=== PATIENT | female | born 1980 | race Caucasian/White ===

== ENCOUNTER 2021-01-23 15:17 | Outpatient (REF) | payer OTHER, SELFPAY ==
[2021-01-23 15:39] LABS: MANUAL DIFF FLAG NO
[2021-01-23 15:47] LABS: Basophils Absolute Auto 0.1 X10*3/uL (0.0-0.2); Basophils Percent Auto 0.7 % (0-2); Eosinophils Absolute Auto 0.1 X10*3/uL (0.0-0.4); Eosinophils Percent Auto 0.9 % (0-4); Hemoglobin 12.7 g/dl (12.0-16.0); Imm Gran Abs Auto 0.04 X10*3/uL (0.00-0.03); Imm Gran Pct Auto 0.3 % (0.0-0.4); Lymphocytes Absolute Auto 2.4 X10*3/uL (1.2-4.9); Lymphocytes Percent Auto 20.7 % (20-40); Mean Corpuscular HGB Conc 33.4 g/dl (31.0-35.0); Mean Corpuscular Volume 92.7 fL (80.0-98.0); Monocytes Absolute Auto 0.6 X10*3/uL (0.1-1.2); Monocytes Percent Auto 5.4 % (2-11); Neutrophils Absolute Auto 8.3 x10*3/uL (2.0-8.3); Platelet Count 251 X10*3/uL (160-400); Red Cell Distribution Width 12.8 % (11.0-16.0); White Blood Count 11.5 X10*3/uL (4.8-10.8)
[2021-01-23 16:12] LABS: Alanine Aminotransferase 16 U/L (0-31); Albumin Level 4.5 g/dL (3.5-5.0); Alkaline Phosphatase 47 U/L (39-117); Anion Gap 11 (12-20); Aspartate Amino Transferase 19 U/L (5-31); Bilirubin Total 0.7 mg/dL (0.0-1.0); Blood Urea Nitrogen 5 mg/dL (9-16); Calcium 9.9 mg/dL (8.4-10.2); Carbon Dioxide 27 mmol/L (22-29); Chloride 104 mmol/L (96-108); Cholesterol 199 mg/dL; Estimated Glomerular Filt Rate > 60; Glucose Fasting 98 mg/dL (60-99); HDL Cholesterol 81 mg/dL; LDL Cholesterol Calculated 110 mg/dl; Potassium 3.8 mmol/L (3.3-5.1); Sodium 138 mmol/L (135-145); Total Protein 7.1 g/dL (6.5-8.0); Triglycerides 41 mg/dL
[2021-01-24 23:16] LABS: Prolactin 9.5 ng/mL
== END 2021-01-23 15:18 | disposition home or self-care (01) ==
LOC: HO.LAB 15:17
PROVIDERS: PCP Family Medicine; Visit Provider Nurse Practitioner Psychiatric/Mental Health
DX: Z79.899 Other long term (current) drug therapy (principal)
CPT/HCPCS: 36415; 80053; 80061; 84146; 85025

== ENCOUNTER 2021-09-11 10:15 | Outpatient (RCR) | payer OTHER, SELFPAY ==
[2021-09-06 11:59] VITALS: BMI 21.1
--- NOTE | 2021-09-06 12:41 | HO.PS.ADMBH ---
[facility] Date of Service: 09/06/21 Chief Complaint: schizoaffective d/o Sources of Information: patient interviewed, chart reviewed and crisis/core team assessment reviewed HPI Medical Problems Affecting Mental Status: Yes (Has MS, under care of neurologist) Narrative: Patient is a 40-year-old female, with 2 children. Children are ages 11 and 13. Her mother lives in the home with patient and family. She describes family as supportive. Referred to [facility] through her therapist at [facility], due to increased symptoms of anxiety, difficulty with memory, feeling overwhelmed. Patient had a recent suicide attempt with use of a cord / strangulation, while camping in the [facility], and was hospitalized in [place]. Inpatient stay was at [facility], from 08/16/2021-08/20/2021. She states that her had brought her to the hospital at that time, where she stayed for four days. She describes precipitant to hospitalization as feeling as if she were a burden to her family, and that they would be better off without her. She denies any thoughts of SI at this time, states that she feels safe. She states that she discharged early, due to having a neurologist appointment that she did not want to miss. She is under the care of a neurologist due to diagnosis of MS, which she states she has had for the past 10 years. Patient states that she has experienced anxiety ?all of my life ?. She states she 1st sought treatment approximately 5 years ago, with a therapist. She states that at that time, she had a ?breakdown?, was drinking excessively, and was hospitalized. 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 She states that she has also had several detox admissions. She reports she has abstained from alcohol for the past 4 years. She reports that over the past several months, she has begun to feel increasingly distracted, frustrated. She states that she is having difficulty regulating her emotions, finding herself labile, starting to cry, then stopping abruptly. Reports that her mood is usually bright, happy. She was tangental at times, with odd affect. Tearful at times. She states that she is also struggling with smoking cessation, which is adding to her symptoms of anxiety at this time. She reports her main recovery technique is meditation. She has a psychiatric provider through [facility], but states that she has not seen provider in some time. She reports that she has received phone calls telling her she has missed scheduled appointments. She is also working with a therapist, who has referred her to this program. She is hopeful that this program may offer her structure and support, as well as help her to develop new healthy coping skills. Past Psychiatric History: Med trials: sertraline (exacerbated SI), lamotrigine, risperidone (flattening, decreased energy). IPLOC: 2X, Most recent [place], [place] 08/16/21-08/20/21. Other hospitalization was 5 years ago. Several detox stays (alcohol) Has current therapist (Mckay Iyer) and psychiatric provider (Gita Morales) through [facility]. Medical Evaluation Reviewed: Yes [facility] Medical History (Updated 09/06/21 @ 15:23 by Mercy Hoover) Multiple sclerosis Narrative: MS Family History: Father: Alcohol use Disorder Grandfather: Alcohol use disorder Social History: Raised by single mother, only child. Met developmental milestones as expected. 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 , with 2 middle school age children. Has been home schooling her children, they are transitioning to other school. Her mother also lives in home. Describes family as supportive. Finances are not a stressor. No service. No legal concerns. Substance History: Alcohol, last use 4 years ago. Several detox admits. Current nicotine use, attempting cessation. Remote history cannabis, LSD (college) Trauma History: None Meds/Allergies Meds Home Medications Medication Instructions Recorded Confirmed Type clonidine HCl 0.1 mg tablet 0.5 - 1 tab PO BID PRN Anxiety 09/06/21 09/06/21 History lamotrigine 25 mg tablet 2 tab PO BID 09/06/21 09/06/21 History mirtazapine 7.5 mg tablet 1 tab PO BEDTIME 09/06/21 09/06/21 History nicotine 7 mg/24 hr daily 1 patch topical DAILY 09/06/21 09/06/21 History transdermal patch Allergies Allergies Allergy/AdvReac Type Severity Reaction Status Date / Time cephalexin [From KEFLEX] Allergy Unknown ANAPHYLAXIS Unverified 11/03/19 19:04 Mental Status Exam Mental Status Exam Narrative: Well-developed, well-nourished female, in NAD. No abnormal movements, tics or tremors observed. Ambulation not observed. Dressed appropriately. Denies SI/HI, denies AH/VH. No perceptual disturbances noted. Patient Appearance: Well Grooomed and Appropriate Patient Orientation: Person, Place, Time and Situation Level of Consciousness: Appropriate Patient Behavior: Appropriate and Good Eye Contact Mood Description: Appropriate (States she is excited to be here.) and Anxious Affect Description: Anxious and Labile Patient Cognition Impaired: No Ability to Follow Directions: Good Speech Pattern: Clear, Perseverating, Coherent and Delayed (Slow rate) Memory Description: Intact (Appears Grossly intact) Hallucinations: None Delusions: Not Present Thought Process: Distracted Thought Content: positive for Circumstantial, positive for Perseveration (Focused repeatedly on meditation for her mental health as well as her family's well-being), positive for Thought Blocking and positive for Disorganized Depressive Symptoms: Increased Anxiety, Changes in Appetite (decreased), Crying Spells and Difficulty Concentrating Judgement: Fair Telehealth Telehealth Location of provider rendering services: practice address Location of patient: address on file Patient Identification confirmed using: Name, : Yes Telehealth method: video Patient verbally consented to treatment: Yes Patient verbally consented to billing insurance company: Yes Patient informed of any privacy concerns related to visit: Yes Minutes spent on Phone/Video with Pt.: 45 Assessment & Plan Assessment & Plan (1) Schizoaffective disorder, depressive type: Status: Acute Code(s): F25.1 - Schizoaffective disorder, depressive type Assessment and Plan: Patient with history of schizoaffective disorder. Recent SI attempt and hospitalization. Disorganized, circumstantial, appears to be thought blocking at times. Labile affect. No evidence of auditory or visual hallucinations observed or reported. Patient perseverative at times, focused on meditation being the answer to her problems as well as her family's. Patient hesitant to take medication. Reports that she stop taking risperidone, states that she stopped taking it because it was ?Flattening my energy level ?. She states that she was taking this medication anxiety. Med history search shows that she had been on this medication for some time with positive effect, for schizoaffective disorder. Last filled in April 2021 for a 90 day supply. 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 She states she is willing to continue with Lamictal at this time, as she has found it to be effective in the past. She reports that she is currently having a hard time, states that she has experienced anxiety for most of her life. Reports that over the past several months she has noticed an escalation in her symptoms, becoming more distracted, more frustrated, anxious. States that this culminated in a suicide attempt and hospitalization earlier this month. Denies any thoughts of SI/HI at this time, reports that she feels safe. Reviewed her current medications in detail. She states that she does not have a good relationship with her outpatient psychiatric provider. She then stated that the clinic called her often to let her know that she has missed appointments. She does appear disorganized, with little insight regarding medication adherence as directly related to psychiatric symptoms. We reviewed lamotrigine dosing. She states that she has been taking 25 mg twice daily. While reading the bottle, it was noted that she is currently prescribed 50 mg b.i.d.. She stated that she will start taking this increased dose today. Patient has multiple sclerosis, she reports that this appears to be affecting her focus and concentration. Patient's had reported sleep disturbance and decreased appetite upon admission to inpatient care earlier this month. She has since started mirtazapine, which is helping address both of these concerns. She states that she is sleeping well, and no concerns regarding appetite. She is focused on her children, as they are stopping home schooling and entering school soon. She is finding this transition difficult. (2) Generalized anxiety disorder: Status: Acute Code(s): F41.1 - Generalized anxiety disorder Assessment and Plan: Patient utilizing clonidine for symptoms of anxiety. She states that this medication is helping. (3) Alcohol use disorder, severe, in sustained remission: Status: Acute Code(s): F10.21 - Alcohol dependence, in remission Assessment and Plan: Patient states that she has had several detox admissions over past 4-5 years for alcohol use disorder. Reports her last drink was 4 years ago. Does not have any recovery support network in place, states that she uses meditation as a recovery tool. Plan 1. Continue with current [facility] plan of care. 2. Obtain collateral information. 3. Continue with current medications as prescribed. 4. Follow-up as per protocol. Patient educated on: diagnosis, medication risk/benefits and therapeutic strategies Informed Consent: understands and further education needed Reason for continued partial hosp. stay Substantial Risk for: harm to self, inability to function, rapid decompensation and med/psych decompensation Certification I certify that partial hospital treatment is medically necessary due to the symptoms and problems resulting from the patient's mental illness and the failure to treat the patient at the partial hospital level of care would likely result in the patient requiring inpatient psychiatric care which could not be prevented at a less intensive level of care.
--- NOTE | 2021-09-06 15:03 | PC.ADMIT ---
Admit to [facility] 09/06/2021 Diagnosis include: Schizoaffective disorder, Generalized Anxiety, ETOH abuse in remission x 4 years. Patient agreed to nursing admission assessment via telehealth. Nursing assessment completed. During assessment patient was alert and oriented x 4 with good eye contact, clean and dressed appropriately. Reports continues to report anxiety, denies any depression. Patient referred to [facility] by her therapist. Patient had a recent in-patient hospitalization for attempted suicide. Patient reports she attempted suicide during a family camping trip by using a bungee cord but stopped herself per her report. Patient was hospialized in [place] where they were camping. Patient reports she was hospitalized for only 4 days. Substance abuse: ETOH in remission x 4 years. Medical Hx includes dx of MS patient is followed by Neurologist. Patient denies any hx of trauma or abuse in the past or present. Currently patient denies depression, SI, HI. Patient denies visual or auditory hallucinations. All medications reconciled with patient. Patient states understanding of medications use, dose, schedule and side effects. Patient attended medication appointment with [facility]. `
--- NOTE | 2021-09-10 16:01 | HO.PHPPROGNO ---
Subjective Subjective Date of Service: 09/10/21 Reason For Visit: schizoaffective d/o Interim History: Describes mood as ?disorganized, not good ?. Reports feeling like a ?ripping sensation? in her head. States that this sensation is not new to her. States that she has been in denial regarding her mental health. Reports her functioning is disrupted, her thinking is not clear. Reports feeling anxious. Denies any SI/HI. Denies AH/VH. Taking Lamictal 100 mg daily, reports no side effects. Medication Compliance: Yes Side effects from medications: No Attending Groups: Yes Review of Systems Acute medical concerns: No Medical Review of Systems: unchanged Review of Systems Review of Systems Yes all other systems are reviewed and are negative Constitutional: Reports no additional constitutional complaints Psychiatric: Reports anxiety Mental Status Exam Mental Status Exam Narrative: NAD. Anxious mood/affect. Speech clear, normal rate, rhythm and volume. reports thinking as ?not clear ?. Appears distracted. Patient Appearance: Well Grooomed and Appropriate Patient Orientation: Person, Place, Time and Situation Level of Consciousness: Appropriate Patient Behavior: Appropriate and Good Eye Contact Mood Description: Fearful, Anxious and Nervous Affect Description: Anxious and Nervous Patient Cognition Impaired: No Ability to Follow Directions: Good Speech Pattern: Clear, Appropriate and Coherent Memory Description: Intact Hallucinations: None Delusions: Not Present (Denies, no statements made to infer paranoia or other delusional thought.) Thought Process: Distracted Thought Content: positive for Circumstantial, positive for Preoccupation, positive for Thought Blocking, positive for Slowed Thinking and positive for Disorganized Depressive Symptoms: Increased Anxiety, Changes in Appetite (decreased), Crying Spells, Loss of Int. in Activity, Unexplained Headaches and Difficulty Concentrating Judgement: Fair Diagnostics Vital Signs (24Hr): BMI result Body Mass Index 21.1 Assessment & Plan Assessment & Plan (1) Schizoaffective disorder, depressive type: Status: Acute Code(s): F25.1 - Schizoaffective disorder, depressive type Assessment and Plan: Describes mood as ?disorganized, not good ?. Reports feeling like a ?ripping sensation? in her head. States that this sensation is not new to her. States that she has been in denial regarding her mental health. Reports her functioning is disrupted, her thinking is not clear. Reports feeling anxious. Denies any SI/HI. Denies AH/VH. Taking Lamictal 100 mg daily, reports no side effects. We discussed Risperdal, as she had been taking this for symptoms of psychosis in the past with positive affect. She states that she stopped it in April, as she felt she did not need it anymore, and it was flattening . She states that she does feel like she is declining psychiatrically, and is now willing to restart this medication. She did not appear to have any perceptual disturbances while meeting with me, did not respond to any type of internal stimuli. She was able to state that she feels safe. She states that her mother has her children right now at the beach. She states that her is on his way home to check on her. She describes her mother and her as extremely supportive, and that she feels safe. Risperidone does patient had been receiving is 1 mg at bedtime. She was encouraged to start this today. She states that she will. She does not need a refill at this time, as she has a supply at home. (2) Generalized anxiety disorder: Status: Acute Code(s): F41.1 - Generalized anxiety disorder Assessment and Plan: Patient continues with anxiety. Reports that her is on his way home, and that she is looking forward to this. She states that she will feel reassured once he is there. She is experiencing some anxiety regarding fact that her children are not home at this time as well. (3) Alcohol use disorder, severe, in sustained remission: Status: Acute Code(s): F10.21 - Alcohol dependence, in remission Assessment and Plan: Patient reports she remains abstinent from use of alcohol. Denies any cravings at this time. Plan 1. Continue with current [facility] plan of care. 2. Start Risperdal 1 mg at bedtime daily. 3. Continue with other medications as currently prescribed. 4. Follow-up as per protocol. Patient educated on: diagnosis, medication risk/benefits, substance abuse and therapeutic strategies Informed Consent: understands Reason for contiued partial hosp. stay Substantial Risk for: harm to self, inability to function, rapid decompensation and med/psych decompensation Certification I certify that partial hospital treatment is medically necessary due to the symptoms and problems resulting from the patient's mental illness and the failure to treat the patient at the partial hospital level of care would likely result in the patient requiring inpatient psychiatric care which could not be prevented at a less intensive level of care. I spent minutes with the patient and/or on the patient floor today, greater than?50% of which was spent counseling/coordinating care. Discharge Plan Discharge Attending provider: Aaron Soto Medications: No Action lamotrigine 25 mg tablet 2 tab PO BID clonidine HCl 0.1 mg tablet 0.5 - 1 tab PO BID PRN (Reason: Anxiety) mirtazapine 7.5 mg tablet 1 tab PO BEDTIME nicotine 7 mg/24 hr patch 24 hour 1 patch topical DAILY Telehealth Telehealth Location of provider rendering services: practice address Location of patient: address on file Patient Identification confirmed using: Name, : Yes Telehealth method: video Patient verbally consented to treatment: Yes Patient verbally consented to billing insurance company: Yes Patient informed of any privacy concerns related to visit: Yes Minutes spent on Phone/Video with Pt.: 15
--- NOTE | 2021-09-12 08:40 | HO.PHPPROGNO ---
Subjective Subjective Date of Service: 09/12/21 Reason For Visit: schizoaffective d/o Medical Problems Affecting Mental Status: No Interim History: Clinician and I called patient, spoke to patient and her Luc. Patient has not been taking risperidone consistently as per last visit, patient has also not been taking Lamictal consistently. Has been reports she has been making comments stating ?I am not good enough ?, ?I do not deserve to be here ?. He states that he had been speaking to her about bringing her to the hospital, as he feels she needs IPLOC. She recently was inpatient in [facility] earlier this month, due to suicide attempt with a bungee cord while camping. Patient states that she is not able to think clearly, although she denies any AH/VH. Both she and her acknowledged that she has had increasingly disorganized thoughts, disorientation, racing thoughts, intrusive thoughts, slowness in activity, difficulty thinking and understanding/processing information. During last encounter she was agreeable to taking risperidone 1 mg daily, she has ample supply of medication in the home. She was also agreeable to take Lamictal 100 mg daily. reports she is having difficulty following consistent schedule, and has had increased anxiety, excessive worry, unable to focus. Patient agrees to allow to bring her to [facility] for evaluation. CARE team has been notified of her expected arrival. Medication Compliance: No Side effects from medications: No Attending Groups: Yes Review of Systems Medical Review of Systems: unchanged Review of Systems Review of Systems Yes all other systems are reviewed and are negative Constitutional: Reports no additional constitutional complaints Mental Status Exam Mental Status Exam Narrative: Spoke with patient and on phone. Denies any auditory or visual hallucinations. Presents with odd speech, superficially bright affect. Patient Orientation: Person, Place, Time and Situation Level of Consciousness: Appropriate Patient Behavior: Appropriate and Talkative Mood Description: Fearful, Anxious and Nervous Patient Cognition Impaired: No Ability to Follow Directions: Fair Speech Pattern: Clear, Perseverating and Coherent Memory Description: Intact Hallucinations: None Delusions: Bizarre Thought Process: Distracted Thought Content: positive for Circumstantial, positive for Preoccupation, positive for Thought Blocking, positive for Slowed Thinking, positive for Disorganized and positive for Suicidal Ideation Depressive Symptoms: Increased Anxiety, Changes in Appetite (decreased), Crying Spells, Loss of Int. in Activity and Difficulty Concentrating Judgement: Poor Diagnostics Vital Signs (24Hr): BMI result Body Mass Index 21.1 Assessment & Plan Assessment & Plan (1) Schizoaffective disorder, depressive type: Status: Acute Code(s): F25.1 - Schizoaffective disorder, depressive type Assessment and Plan: Patient appears to be decompensating. Has not been taking medications consistently, presents with increased confusion. States that her ?thoughts are not clear . reports she has made remarks such as ?I am not good enough ?, ?I do not deserve to be here ?. Per 's and patient report, she has had increasingly disorganized thoughts, disorientation, racing thoughts, intrusive thoughts, slowness in activity, difficulty thinking and understanding/processing information. Patient had been hospitalized briefly in [facility] earlier this month for suicide attempt with a bungee cord while camping. is concerned, plans to bring her to [facility] for crisis evaluation this morning. Plan 1. Patient to arrive at [facility] this morning for crisis evaluation. Patient educated on: diagnosis and medication risk/benefits Guardian/Caregiver educated on: diagnosis and medication risk/benefits Informed Consent: understands Reason for contiued partial hosp. stay Substantial Risk for: harm to self, inability to function, rapid decompensation and med/psych decompensation Certification I certify that partial hospital treatment is medically necessary due to the symptoms and problems resulting from the patient's mental illness and the failure to treat the patient at the partial hospital level of care would likely result in the patient requiring inpatient psychiatric care which could not be prevented at a less intensive level of care. I spent minutes with the patient and/or on the patient floor today, greater than?50% of which was spent counseling/coordinating care. Discharge Plan Discharge Attending provider: Aaron Soto Medications: No Action lamotrigine 25 mg tablet 2 tab PO BID clonidine HCl 0.1 mg tablet 0.5 - 1 tab PO BID PRN (Reason: Anxiety) mirtazapine 7.5 mg tablet 1 tab PO BEDTIME nicotine 7 mg/24 hr patch 24 hour 1 patch topical DAILY Telehealth Telehealth Location of provider rendering services: practice address Location of patient: address on file Patient Identification confirmed using: Name, : Yes Telehealth method: voice only Patient verbally consented to treatment: Yes Patient verbally consented to billing insurance company: Yes Patient informed of any privacy concerns related to visit: Yes Minutes spent on Phone/Video with Pt.: 10
--- NOTE | 2021-09-16 10:14 | PC.NURSE ---
Discharge Note: Patient admitted to in patient unit at [facility] on 09/12/2021. Discharged from [facility] on 09/10/2021.
--- NOTE | 2021-09-19 15:26 | PC.NURSE ---
Case closed in treatment team.
== END 2021-09-11 23:59 | disposition home or self-care (01) ==
LOC: HO.PHPA 10:15
PROVIDERS: Visit Provider Psychiatry & Neurology Psychiatry
DX: F25.1 Schizoaffective disorder, depressive type (principal); F41.1 Generalized anxiety disorder; F10.21 Alcohol dependence, in remission; Z91.51 Personal history of suicidal behavior; Z79.899 Other long term (current) drug therapy
CPT/HCPCS: 90791; 90853

== ENCOUNTER 2021-09-12 10:00 | Inpatient (IN) | payer OTHER, SELFPAY ==
--- NOTE | ~2021-09-12 | XR_ITS ---
EXAMINATION: XR CHEST CLINICAL INFORMATION: Left upper chest wall tenderness COMPARISON: None TECHNIQUE: Frontal view of the chest was obtained. FINDINGS: Lungs are well-inflated and clear. Trachea is midline in position. No interstitial disease, consolidation or mass. No pleural effusion or pneumothorax. Cardiac silhouette and pulmonary vessels are normal in size. The mediastinum and anu have normal contour. No acute rib fractures are identified. Questionable finding of old healed nondisplaced fractures of left lateral sixth and seventh ribs. The visualized bones of the shoulders are normal. XR/XR chest 1V IMPRESSION: Lungs are normal. No acute pulmonary disease. Also, there is no acute osseous abnormality.
[2021-09-12 10:41] VITALS: BP 123/79; PULSE 120; RESP 18; TEMP 36.8; O2SAT 96; BMI 21.9
--- NOTE | 2021-09-12 11:24 | ED.PSYCH ---
HPI - Psych General Chief Complaint: Psychiatric Symptoms Stated Complaint: crisis Time Seen by Provider: 09/12/21 11:04 Source: patient Mode of arrival: ambulatory History of Present Illness HPI Narrative: 40-year-old female with a past medical history of anxiety, ETOH abuse in remission, schizoaffective disorder, remote history of MS, presenting to ED recommended by [facility] program psychiatrist for increasing disorganized thoughts, intrusive thoughts, difficulty caring for herself at home, & depression with suicide attempt by hanging 2 weeks ago. Patient recently inpatient in [place], reports also recently seen at [facility] had head CT and MRI. patient reports auditory hallucinations, denies visual hallucinations, illicit drug or ETOH use. reports cigarette use. Admits to taking prescribed medications. Also reports lump to left anterior chest wall which is painful noted this morning. Denies fever, cough, abdominal pain, nausea / vomiting, HI, VH MD complaint: anxiety and hallucinations Onset (ago): week(s) Related Data Home Medications Medication Instructions Recorded Confirmed clonidine HCl 0.1 mg tablet 0.5 - 1 tab PO BID PRN Anxiety 09/06/21 09/12/21 lamotrigine 25 mg tablet 2 tab PO BID 09/06/21 09/12/21 mirtazapine 7.5 mg tablet 1 tab PO BEDTIME 09/06/21 09/12/21 nicotine 7 mg/24 hr daily 1 patch topical DAILY 09/06/21 09/12/21 transdermal patch Allergies Allergy/AdvReac Type Severity Reaction Status Date / Time cephalexin [From KEFLEX] Allergy Unknown ANAPHYLAXIS Unverified 11/03/19 19:04 Review of Systems Review of Systems: Constitutional: No Fever, No Chills, No Fatigue, No Malaise ENT/Mouth: No Ear Pain, No Nasal Congestion, No sore throat, No Rhinorrhea, No Swallowing Difficulty Eyes: No Eye Pain, No Swelling, No Redness Cardiovascular: + Chest Wall Pain, No SOB, No Dyspnea on Exertion, No Orthopnea, No Edema, No Palpitations Respiratory: No Cough, No Sputum, No Wheezing, No Smoke Exposure, No Dyspnea Gastrointestinal: No Nausea, No Vomiting, No Diarrhea, No Constipation, No Abdominal pain Genitourinary: No Dysuria, No Urinary Frequency, No Hematuria, No Urinary Incontinence/retention, No Flank Pain Musculoskeletal: No joint pain, No Myalgias, No Joint Swelling Skin: No Skin Lesions, No rash Neuro: No Weakness, No Numbness, No Dizziness, No Headache Psych: + Anxiety/Panic, + Depression, + SI, No HI/VH, +AH, No Social Issues Yes all other systems are reviewed and are negative Constitutional: Constitutional: Reports as per [facility] Past Medical History Attestation statement: The following information was validated with the patient. Medical History (Updated 09/12/21 @ 16:02 by KAELA Fenton) Multiple sclerosis Social History Social History Household Members: Spouse, Children and Other Household Members Other:: Biological mother Patient Tobacco Use Status: Current everyday Tobacco user Tobacco use type: Cigarette Cigarette Packs Per Day: 1 Cigarettes Per Day: 20 Years Smoked: 20 Advance Directives: No Advance Directives Information Provided: No Healthcare Proxy: No Guardian: No Physical Exam Vital Signs: Vital Signs: Last Vital Signs Temp 98.3 F 09/12/21 10:41 Pulse 120 H 09/12/21 10:41 Resp 18 09/12/21 10:41 BP 123/79 09/12/21 10:41 Pulse Ox 96 09/12/21 10:41 O2 Del Method 09/12/21 10:41 BMI result Body Mass Index 21.9 Const: General: cooperative, healthy appearing, no acute distress and anxious Orientation/consciousness: patient oriented x3 Limitations: no limitations HEENT: Head: Yes normal to inspection and Yes atraumatic Ears: hearing grossly normal bilaterally General nose exam: Normal external nose present Face and sinus: Yes normal facial exam Eyes: General: appearance normal, both eyes and all related structures Pupils: Equal, round and reactive pupils present EOM: EOMs intact bilaterally Neck: Neck: Yes normal visual inspection and Yes no meningeal signs Chest: Other: + small hard lump noted to left superior/anterior chest wall with mild tenderness. No erythema/ functions or induration. Chest palpation & inspection: no crepitus Resp: Effort & Inspection: normal respiratory effort and no respiratory distress Auscultation: clear to auscultation bilaterally Cardio: Rate: regular rate Heart sounds: S1 normal heart sound present and S2 normal heart sound present GI: Inspection: Yes normal to inspection Palpation (GI): Soft to palpation, nontender, no guarding and not rigid : General: Yes no CVA tenderness Back/Spine/Pelvis: Back: no CVA tenderness Skin: Rashes: no rashes Wounds: no wounds Neuro: General: patient oriented x3, tone normal, moves all extremities, no meningeal signs, no focal motor deficits and CN's II-XI intact bilaterally Cranial nerves: Yes Equal, round and reactive pupils present Gait exam (Neuro): Normal gait present Extrem: General: Yes normal to inspection Psych: Attitude: cooperative Thought process: Racing thoughts present Thought content: no homicidality, Paranoid delusions present, Hallucination(s) present auditory and Depressive thoughts present Course Course Course Narrative: - mild leukocytosis of 11. Mild hyponatremia to 131, will continue to monitor. ALT mildly elevated. Labs otherwise unremarkable. -UA not infected -COVID-19 negative XR chest 1V IMPRESSION: Lungs are normal. No acute pulmonary disease. Also, there is no acute osseous abnormality. > patient is medically cleared to be an inpatient bed search by CARE team. Physician observation initiated - patient going upstairs to psych floor later today MDM - Psych MDM Narrative Medical decision making narrative: 40-year-old female with a past medical history of anxiety, ETOH abuse in remission, schizoaffective disorder, presenting to ED recommended by partial program psychiatrist for increasing disorganized thoughts, intrusive thoughts, difficulty caring for herself at home, & depression with suicide attempt by hanging 2 weeks ago. On exam tachycardic likely from anxiety, NAD, physical exam as above, patient anxious with racing/disorganized thoughts. Concern for schizoaffective disorder vs schizophrenia vs substance abuse. Will request records from [facility] as appears patient had previous recent workup to rule out organic causes plan: EKG, labs, UA, drug screen, CXR, care team consult Differential Diagnosis Differential diagnosis: Likely acute psychosis, suicidal ideation, depression, acute anxiety, mood disorder and schizoaffective disorder Medical Records Attestation: I reviewed the patient's medical records. Lab Data Attestation: I reviewed the patient's lab results. Result diagrams: 09/12/21 12:11 09/12/21 12:11 Labs: Lab Results 09/12/21 09/12/21 09/12/21 Range/Units 11:31 12:02 12:02 WBC (4.8-10.8) X10*3/uL RBC (4.20-5.50) X10*6/uL Hgb (12.0-16.0) g/dl Hct (37.0-47.0) % MCV (80.0-98.0) fL MCH (27.0-33.0) pg MCHC (31.0-35.0) g/dl RDW (11.0-16.0) % Plt Count (160-400) X10*3/uL MPV (9.4-12.3) fL Immature Gran % (Auto) (0.0-0.4) % Neut % (Auto) (45-73) % Lymph % (Auto) (20-40) % [place] % (Auto) (2-11) % Eos % (Auto) (0-4) % Baso % (Auto) (0-2) % Lymph # (Auto) (1.2-4.9) X10*3/uL [place] # (Auto) (0.1-1.2) X10*3/uL Eos # (Auto) (0.0-0.4) X10*3/uL Baso # (Auto) (0.0-0.2) X10*3/uL Abs Immat Gran (auto) (0.00-0.03) X10*3/uL Absolute Neuts (auto) (2.0-8.3) x10*3/uL Absolute Nucleated RBC (0.0-0.012) X10*3/uL Nucleated RBC % (auto) (0.0-0.2) /100WBC Sodium (135-145) mmol/L Potassium (3.3-5.1) mmol/L Chloride (96-108) mmol/L Carbon Dioxide (22-29) mmol/L Anion Gap (12-20) BUN (9-16) mg/dL Creatinine (0.5-1.4) mg/dL Estim Creat Clear Calc Estimated GFR Random Glucose (60-115) mg/dL Calcium (8.4-10.2) mg/dL Magnesium (1.6-2.6) mg/dL Total Bilirubin (0.0-1.0) mg/dL Direct Bilirubin (0.0-0.5) mg/dL AST (5-31) U/L ALT (0-31) U/L Alkaline Phosphatase (39-117) U/L Troponin I High Sens (<3.5-17.0) ng/L Total Protein (6.5-8.0) g/dL Albumin (3.5-5.0) g/dL Urine Color YELLOW Urine Appearance CLEAR Urine pH 7.0 (5.0-8.0) Ur Specific [place] 1.010 (1.005-1.025) Urine Protein NEG (NEG-TRACE) MG/DL Urine Glucose (UA) NEG (NEG) MG/DL Urine Ketones NEG (NEG) MG/DL Urine Blood NEG (NEG) Urine Nitrite NEG (NEG) Ur Leukocyte Esterase 1+ H (NEG) Urine RBC 0-2 (0) /HPF Urine WBC 0-2 (0-4) /HPF Ur Squamous Epith Cells 2+ /LPF Urine Bacteria TRACE /LPF Urine Opiates Screen Not Detected (Not Detect) Urine Fentanyl Screen Not Detected (Not Detect) Ur Barbiturates Screen Not Detected (Not Detect) Ur Phencyclidine Scrn Not Detected (Not Detect) Ur Amphetamines Screen Not Detected (Not Detect) U Benzodiazepines Scrn Not Detected (Not Detect) Urine Cocaine Screen Not Detected (Not Detect) U Marijuana (THC) Screen Not Detected (Not Detect) Ethyl Alcohol mg/dL COVID-19 (CLAUDINE) Negative (Negative) COVID-19 Clin Com See Note 09/12/21 09/12/21 09/12/21 Range/Units 12:11 12:11 12:11 WBC 11.6 H (4.8-10.8) X10*3/uL RBC 4.73 (4.20-5.50) X10*6/uL Hgb 14.4 (12.0-16.0) g/dl Hct 43.0 (37.0-47.0) % MCV 90.9 (80.0-98.0) fL MCH 30.4 (27.0-33.0) pg MCHC 33.5 (31.0-35.0) g/dl RDW 13.5 (11.0-16.0) % Plt Count 315 D (160-400) X10*3/uL MPV 10.9 (9.4-12.3) fL Immature Gran % (Auto) 0.5 H (0.0-0.4) % Neut % (Auto) 72.1 (45-73) % Lymph % (Auto) 19.3 L (20-40) % [place] % (Auto) 7.0 (2-11) % Eos % (Auto) 0.5 (0-4) % Baso % (Auto) 0.6 (0-2) % Lymph # (Auto) 2.3 (1.2-4.9) X10*3/uL [place] # (Auto) 0.8 (0.1-1.2) X10*3/uL Eos # (Auto) 0.1 (0.0-0.4) X10*3/uL Baso # (Auto) 0.1 (0.0-0.2) X10*3/uL Abs Immat Gran (auto) 0.06 H (0.00-0.03) X10*3/uL Absolute Neuts (auto) 8.4 H (2.0-8.3) x10*3/uL Absolute Nucleated RBC 0.000 (0.0-0.012) X10*3/uL Nucleated RBC % (auto) 0.0 (0.0-0.2) /100WBC Sodium 131 L (135-145) mmol/L Potassium 4.3 (3.3-5.1) mmol/L Chloride 99 (96-108) mmol/L Carbon Dioxide 23 (22-29) mmol/L Anion Gap 13 (12-20) BUN 8 L D (9-16) mg/dL Creatinine 0.91 (0.5-1.4) mg/dL Estim Creat Clear Calc 78.3 Estimated GFR > 60 Random Glucose 77 (60-115) mg/dL Calcium 9.6 (8.4-10.2) mg/dL Magnesium 2.2 (1.6-2.6) mg/dL Total Bilirubin 0.4 (0.0-1.0) mg/dL Direct Bilirubin 0.2 (0.0-0.5) mg/dL AST 31 D (5-31) U/L ALT 53 H (0-31) U/L Alkaline Phosphatase 66 D (39-117) U/L Troponin I High Sens < 3.5 (<3.5-17.0) ng/L Total Protein 7.5 (6.5-8.0) g/dL Albumin 4.9 (3.5-5.0) g/dL Urine Color Urine Appearance Urine pH (5.0-8.0) Ur Specific [place] (1.005-1.025) Urine Protein (NEG-TRACE) MG/DL Urine Glucose (UA) (NEG) MG/DL Urine Ketones (NEG) MG/DL Urine Blood (NEG) Urine Nitrite (NEG) Ur Leukocyte Esterase (NEG) Urine RBC (0) /HPF Urine WBC (0-4) /HPF Ur Squamous Epith Cells /LPF Urine Bacteria /LPF Urine Opiates Screen (Not Detect) Urine Fentanyl Screen (Not Detect) Ur Barbiturates Screen (Not Detect) Ur Phencyclidine Scrn (Not Detect) Ur Amphetamines Screen (Not Detect) U Benzodiazepines Scrn (Not Detect) Urine Cocaine Screen (Not Detect) U Marijuana (THC) Screen (Not Detect) Ethyl Alcohol < 10 mg/dL COVID-19 (CLAUDINE) (Negative) COVID-19 Clin Com ECG Data Attestation: I personally reviewed and interpreted this ECG as follows: ECG interpretation date: 09/12/21 ECG interpretation time: 12:09 Prior ECG tracings: not available for review Interpretation: EKG normal sinus rhythm at rate of 87. QTC 423. No STEMI. mild Diffuse peaked T-waves. No priors to compare Discharge Plan Discharge Clinical Impression: Schizoaffective disorder, depressive type, Depression Patient Disposition: Admitted As Inpatient Prescriptions: No Action lamotrigine 25 mg tablet 2 tab PO BID clonidine HCl 0.1 mg tablet 0.5 - 1 tab PO BID PRN (Reason: Anxiety) mirtazapine 7.5 mg tablet 1 tab PO BEDTIME nicotine 7 mg/24 hr patch 24 hour 1 patch topical DAILY Interventions: Admission Worksheet (ED) Last Done: 09/12/21 16:10
--- NOTE | 2021-09-12 11:28 | ECG_ITS ---
Test Reason : MEDICAL CLEARANCE Blood Pressure : / mmHG Vent. Rate : 087 BPM Atrial Rate : 087 BPM P-R Int : 132 ms QRS Dur : 072 ms QT Int : 352 ms P-R-T Axes : 064 070 058 degrees QTc Int : 423 ms Normal sinus rhythm Normal ECG No previous ECGs available Referred By: Ольга Comer Electronically Signed By:RUDY JACKSON
[2021-09-12] MEDS: LORazepam 1 MG TABLET PO (11:45)
[2021-09-12 12:10] LABS: Appearance Urine CLEAR; Color Urine YELLOW; Glucose Urine UA NEG (NEG); Leukocyte Esterase Urine 1+ (NEG); Nitrite Urine NEG (NEG); UACC Culture Trigger YES; Urine Blood NEG (NEG); Urine Ketones NEG (NEG); Urine Protein NEG (NEG-TRACE)
[2021-09-12 12:18] LABS: MANUAL DIFF FLAG NO
[2021-09-12 12:20] LABS: Basophils Absolute Auto 0.1 X10*3/uL (0.0-0.2); Basophils Percent Auto 0.6 % (0-2); Eosinophils Absolute Auto 0.1 X10*3/uL (0.0-0.4); Eosinophils Percent Auto 0.5 % (0-4); Hemoglobin 14.4 g/dl (12.0-16.0); Imm Gran Abs Auto 0.06 X10*3/uL (0.00-0.03); Imm Gran Pct Auto 0.5 % (0.0-0.4); Lymphocytes Absolute Auto 2.3 X10*3/uL (1.2-4.9); Lymphocytes Percent Auto 19.3 % (20-40); Mean Corpuscular HGB Conc 33.5 g/dl (31.0-35.0); Mean Corpuscular Hemoglobin 30.4 pg (27.0-33.0); Mean Corpuscular Volume 90.9 fL (80.0-98.0); Mean Platelet Volume 10.9 fL (9.4-12.3); Monocytes Absolute Auto 0.8 X10*3/uL (0.1-1.2); Neutrophils Absolute Auto 8.4 x10*3/uL (2.0-8.3); Neutrophils Percent Auto 72.1 % (45-73); Platelet Count 315 X10*3/uL (160-400); Red Blood Count 4.73 X10*6/uL (4.20-5.50); Red Cell Distribution Width 13.5 % (11.0-16.0); White Blood Count 11.6 X10*3/uL (4.8-10.8)
[2021-09-12 12:21] LABS: COVID-19 Test Negative (Negative); IDNOW Serial# 16C4AD1C
--- NOTE | 2021-09-12 12:22 | PHA.MEDREC ---
Pharmacy Consult ? Medication Reconciliation Pharmacy has completed the medication reconciliation. Patient admits to not being very compliant with nicotine patches.
[2021-09-12 12:31] LABS: Squamous Epithelial Cell Urine 2+ /LPF
[2021-09-12 12:32] LABS: Bacteria Urine TRACE /LPF; RBC Urine 0-2 /HPF (0); WBC Urine 0-2 /HPF (0-4)
[2021-09-12 12:42] LABS: Alanine Aminotransferase 53 U/L (0-31); Albumin Level 4.9 g/dL (3.5-5.0); Alkaline Phosphatase 66 U/L (39-117); Anion Gap 13 (12-20); Aspartate Amino Transferase 31 U/L (5-31); Bilirubin Direct 0.2 mg/dL (0.0-0.5); Bilirubin Total 0.4 mg/dL (0.0-1.0); Blood Urea Nitrogen 8 mg/dL (9-16); Calcium 9.6 mg/dL (8.4-10.2); Carbon Dioxide 23 mmol/L (22-29); Chloride 99 mmol/L (96-108); Creatinine Clr Calc Pharmacy 78.3; Estimated Glomerular Filt Rate > 60; Glucose Random 77 mg/dL (60-115); Magnesium 2.2 mg/dL (1.6-2.6); Potassium 4.3 mmol/L (3.3-5.1); Sodium 131 mmol/L (135-145); Total Protein 7.5 g/dL (6.5-8.0)
[2021-09-12 12:47] LABS: Troponin-I High Sensitivity < 3.5 ng/L (<3.5-17.0)
[2021-09-12 12:56] LABS: Amphetamine Screen Urine Not Detected (Not Detect); Barbiturates, Urine Not Detected (Not Detect); Benzodiazepines Screen Urine Not Detected (Not Detect); Cannabinoid Screen Urine Not Detected (Not Detect); Cocaine Screen Urine Not Detected (Not Detect); Fentanyl, urine Not Detected (Not Detect); Opiate Screen Urine Not Detected (Not Detect); Phencyclidine Screen Urine Not Detected (Not Detect)
--- NOTE | 2021-09-12 14:37 | PC.NURSE ---
Per patient, sober for 4 years. No recent ETOH use
[2021-09-12 14:51] LABS: Ethanol < 10 mg/dL
[2021-09-12 17:01] VITALS: BP 103/58; PULSE 85; RESP 16; TEMP 36.6; O2SAT 96
[2021-09-12] MEDS: hydrOXYzine HCL 25 MG TABLET PO (18:46)
[2021-09-12 18:55] VITALS: BP 114/67; PULSE 81; TEMP 36.6
[2021-09-12] MEDS: traZODone HCL 50 MG TABLET PO (20:38)
[2021-09-12] MEDS: lamoTRIgine 25 MG TABLET 50 MG PO (20:39)
[2021-09-12] MEDS: Mirtazapine 7.5 MG TABLET PO (20:39)
--- NOTE | 2021-09-12 23:36 | PC.ADMIT ---
A white, , female pt aged 40 years was [facility] at 1739 following referral from [facility] ED and CARE team. Pt is presently a pt of [facility] and had a recent IPLOC in [place] preceded by a suicide attempt by hanging about two weeks ago while on a family camping trip. Pt was reported to have stopped the attempt by herself. Pt arrived at [facility] ED on 09/12/21 c/o AH in the form of commanding voices, the recent suicide attempt and disorganized thoughts. Pt has a history of inpatient psychiatric hospitalizations and one instance foe Etoh. Pt was alert and oriented in CARE team assessment but was disorganized and reported having difficulty concentrating because of the voice in her head. Pt had said the voice was sometimes malicious and other times encouraging. Pt said to this science writer that the voice has commanded suicide and sounds like a male voice, but is not a recognized voice. CARE team assessment says voices began about six years ago after the anniversary of her mothers . Pt is with two children. In regards to the suicide attempt, pt said my thinking went down a rabbit hole in which I believed that I was a burden and my loved ones would be better off without me . Pt stated when she woke up she was grateful to be alive and couldn't believe she had thought her family would be better off with her . Pt denied current SI and AH. Pt says can seek help from staff. 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 Pt denies pain. Pt reports was to start Risperdal 0.5mg daily and said it was a medication that has been helpful in the past. Pt reports that her Lamictal was recently increased to 100mg BID, but that her pharmacy is unaware of the recent change. Pt has a history of medication noncompliance; at times forgetting to take medication, at other times taking more than ordered due to memory issues. Pt has multiple sclerosis and reports experiencing face clenching that appears to be a grimace and is involuntary and unrelated to anxiety. Pt first noticed face clenching on 09/11/21. Pt reports periodic insomnia and early awakening. Pt reports fluttering in my head that she thinks is related to anxiety. Pt noted a lump on the right anterior wall of her chest and said will seek follow-up as an outpatient. BURGESS is negative. [id number] done; treatment plan and safety tool done but need signing. Admission orders obtained. Pt is resting in room on 15 minute safety checks at this time.
[2021-09-13 06:00] VITALS: BP 119/72; PULSE 87; RESP 16; TEMP 36.6; O2SAT 96
[2021-09-13 08:47] LABS: Alanine Aminotransferase 47 U/L (0-31); Albumin Level 4.8 g/dL (3.5-5.0); Alkaline Phosphatase 69 U/L (39-117); Anion Gap 14 (12-20); Aspartate Amino Transferase 25 U/L (5-31); Bilirubin Total 0.3 mg/dL (0.0-1.0); Blood Urea Nitrogen 12 mg/dL (9-16); Calcium 9.6 mg/dL (8.4-10.2); Carbon Dioxide 27 mmol/L (22-29); Chloride 100 mmol/L (96-108); Cholesterol 233 mg/dL; Creatinine Clr Calc Pharmacy 71.2; Estimated Glomerular Filt Rate > 60; Glucose Fasting 86 mg/dL (60-99); HDL Cholesterol 87 mg/dL; LDL Cholesterol Calculated 139 mg/dl; Potassium 4.5 mmol/L (3.3-5.1); Sodium 136 mmol/L (135-145); Total Protein 7.3 g/dL (6.5-8.0); Triglycerides 37 mg/dL
[2021-09-13 09:07] LABS: Free T4 (Free Thyroxine) 1.38 ng/dL (0.71-1.85); Thyroid Stimulating Hormone 1.23 uIU/mL (0.32-4.0)
[2021-09-13] MEDS: lamoTRIgine 25 MG TABLET 50 MG PO (09:10)
[2021-09-13] MEDS: clonazePAM 0.5 MG TABLET PO (09:10)
[2021-09-13 09:22] LABS: Folate 16.6 ng/mL (> or = 4.0); Vitamin B12 800 pg/mL (200-900)
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
[2021-09-13] MEDS: Acetaminophen 325 MG TABLET 650 MG PO (15:57)
[2021-09-13 18:00] VITALS: BP 118/73; PULSE 91; RESP 18; TEMP 36.4; O2SAT 98
[2021-09-13] MEDS: Mirtazapine 15 MG TABLET PO (20:12)
[2021-09-13] MEDS: cloNIDine HCL 0.1 MG TABLET PO (20:13)
[2021-09-13] MEDS: lamoTRIgine 100 MG TABLET PO (20:13)
[2021-09-13] MEDS: LORazepam 0.5 MG TABLET PO (21:43)
[2021-09-13] MEDS: traZODone HCL 50 MG TABLET PO (21:43)
[2021-09-14] MEDS: risperiDONE 0.5 MG TABLET PO (08:31)
[2021-09-14] MEDS: lamoTRIgine 100 MG TABLET PO ×2 (08:31→19:59)
[2021-09-14] MEDS: cloNIDine HCL 0.1 MG TABLET PO ×2 (08:31→19:59)
[2021-09-14 09:00] VITALS: BP 118/59; PULSE 95; TEMP 36.5; O2SAT 97
[2021-09-14] MEDS: LORazepam 0.5 MG TABLET PO (11:39)
[2021-09-14] MEDS: Cyclobenzaprine HCl 5 MG TABLET PO (16:43)
[2021-09-14] MEDS: Acetaminophen 325 MG TABLET 650 MG PO (16:43)
[2021-09-14] MEDS: Lurasidone HCl 40 MG TABLET PO (17:38)
--- NOTE | 2021-09-14 19:18 | P.PNPSI_ITS ---
Subjective Subjective Date of Service: 09/14/21 Reason For Visit: Depression Suicide Attempt Subjective Notes: Dowd Warning and Conditional Voluntary Healthcare Proxy: No Guardianship: No Medical Problems Affecting Mental Status: No Interim History: Patient seen and discussed with team. Patient evaluated today and upon interview she reports concern with what she describes as facial grimacing, not observed, says it is mentally distracting, affects her concentration and awareness. She says it feels like spasms and gives her an uncomfortable sensation. She asked about neurontin, discussed that this is more for nerve pain. Pt most recently on Risperdal x 3 yrs up to 2 mg but says it was too sedating, not helpful at lower doses, currently on 0.5 mg. states the plan was to get off it with her OP provider Gita Marrero. Pt is labile, will break out in crying episodes but attempts to supress with a smile. She appears quite distressed, missing her family. In the milieu, patient is safe and appropriate in behavior. Denies SI/SIB/HI upon inquiry. Says she feels safe. Medication Compliance: Yes Side effects from medications: No Review of Systems Acute medical concerns: No Medical Review of Systems: unchanged Mental Status Exam Mental Status Exam Narrative: Patient Appearance: Appropriate Patient Orientation: Person, Place, Time and Situation Level of Consciousness: Appropriate and Alert Patient Behavior: Appropriate, Talkative, Cooperative and Good Eye Contact Mood Description: Depressed and Anxious Affect Description: Flat Patient Cognition Impaired: No Speech Pattern: Spontaneous Speech Memory Description: Episodic Impaired Hallucinations: Auditory Delusions: Paranoid Ideation Perceptual Disturbances: Depersonalization and Derealization Thought Process: Goal Oriented Thought Content: positive for Goal Oriented Depressive Symptoms: Increased Anxiety, Insomnia, Difficulty Sleeping and Difficulty Concentrating Judgement: Fair Diagnostics Vital Signs (24Hr): Vital Signs - 24 hr 09/14/21 19:55 09/15/21 06:00 Temperature 98.1 F Pulse Rate 74 91 Respiratory Rate 18 Blood Pressure 119/72 139/77 Pulse Oximetry 98 Oxygen Delivery Method Room Air BMI result Body Mass Index 21.9 Labs Results: 09/12/21 12:11 09/13/21 07:53 Imaging Radiology Impressions: ITS Impressions Chest X-Ray 09/12/21 14:08 IMPRESSION: Lungs are normal. No acute pulmonary disease. Also, there is no acute osseous abnormality. Medications Medications Current Medications Acetaminophen (Acetaminophen 325 Mg Tablet) 650 mg PO Q6H PRN PRN Reason: Headache/Pain Mild Scale (1-3) Last Admin: 09/14/21 16:43 Dose: 650 mg Al Hydroxide/Mg Hydroxide (Magnesium Hydrox/Alum Hydrox 30 Ml Oral.Susp) 30 ml PO Q6H PRN PRN Reason: Heartburn/Nausea Clonidine HCl (Clonidine Hcl 0.1 Mg Tablet) 0.1 mg PO BID [facility]; Protocol Last Admin: 09/15/21 08:51 Dose: 0.1 mg Cyclobenzaprine HCl (Cyclobenzaprine Hcl 5 Mg Tablet) 5 mg PO TID PRN PRN Reason: muscle spasms Last Admin: 09/15/21 05:34 Dose: 5 mg Hydroxyzine HCl (Hydroxyzine Hcl 25 Mg Tablet) 25 mg PO Q6H PRN PRN Reason: Anxiety Last Admin: 09/12/21 18:46 Dose: 25 mg Lamotrigine (Lamotrigine 100 Mg Tablet) 100 mg PO BID [facility] Last Admin: 09/15/21 08:51 Dose: 100 mg Lorazepam (Lorazepam 0.5 Mg Tablet) 0.5 mg PO DAILY PRN PRN Reason: Anxiety Last Admin: 09/14/21 11:39 Dose: 0.5 mg Lurasidone HCl (Lurasidone Hcl 40 Mg Tablet) 40 mg PO DAILY@1800 [facility] Last Admin: 09/14/21 17:38 Dose: 40 mg Magnesium Hydroxide (Milk Of Magnesia 30 Ml Oral.Susp) 30 ml PO DAILY PRN PRN Reason: Constipation Mirtazapine (Mirtazapine 15 Mg Tablet) 15 mg PO BEDTIME [facility] Last Admin: 09/14/21 19:59 Dose: 15 mg Nicotine (Nicotine 7 Mg Patch.Td24) 7 mg TRANSDERMA DAILY [facility] Last Admin: 09/15/21 08:52 Dose: Not Given Trazodone HCl (Trazodone Hcl 50 Mg Tablet) 50 mg PO BEDTIME PRN PRN Reason: Insomnia Last Admin: 09/14/21 19:59 Dose: 50 mg Allergies Allergies Allergy/AdvReac Type Severity Reaction Status Date / Time cephalexin [From KEFLEX] Allergy Unknown ANAPHYLAXIS Unverified 11/03/19 19:04 Assessment & Plan Assessment & Plan (1) Alcohol use disorder, severe, in sustained remission: Status: Acute Code(s): F10.21 - Alcohol dependence, in remission (2) Schizoaffective disorder, depressive type: Status: Acute Code(s): F25.1 - Schizoaffective disorder, depressive type Plan 40 yo female, hx of schizoaffective disorder, alcohol use disorder, multiple sclerosis with reports of auditory hallucinations, recent suicide attempt and disorganization of thoughts. Pt with co-morbid medical symptoms and concerns. Plan: Full med review with pt Increase Remeron to 15 mg hs Risperdal 0.5 mg daily Clonidine 01 mg bid (pt reports she is taking this at home) Lamictal 100 mg bid (pt reports she is taking this dose at home-just increased with PCP) Mammogram-L breast/chest lump with discomfort MRI-Brain. [place] Raul Cort[place] [facility] [facility] Neuro Dr. Ortiz-order is valid on file-Call to [facility] to book testing-they need to talk with Dr. Ortiz/Insurance-will continue scheduling process on 09/16/21. Pt asks to trial flexeril due to what she describes as muscle spasms in her face, these are not observed, on 0.5 mg of risperdal and no TD noticed. Will discontinue risperdal due to pt reporting lack of benefit and sedation on higher doses, will trial latuda 40 mg. Willing to trial flexeril, as if this helps and gives pt relief the benefits outweigh risks. I spent minutes with the patient and/or on the patient floor today, greater than?50% of which was spent counseling/coordinating care. Patient educated on: diagnosis, medication risk/benefits and therapeutic strategies Reason for contiued inpatient stay Substantial Risk for: harm to self, rapid decompensation and med/psych decompensation
[2021-09-14 19:55] VITALS: BP 119/72; PULSE 74; TEMP 36.7; O2SAT 98
[2021-09-14] MEDS: traZODone HCL 50 MG TABLET PO (19:59)
[2021-09-14] MEDS: Mirtazapine 15 MG TABLET PO (19:59)
[2021-09-15] MEDS: Cyclobenzaprine HCl 5 MG TABLET PO ×3 (05:34→21:36)
[2021-09-15 06:00] VITALS: BP 139/77; PULSE 91; RESP 18
[2021-09-15] MEDS: lamoTRIgine 100 MG TABLET PO ×2 (08:51→21:25)
[2021-09-15] MEDS: cloNIDine HCL 0.1 MG TABLET PO ×2 (08:51→21:25)
--- NOTE | 2021-09-15 10:18 | P.PNPSI_ITS ---
Subjective Subjective Date of Service: 09/15/21 Reason For Visit: Depression Suicide Attempt Subjective Notes: Dowd Warning and Conditional Voluntary Interim History: Patient seen and discussed with team. Patient evaluated today and upon interview pt reports she has noticed continuance of her facial sensations but does feel like flexeril has helped. [place] sedated after taking latuda last night, also says she felt confused and disoriented this morning but will give it more time and monitor. She is tearful. Had a visit with her family, misses them. In the milieu, patient is safe and appropriate in behavior. Denies SI/SIB/HI upon inquiry. Says she feels safe. Medication Compliance: Yes Side effects from medications: No Attending Groups: Yes Review of Systems Acute medical concerns: No Medical Review of Systems: unchanged Mental Status Exam Mental Status Exam Narrative: Patient Appearance: Appropriate Patient Orientation: Person, Place, Time and Situation Level of Consciousness: Appropriate and Alert Patient Behavior: Appropriate, Talkative, Cooperative and Good Eye Contact Mood Description: Depressed and Anxious Affect Description: Flat Patient Cognition Impaired: No Speech Pattern: Spontaneous Speech Memory Description: Episodic Impaired Hallucinations: Auditory Delusions: Paranoid Ideation Perceptual Disturbances: Depersonalization and Derealization Thought Process: Goal Oriented Thought Content: positive for Goal Oriented Depressive Symptoms: Increased Anxiety, Insomnia, Difficulty Sleeping and Difficulty Concentrating Judgement: Fair Diagnostics Vital Signs (24Hr): Vital Signs - 24 hr 09/14/21 19:55 09/15/21 06:00 Temperature 98.1 F Pulse Rate 74 91 Respiratory Rate 18 Blood Pressure 119/72 139/77 Pulse Oximetry 98 Oxygen Delivery Method Room Air BMI result Body Mass Index 21.9 Labs Results: 09/12/21 12:11 09/13/21 07:53 Imaging Radiology Impressions: ITS Impressions Chest X-Ray 09/12/21 14:08 IMPRESSION: Lungs are normal. No acute pulmonary disease. Also, there is no acute osseous abnormality. Medications Medications Current Medications Acetaminophen (Acetaminophen 325 Mg Tablet) 650 mg PO Q6H PRN PRN Reason: Headache/Pain Mild Scale (1-3) Last Admin: 09/14/21 16:43 Dose: 650 mg Al Hydroxide/Mg Hydroxide (Magnesium Hydrox/Alum Hydrox 30 Ml Oral.Susp) 30 ml PO Q6H PRN PRN Reason: Heartburn/Nausea Clonidine HCl (Clonidine Hcl 0.1 Mg Tablet) 0.1 mg PO BID [facility]; Protocol Last Admin: 09/15/21 08:51 Dose: 0.1 mg Cyclobenzaprine HCl (Cyclobenzaprine Hcl 5 Mg Tablet) 5 mg PO TID PRN PRN Reason: muscle spasms Last Admin: 09/15/21 05:34 Dose: 5 mg Hydroxyzine HCl (Hydroxyzine Hcl 25 Mg Tablet) 25 mg PO Q6H PRN PRN Reason: Anxiety Last Admin: 09/12/21 18:46 Dose: 25 mg Lamotrigine (Lamotrigine 100 Mg Tablet) 100 mg PO BID [facility] Last Admin: 09/15/21 08:51 Dose: 100 mg Lorazepam (Lorazepam 0.5 Mg Tablet) 0.5 mg PO DAILY PRN PRN Reason: Anxiety Last Admin: 09/14/21 11:39 Dose: 0.5 mg Lurasidone HCl (Lurasidone Hcl 40 Mg Tablet) 40 mg PO DAILY@1800 [facility] Last Admin: 09/14/21 17:38 Dose: 40 mg Magnesium Hydroxide (Milk Of Magnesia 30 Ml Oral.Susp) 30 ml PO DAILY PRN PRN Reason: Constipation Mirtazapine (Mirtazapine 15 Mg Tablet) 15 mg PO BEDTIME [facility] Last Admin: 09/14/21 19:59 Dose: 15 mg Nicotine (Nicotine 7 Mg Patch.Td24) 7 mg TRANSDERMA DAILY [facility] Last Admin: 09/15/21 08:52 Dose: Not Given Trazodone HCl (Trazodone Hcl 50 Mg Tablet) 50 mg PO BEDTIME PRN PRN Reason: Insomnia Last Admin: 09/14/21 19:59 Dose: 50 mg Allergies Allergies Allergy/AdvReac Type Severity Reaction Status Date / Time cephalexin [From KEFLEX] Allergy Unknown ANAPHYLAXIS Unverified 11/03/19 19:04 Assessment & Plan Assessment & Plan (1) Alcohol use disorder, severe, in sustained remission: Status: Acute Code(s): F10.21 - Alcohol dependence, in remission (2) Schizoaffective disorder, depressive type: Status: Acute Code(s): F25.1 - Schizoaffective disorder, depressive type Plan 40 yo female, hx of schizoaffective disorder, alcohol use disorder, multiple sclerosis with reports of auditory hallucinations, recent suicide attempt and disorganization of thoughts. Pt with co-morbid medical symptoms and concerns. Plan: Full med review with pt Increase Remeron to 15 mg hs Risperdal 0.5 mg daily Clonidine 01 mg bid (pt reports she is taking this at home) Lamictal 100 mg bid (pt reports she is taking this dose at home-just increased with PCP) Mammogram-L breast/chest lump with discomfort MRI-Brain. [place]ul Cortes [place] [facility] [facility] Neuro Dr. Ortiz-order is valid on file-Call to [facility] to book testing-they need to talk with Dr. Ortiz/Insurance-will continue scheduling process on 09/16/21. Pt asks to trial flexeril due to what she describes as muscle spasms in her face, these are not observed, on 0.5 mg of risperdal and no TD noticed. Will discontinue risperdal due to pt reporting lack of benefit and sedation on higher doses, will trial latuda 40 mg. Willing to trial flexeril, as if this helps and gives pt relief the benefits outweigh risks. Will start ativan 0.5 mg PRN in the case that pt's facial sensations are dy stonic and exacerbated by anxiety. I spent minutes with the patient and/or on the patient floor today, greater than?50% of which was spent counseling/coordinating care. Patient educated on: diagnosis, medication risk/benefits and therapeutic strategies Reason for contiued inpatient stay Substantial Risk for: harm to self, rapid decompensation and med/psych decompensation
[2021-09-15] MEDS: LORazepam 0.5 MG TABLET PO (10:43)
[2021-09-15] MEDS: Acetaminophen 325 MG TABLET 650 MG PO (12:17)
[2021-09-15] MEDS: Lurasidone HCl 40 MG TABLET PO (18:51)
[2021-09-15 20:00] VITALS: BP 115/63; PULSE 91; TEMP 36.8; O2SAT 97
[2021-09-15] MEDS: Mirtazapine 15 MG TABLET PO (21:25)
--- NOTE | 2021-09-15 23:42 | PC.NURSE ---
Patient was notified by her family that her son had been bitten by a neighbor's dog. Patient was appropriately concerned and asked if she would be able to see her son in the [facility] ED. scallop cutter provider aware and nursing supervisor brooder farm aware. Patient, nurse staff community health and one director information security took patient down to ED for brief visit. Patient has been calm and cooperative this shift.
[2021-09-16] MEDS: Cyclobenzaprine HCl 5 MG TABLET PO ×2 (05:22→16:39)
[2021-09-16] MEDS: cloNIDine HCL 0.1 MG TABLET PO ×2 (08:06→20:15)
[2021-09-16] MEDS: lamoTRIgine 100 MG TABLET PO ×2 (08:06→20:14)
[2021-09-16 08:08] VITALS: BP 116/60; PULSE 85
[2021-09-16] MEDS: LORazepam 0.5 MG TABLET PO (12:20)
[2021-09-16] MEDS: Acetaminophen 325 MG TABLET 650 MG PO (12:20)
--- NOTE | 2021-09-16 16:39 | P.PNPSI_ITS ---
Subjective Subjective Date of Service: 09/16/21 Reason For Visit: Depression Suicide Attempt Subjective Notes: Conditional Voluntary Healthcare Proxy: No Guardianship: No Medical Problems Affecting Mental Status: Yes (Multiple Sclerosis) Interim History: Tolerating Risperdal change to Latuda from the weekend. Reports Flexorial has been helpful as well. Describes facial sensations today- they feel like my head is swirling Grimace today is more forceful, involuntary Son visited Discussed being doubtful of her abilities, but I am going to groups, doing some crying, and having more belief in myself. Discussed discharge-currently family is away in [place]. Mother is at home. Discussed for the end of the week if feeling improved-she agreed. Medication Compliance: Yes Side effects from medications: No Attending Groups: Yes Review of Systems Acute medical concerns: Yes Multiple Sclerosis Medical Review of Systems: unchanged Review of Systems Psychiatric: Reports anxiety, Reports depression, Reports hopelessness, Reports anhedonia and Reports suicidal ideation Mental Status Exam Mental Status Exam Patient Appearance: Appropriate Patient Orientation: Person, Place, Time and Situation Level of Consciousness: Alert Patient Behavior: Appropriate, Talkative, Cooperative and Good Eye Contact Mood Description: Flat Affect Description: Flat Patient Cognition Impaired: No Ability to Follow Directions: Good Speech Pattern: Clear, Appropriate and Spontaneous Speech Memory Description: Episodic Impaired Hallucinations: None Delusions: Not Present Perceptual Disturbances: Depersonalization and Derealization Thought Process: Rumination Thought Content: positive for [place] and positive for Suicidal Ideation Depressive Symptoms: Diff. Making Decisions, Feelings of Worthlessness, Hopelessness, Thoughts of /Suicide, Low Self Esteem and Difficulty Concentrating Judgement: Fair Diagnostics Vital Signs (24Hr): Vital Signs - 24 hr 09/15/21 20:00 09/16/21 08:08 Temperature 98.3 F Pulse Rate 91 85 Blood Pressure 115/63 116/60 Pulse Oximetry 97 Oxygen Delivery Method Room Air BMI result Body Mass Index 21.9 Labs Results: 09/12/21 12:11 09/13/21 07:53 Imaging Radiology Impressions: ITS Impressions Chest X-Ray 09/12/21 14:08 IMPRESSION: Lungs are normal. No acute pulmonary disease. Also, there is no acute osseous abnormality. Medications Medications Current Medications Acetaminophen (Acetaminophen 325 Mg Tablet) 650 mg PO Q6H PRN PRN Reason: Headache/Pain Mild Scale (1-3) Last Admin: 09/16/21 12:20 Dose: 650 mg Al Hydroxide/Mg Hydroxide (Magnesium Hydrox/Alum Hydrox 30 Ml Oral.Susp) 30 ml PO Q6H PRN PRN Reason: Heartburn/Nausea Clonidine HCl (Clonidine Hcl 0.1 Mg Tablet) 0.1 mg PO BID COUNTS INCLUDE 234 BEDS AT THE [facility]; Protocol Last Admin: 09/16/21 08:06 Dose: 0.1 mg Cyclobenzaprine HCl (Cyclobenzaprine Hcl 5 Mg Tablet) 5 mg PO TID PRN PRN Reason: muscle spasms Last Admin: 09/16/21 05:22 Dose: 5 mg Hydroxyzine HCl (Hydroxyzine Hcl 25 Mg Tablet) 25 mg PO Q6H PRN PRN Reason: Anxiety Last Admin: 09/12/21 18:46 Dose: 25 mg Lamotrigine (Lamotrigine 100 Mg Tablet) 100 mg PO BID COUNTS INCLUDE 234 BEDS AT THE [facility] Last Admin: 09/16/21 08:06 Dose: 100 mg Lorazepam (Lorazepam 0.5 Mg Tablet) 0.5 mg PO BID PRN PRN Reason: Anxiety Last Admin: 09/16/21 12:20 Dose: 0.5 mg Lurasidone HCl (Lurasidone Hcl 40 Mg Tablet) 40 mg PO DAILY@1800 COUNTS INCLUDE 234 BEDS AT THE [facility] Last Admin: 09/15/21 18:51 Dose: 40 mg Magnesium Hydroxide (Milk Of Magnesia 30 Ml Oral.Susp) 30 ml PO DAILY PRN PRN Reason: Constipation Mirtazapine (Mirtazapine 15 Mg Tablet) 15 mg PO BEDTIME COUNTS INCLUDE 234 BEDS AT THE [facility] Last Admin: 09/15/21 21:25 Dose: 15 mg Nicotine (Nicotine 7 Mg Patch.Td24) 7 mg TRANSDERMA DAILY COUNTS INCLUDE 234 BEDS AT THE [facility] Last Admin: 09/16/21 08:06 Dose: Not Given Trazodone HCl (Trazodone Hcl 50 Mg Tablet) 50 mg PO BEDTIME PRN PRN Reason: Insomnia Last Admin: 09/14/21 19:59 Dose: 50 mg Allergies Allergies Allergy/AdvReac Type Severity Reaction Status Date / Time cephalexin [From KEFLEX] Allergy Unknown ANAPHYLAXIS Unverified 11/03/19 19:04 Assessment & Plan Assessment & Plan (1) Alcohol use disorder, severe, in sustained remission: Status: Acute Code(s): F10.21 - Alcohol dependence, in remission (2) Schizoaffective disorder, depressive type: Status: Acute Code(s): F25.1 - Schizoaffective disorder, depressive type Plan 40 yo female, hx of schizoaffective disorder, alcohol use disorder, multiple sclerosis with reports of auditory hallucinations, recent suicide attempt and disorganization of thoughts. Pt with co-morbid medical symptoms and concerns. Plan: Full med review with pt Increase Remeron to 15 mg hs Risperdal 0.5 mg daily Clonidine 0.1 mg bid (pt reports she is taking this at home) Lamictal 100 mg bid (pt reports she is taking this dose at home-just increased with PCP) Mammogram-L breast/chest lump with discomfort MRI-Brain. Denied by Raul Cortes of [facility]. Call to [facility] Neuro Dr. Ortiz-order is valid on file-Call to [facility] to book testing-they need to talk with Dr. Ortiz/Insurance-will continue scheduling process on 09/16/21. 09/16/21- Continue current plan I spent minutes with the patient and/or on the patient floor today, greater than?50% of which was spent counseling/coordinating care. Patient educated on: therapeutic strategies Informed Consent: understands and further education needed Reason for contiued inpatient stay Substantial Risk for: harm to self, inability to function, rapid decompensation and med/psych decompensation
[2021-09-16] MEDS: Lurasidone HCl 40 MG TABLET PO (17:45)
[2021-09-16 20:05] VITALS: BP 123/56; PULSE 90; TEMP 37.1
[2021-09-16] MEDS: Mirtazapine 15 MG TABLET PO (20:14)
[2021-09-16] MEDS: traZODone HCL 50 MG TABLET PO (20:19)
[2021-09-17 07:45] VITALS: BP 129/66; PULSE 84; RESP 16; TEMP 36.6; O2SAT 96
[2021-09-17] MEDS: cloNIDine HCL 0.1 MG TABLET PO ×2 (09:24→20:21)
[2021-09-17] MEDS: lamoTRIgine 100 MG TABLET PO ×2 (09:24→20:22)
[2021-09-17] MEDS: Cyclobenzaprine HCl 5 MG TABLET PO ×2 (09:40→16:40)
[2021-09-17] MEDS: LORazepam 0.5 MG TABLET PO (09:59)
--- NOTE | 2021-09-17 16:58 | P.PNPSI_ITS ---
Subjective Subjective Date of Service: 09/17/21 Reason For Visit: Depression Suicide Attempt Subjective Notes: Conditional Voluntary Healthcare Proxy: No Guardianship: No Medical Problems Affecting Mental Status: Yes (Multiple sclerosis diagnosis) Interim History: Dominique reports she is using milieu and is tolerating medication changes. She discussed discharge and believes she is prepared to leave on 09/18 or 09/19. Calls to [facility] RE MRI-Dr. Ortiz's team reports since pt had an MRI with [facility] recently they will not need to repeat it. [facility] film library called and sent over a copy of MRI results. Call to [facility] who refuse to do ordered mammogram as they report they only work with out patients. Pt to call her PCP to make an appt Medication Compliance: Yes Side effects from medications: No Attending Groups: Yes Review of Systems Multiple sclerosis Medical Review of Systems: unchanged Review of Systems Psychiatric: Reports no additional psychiatric complaints Mental Status Exam Mental Status Exam Patient Appearance: Appropriate Patient Orientation: Person, Place, Time and Situation Level of Consciousness: Alert Patient Behavior: Appropriate, Talkative, Cooperative and Good Eye Contact Mood Description: Flat Affect Description: Flat Patient Cognition Impaired: No Ability to Follow Directions: Good Speech Pattern: Clear, Appropriate and Spontaneous Speech Memory Description: Episodic Impaired Hallucinations: None Delusions: Not Present Perceptual Disturbances: Depersonalization and Derealization Thought Process: Rumination Thought Content: positive for [place] and positive for Suicidal Ideation Depressive Symptoms: Low Self Esteem Judgement: Fair Diagnostics Vital Signs (24Hr): Vital Signs - 24 hr 09/16/21 20:05 09/17/21 07:45 Temperature 98.8 F 97.8 F Pulse Rate 90 84 Respiratory Rate 16 Blood Pressure 123/56 L 129/66 Pulse Oximetry 96 Oxygen Delivery Method Room Air BMI result Body Mass Index 21.9 Labs Results: 09/12/21 12:11 09/13/21 07:53 Imaging Radiology Impressions: ITS Impressions Chest X-Ray 09/12/21 14:08 IMPRESSION: Lungs are normal. No acute pulmonary disease. Also, there is no acute osseous abnormality. Medications Medications Current Medications Acetaminophen (Acetaminophen 325 Mg Tablet) 650 mg PO Q6H PRN PRN Reason: Headache/Pain Mild Scale (1-3) Last Admin: 09/16/21 12:20 Dose: 650 mg Al Hydroxide/Mg Hydroxide (Magnesium Hydrox/Alum Hydrox 30 Ml Oral.Susp) 30 ml PO Q6H PRN PRN Reason: Heartburn/Nausea Clonidine HCl (Clonidine Hcl 0.1 Mg Tablet) 0.1 mg PO BID [facility]; Protocol Last Admin: 09/17/21 09:24 Dose: 0.1 mg Cyclobenzaprine HCl (Cyclobenzaprine Hcl 5 Mg Tablet) 5 mg PO TID PRN PRN Reason: muscle spasms Last Admin: 09/17/21 16:40 Dose: 5 mg Hydroxyzine HCl (Hydroxyzine Hcl 25 Mg Tablet) 25 mg PO Q6H PRN PRN Reason: Anxiety Last Admin: 09/12/21 18:46 Dose: 25 mg Lamotrigine (Lamotrigine 100 Mg Tablet) 100 mg PO BID [facility] Last Admin: 09/17/21 09:24 Dose: 100 mg Lorazepam (Lorazepam 0.5 Mg Tablet) 0.5 mg PO BID PRN PRN Reason: Anxiety Last Admin: 09/17/21 09:59 Dose: 0.5 mg Lurasidone HCl (Lurasidone Hcl 40 Mg Tablet) 40 mg PO DAILY@1800 [facility] Last Admin: 09/16/21 17:45 Dose: 40 mg Magnesium Hydroxide (Milk Of Magnesia 30 Ml Oral.Susp) 30 ml PO DAILY PRN PRN Reason: Constipation Mirtazapine (Mirtazapine 15 Mg Tablet) 15 mg PO BEDTIME [facility] Last Admin: 09/16/21 20:14 Dose: 15 mg Nicotine (Nicotine 7 Mg Patch.Td24) 7 mg TRANSDERMA DAILY [facility] Last Admin: 09/17/21 09:25 Dose: Not Given Trazodone HCl (Trazodone Hcl 50 Mg Tablet) 50 mg PO BEDTIME PRN PRN Reason: Insomnia Last Admin: 09/16/21 20:19 Dose: 50 mg Allergies Allergies Allergy/AdvReac Type Severity Reaction Status Date / Time cephalexin [From KEFLEX] Allergy Unknown ANAPHYLAXIS Unverified 11/03/19 19:04 Assessment & Plan Assessment & Plan (1) Alcohol use disorder, severe, in sustained remission: Status: Acute Code(s): F10.21 - Alcohol dependence, in remission (2) Schizoaffective disorder, depressive type: Status: Acute Code(s): F25.1 - Schizoaffective disorder, depressive type Plan 40 yo female, hx of schizoaffective disorder, alcohol use disorder, multiple sclerosis with reports of auditory hallucinations, recent suicide attempt and d isorganization of thoughts. Pt with co-morbid medical symptoms and concerns. Plan: Full med review with pt Increase Remeron to 15 mg hs Risperdal 0.5 mg daily Clonidine 0.1 mg bid (pt reports she is taking this at home) Lamictal 100 mg bid (pt reports she is taking this dose at home-just increased w ith PCP) Mammogram-L breast/chest lump with discomfort MRI-Brain. Denied by Raul Cortes of [facility]. Call to [facility] Neuro Dr. Ortiz-order is valid on file-Call to [facility] to book testing-they need to talk with Dr. Ortiz/Insurance-will continue scheduling process on 09/16/21. 09/16/21- Continue current plan 09/17/21- Discharge planning for 09/18 or 09/19. Tolerating Latuda which was initiated over the weekend I spent minutes with the patient and/or on the patient floor today, greater than?50% of which was spent counseling/coordinating care. Patient educated on: medication risk/benefits and therapeutic strategies Informed Consent: understands and further education needed Reason for contiued inpatient stay Substantial Risk for: harm to self, inability to function and rapid decompensation
[2021-09-17] MEDS: Lurasidone HCl 40 MG TABLET PO (17:47)
[2021-09-17 20:10] VITALS: BP 111/59; PULSE 100; TEMP 36.9
[2021-09-17] MEDS: Mirtazapine 15 MG TABLET PO (20:21)
[2021-09-17] MEDS: traZODone HCL 50 MG TABLET PO (20:22)
[2021-09-18] MEDS: Cyclobenzaprine HCl 5 MG TABLET PO ×2 (05:27→13:03)
[2021-09-18 08:00] VITALS: BP 117/62; PULSE 89; RESP 16; TEMP 37.2; O2SAT 99
[2021-09-18] MEDS: cloNIDine HCL 0.1 MG TABLET PO (08:09)
[2021-09-18] MEDS: lamoTRIgine 100 MG TABLET PO (08:09)
[2021-09-18] MEDS: LORazepam 0.5 MG TABLET PO (08:13)
[2021-09-18] MEDS: Acetaminophen 325 MG TABLET 650 MG PO (13:03)
[2021-09-18] MEDS: hydrOXYzine HCL 25 MG TABLET PO (14:15)
--- NOTE | 2021-09-18 21:16 | P.DS_ITS ---
DS: Providers Provider Date of Service: 09/18/21 Date of admission: 09/12/21 16:57 Date of discharge: 09/18/21 Primary care physician: Swapna Spaulding CNP Admitting clinician: Samantha Harvey Attending physician on admission: Apollo Goetz Attending physician on discharge: Apollo Goetz Discharging clinician: Samantha Harvey DS: Diagnosis Discharge Diagnosis (1) Alcohol use disorder, severe, in sustained remission: Status: Acute (2) Schizoaffective disorder, depressive type: Status: Acute DS: Medications Discharge Medications Home Medications: Previous Rx's Medication Instructions Recorded clonidine HCl 0.1 mg tablet 0.1 mg PO BID #60 tabs 09/18/21 cyclobenzaprine 5 mg tablet 5 mg PO TID PRN muscle spasms #90 09/18/21 tabs lamotrigine 100 mg tablet 100 mg PO BID #60 tabs 09/18/21 lorazepam 0.5 mg tablet 0.5 mg PO BID PRN Anxiety #14 tabs 09/18/21 lurasidone 40 mg tablet (Latuda) 40 mg PO DAILY@1800 #3 tabs 09/18/21 mirtazapine 15 mg tablet 15 mg PO BEDTIME #30 tabs 09/18/21 nicotine 7 mg/24 hr daily 1 patch topical DAILY #30 ea 09/18/21 transdermal patch Mental Status Exam Mental Status Exam Patient Appearance: Appropriate Patient Orientation: Person, Place, Time and Situation Level of Consciousness: Alert Patient Behavior: Appropriate, Talkative, Cooperative and Good Eye Contact Mood Description: Flat Affect Description: Flat Patient Cognition Impaired: No Ability to Follow Directions: Good Speech Pattern: Clear, Appropriate and Spontaneous Speech Memory Description: Episodic Impaired Hallucinations: None Delusions: Not Present Perceptual Disturbances: Depersonalization and Derealization Thought Process: Rumination Thought Content: positive for [place] Depressive Symptoms: Low Self Esteem Judgement: Fair Data Data Completed and Pending Completed studies during hospitalization [Text1]: 09/12/21 09/12/21 09/12/21 11:31 12:02 12:02 WBC RBC Hgb Hct MCV MCH MCHC RDW Plt Count MPV Immature Gran % (Auto) Neut % (Auto) Lymph % (Auto) [place] % (Auto) Eos % (Auto) Baso % (Auto) Lymph # (Auto) [place] # (Auto) Eos # (Auto) Baso # (Auto) Abs Immat Gran (auto) Absolute Neuts (auto) Absolute Nucleated RBC Nucleated RBC % (auto) Sodium Potassium Chloride Carbon Dioxide Anion Gap BUN Creatinine Estim Creat Clear Calc Estimated GFR Random Glucose Fasting Glucose Calcium Magnesium Total Bilirubin Direct Bilirubin AST ALT Alkaline Phosphatase Troponin I High Sens Total Protein Albumin Triglycerides Cholesterol LDL Cholesterol, Calc HDL Cholesterol Vitamin B12 Folate TSH Free T4 Urine Color YELLOW Urine Appearance CLEAR Urine pH 7.0 Ur Specific [place] 1.010 Urine Protein NEG Urine Glucose (UA) NEG Urine Ketones NEG Urine Blood NEG Urine Nitrite NEG Ur Leukocyte Esterase 1+ H Urine RBC 0-2 Urine WBC 0-2 Ur Squamous Epith Cells 2+ Urine Bacteria TRACE Urine Opiates Screen Not Detected Urine Fentanyl Screen Not Detected Ur Barbiturates Screen Not Detected Ur Phencyclidine Scrn Not Detected Ur Amphetamines Screen Not Detected U Benzodiazepines Scrn Not Detected Urine Cocaine Screen Not Detected U Marijuana (THC) Screen Not Detected Ethyl Alcohol COVID-19 (CLAUDINE) Negative COVID-19 Clin Com See Note 09/12/21 09/12/21 09/12/21 12:11 12:11 12:11 WBC 11.6 H RBC 4.73 Hgb 14.4 Hct 43.0 MCV 90.9 MCH 30.4 MCHC 33.5 RDW 13.5 Plt Count 315 D MPV 10.9 Immature Gran % (Auto) 0.5 H Neut % (Auto) 72.1 Lymph % (Auto) 19.3 L [place] % (Auto) 7.0 Eos % (Auto) 0.5 Baso % (Auto) 0.6 Lymph # (Auto) 2.3 [place] # (Auto) 0.8 Eos # (Auto) 0.1 Baso # (Auto) 0.1 Abs Immat Gran (auto) 0.06 H Absolute Neuts (auto) 8.4 H Absolute Nucleated RBC 0.000 Nucleated RBC % (auto) 0.0 Sodium 131 L Potassium 4.3 Chloride 99 Carbon Dioxide 23 Anion Gap 13 BUN 8 L D Creatinine 0.91 Estim Creat Clear Calc 78.3 Estimated GFR > 60 Random Glucose 77 Fasting Glucose Calcium 9.6 Magnesium 2.2 Total Bilirubin 0.4 Direct Bilirubin 0.2 AST 31 D ALT 53 H Alkaline Phosphatase 66 D Troponin I High Sens < 3.5 Total Protein 7.5 Albumin 4.9 Triglycerides Cholesterol LDL Cholesterol, Calc HDL Cholesterol Vitamin B12 Folate TSH Free T4 Urine Color Urine Appearance Urine pH Ur Specific [place] Urine Protein Urine Glucose (UA) Urine Ketones Urine Blood Urine Nitrite Ur Leukocyte Esterase Urine RBC Urine WBC Ur Squamous Epith Cells Urine Bacteria Urine Opiates Screen Urine Fentanyl Screen Ur Barbiturates Screen Ur Phencyclidine Scrn Ur Amphetamines Screen U Benzodiazepines Scrn Urine Cocaine Screen U Marijuana (THC) Screen Ethyl Alcohol < 10 COVID-19 (CLAUDINE) COVID-19 Clin Com 09/13/21 09/13/21 07:53 07:53 WBC RBC Hgb Hct MCV MCH MCHC RDW Plt Count MPV Immature Gran % (Auto) Neut % (Auto) Lymph % (Auto) [place] % (Auto) Eos % (Auto) Baso % (Auto) Lymph # (Auto) [place] # (Auto) Eos # (Auto) Baso # (Auto) Abs Immat Gran (auto) Absolute Neuts (auto) Absolute Nucleated RBC Nucleated RBC % (auto) Sodium 136 Potassium 4.5 Chloride 100 Carbon Dioxide 27 Anion Gap 14 BUN 12 Creatinine 1.00 Estim Creat Clear Calc 71.2 Estimated GFR > 60 Random Glucose Fasting Glucose 86 Calcium 9.6 Magnesium Total Bilirubin 0.3 Direct Bilirubin AST 25 ALT 47 H Alkaline Phosphatase 69 Troponin I High Sens Total Protein 7.3 Albumin 4.8 Triglycerides 37 Cholesterol 233 LDL Cholesterol, Calc 139 HDL Cholesterol 87 Vitamin B12 800 Folate 16.6 TSH 1.23 Free T4 1.38 Urine Color Urine Appearance Urine pH Ur Specific [place] Urine Protein Urine Glucose (UA) Urine Ketones Urine Blood Urine Nitrite Ur Leukocyte Esterase Urine RBC Urine WBC Ur Squamous Epith Cells Urine Bacteria Urine Opiates Screen Urine Fentanyl Screen Ur Barbiturates Screen Ur Phencyclidine Scrn Ur Amphetamines Screen U Benzodiazepines Scrn Urine Cocaine Screen U Marijuana (THC) Screen Ethyl Alcohol COVID-19 (CLAUDINE) COVID-19 Clin Com 09/12/21 12:13 Urine clean catch - Urine noel top Urine Culture - Final Imaging Diagnostic Imaging Impressions Chest X-Ray 09/12/21 14:08 IMPRESSION: Lungs are normal. No acute pulmonary disease. Also, there is no acute osseous abnormality. DS: Summary Hospital Course Hospital Course: 40 yo female, history of depression, schizoaffective disorder, multiple sclerosis, alcohol use disorder admitted to adult psychiatry with exacerbated symptoms after a trial with partial hospital program. Medication adjustments were made. Latuda replaced Risperdal, Mirtazapine was increased. Pt reported relief and requested to return to [facility] as the milieu was overstimulating for her and she felt she had attended all of the various therapeutic groups and had achieved maximum in patient benefit. She tolerated medicine changes without side effects. She is aware she may call and or return if she has symptom recurrence. Time spent discussing smoking cessation with patient: 3 to 10 minutes Status at Discharge Functional status at discharge: independent ambulation Overall status at discharge: patient is progressing back to baseline Time Spent with Patient Time attestation: Total time spent providing and/or coordinating discharge services: 35 Time spent: Greater than 30 minutes Discharge Plan Discharge Patient Disposition: Home, Self-Care Discharge Diagnosis: Schizoaffective Disorder, depressed type Multiple Sclerosis Referrals: [facility] Hospitalization Program [Other] - 09/26/21 8:00 am (PHP is now in-person at [facility]) Therapy: Yuriy Iyer [Other] - 09/19/21 3:00 pm (This appointment is in- person) Psychiatric Medication Management: Gita Benitez [Other] - 09/26/21 12:40 pm (This is a Telehealth appointment) Swapna Spaulding, SARAH [Primary Care Provider] - 09/27/21 10:30 am (DR. DAPHNE HO IS COVERING HER PCP.) Discharge Medications: New lorazepam 0.5 mg Tablet 0.5 mg PO BID PRN (Reason: Anxiety) Qty: 14 4RF mirtazapine 15 mg Tablet 15 mg PO BEDTIME Qty: 30 0RF cyclobenzaprine 5 mg Tablet 5 mg PO TID PRN (Reason: muscle spasms) Qty: 90 0RF Discontinued lamotrigine 25 mg tablet 2 tab PO BID clonidine HCl 0.1 mg tablet 0.5 - 1 tab PO BID PRN (Reason: Anxiety) mirtazapine 7.5 mg tablet 1 tab PO BEDTIME nicotine 7 mg/24 hr patch 24 hour 1 patch topical DAILY No Action erythromycin 5 mg/gram (0.5 %) Ointment 1 appl OPHTHALMIC-RIGHT TID tobramycin-dexamethasone 0.3-0.1 % Drops,Suspension 1 drp OPHTHALMIC-RIGHT QID aripiprazole [Abilify] 5 mg Tablet 5 mg PO BEDTIME 30 Days Qty: 30 0RF dextroamphetamine-amphetamine 5 mg Capsule,Extended Release 24hr 5 mg PO DAILY 30 Days Qty: 30 0RF Rx Instructions: Partial Fill upon patient request. clonidine HCl 0.1 mg Tablet 0.1 mg PO BID PRN (Reason: anxiety) Qty: 60 0RF Protocol: Hold for SBP< HOLD for SBP < : 90 lamotrigine 100 mg Tablet 100 mg PO BID 30 Days Qty: 60 0RF Discharge Orders: Discharge Order (Routine); Ordered 09/18/21 Ordered By: Samantha Harvey Diet: Advance to usual diet Activity on Discharge: As tolerated Stand Alone Forms: Patient Portal Discharge page, Community Support Care Plan Goals: Mood Stabilization Health Concerns: Schizoaffective Disorder, bipolar type Multiple Sclerosis Plan of Treatment: Attend [facility] Partial Hospital Program Take medications as directed Attend scheduled appointments Call/Return as needed Crisis Team if needed [phone] Assessment: Alert, oriented, ready to be with her family, children, , mother. Non-suicidal, non-psychotic Ready to move forward with her treatment and attend partial hospital program Considering her next career option in her profession. Discharge Date/Time: 09/18/21 16:02
== END 2021-09-18 16:02 | disposition home or self-care (01) | DRG 750 ==
LOC: HO.ED 16:57 → HO.PM5 17:10
PROVIDERS: Physician Assistant; Admitting Provider Psychiatry & Neurology Psychiatry; Emergency Provider Student in an Organized Health Care Education/Training Program; PCP Registered Nurse Rehabilitation; Visit Provider Psychiatry & Neurology Psychiatry
DX: F25.1 Schizoaffective disorder, depressive type (principal); F10.21 Alcohol dependence, in remission; G35 Multiple sclerosis; F17.210 Nicotine dependence, cigarettes, uncomplicated; Z20.822 Contact with and (suspected) exposure to COVID-19; Z91.51 Personal history of suicidal behavior; Z71.6 Tobacco abuse counseling; Z88.1 Allergy status to other antibiotic agents; Z79.899 Other long term (current) drug therapy
CPT/HCPCS: 36415; 71045; 80048; 80053; 80061; 80076; 80307; 81001; 82077; 82607; 82746; 83735; 84439; 84443; 84484; 85025; 87086; 87635; 93005; 99285

== ENCOUNTER 2021-09-27 16:03 | Inpatient (IN) | payer OTHER, SELFPAY ==
[2021-09-27 17:15] VITALS: BP 121/75; PULSE 78; RESP 16; TEMP 36.8; O2SAT 97; BMI 20.2
--- NOTE | 2021-09-27 17:21 | ECG_ITS ---
Test Reason : med clear Blood Pressure : / mmHG Vent. Rate : 082 BPM Atrial Rate : 082 BPM P-R Int : 140 ms QRS Dur : 068 ms QT Int : 374 ms P-R-T Axes : 072 070 057 degrees QTc Int : 436 ms Normal sinus rhythm Normal ECG When compared with ECG of 12-SEP-2021 12:09, No significant change was found Referred By: Isaac Thompson Electronically Signed By:RUDY JACKSON
[2021-09-27 17:58] LABS: MANUAL DIFF FLAG NO
[2021-09-27 18:05] LABS: Appearance Urine HAZY; Color Urine YELLOW; Glucose Urine UA NEG (NEG); Leukocyte Esterase Urine TRACE (NEG); Nitrite Urine NEG (NEG); Specific Gravity - Urine 1.025 (1.005-1.025); UACC Culture Trigger NO; Urine Blood 3+ (NEG); Urine Ketones 5 MG/DL (NEG); Urine Protein NEG (NEG-TRACE)
[2021-09-27 18:11] LABS: UPreg QC Valid YES; Urine Pregnancy NEGATIVE (NEGATIVE)
[2021-09-27 18:12] LABS: RBC Urine TNTC /HPF (0); Squamous Epithelial Cell Urine 1+ /LPF
[2021-09-27 18:13] LABS: Bacteria Urine TRACE /LPF
[2021-09-27 18:15] LABS: COVID-19 Test Negative (Negative)
[2021-09-27 18:18] LABS: Basophils Absolute Auto 0.1 X10*3/uL (0.0-0.2); Basophils Percent Auto 0.8 % (0-2); Eosinophils Absolute Auto 0.1 X10*3/uL (0.0-0.4); Eosinophils Percent Auto 1.3 % (0-4); Hematocrit 35.6 % (37.0-47.0); Hemoglobin 11.9 g/dl (12.0-16.0); Imm Gran Abs Auto 0.05 X10*3/uL (0.00-0.03); Imm Gran Pct Auto 0.6 % (0.0-0.4); Lymphocytes Percent Auto 24.1 % (20-40); Mean Corpuscular HGB Conc 33.4 g/dl (31.0-35.0); Mean Corpuscular Hemoglobin 30.7 pg (27.0-33.0); Mean Corpuscular Volume 91.8 fL (80.0-98.0); Monocytes Absolute Auto 0.5 X10*3/uL (0.1-1.2); Neutrophils Absolute Auto 5.6 x10*3/uL (2.0-8.3); Neutrophils Percent Auto 67.2 % (45-73); Platelet Count 214 X10*3/uL (160-400); Red Blood Count 3.88 X10*6/uL (4.20-5.50); Red Cell Distribution Width 13.6 % (11.0-16.0); White Blood Count 8.4 X10*3/uL (4.8-10.8)
[2021-09-27 18:20] LABS: Anion Gap 17 (12-20); Blood Urea Nitrogen 12 mg/dL (9-16); Calcium 9.4 mg/dL (8.4-10.2); Carbon Dioxide 24 mmol/L (22-29); Chloride 102 mmol/L (96-108); Creatinine Clr Calc Pharmacy 56.4; Estimated Glomerular Filt Rate 49; Glucose Random 76 mg/dL (60-115); Magnesium 2.1 mg/dL (1.6-2.6); Potassium 4.1 mmol/L (3.3-5.1); Sodium 139 mmol/L (135-145)
[2021-09-27 18:22] LABS: Amphetamine Screen Urine Not Detected (Not Detect); Barbiturates, Urine Not Detected (Not Detect); Benzodiazepines Screen Urine Not Detected (Not Detect); Cannabinoid Screen Urine Not Detected (Not Detect); Cocaine Screen Urine Not Detected (Not Detect); Fentanyl, urine Not Detected (Not Detect); Opiate Screen Urine Not Detected (Not Detect); Phencyclidine Screen Urine Not Detected (Not Detect)
[2021-09-27 18:27] LABS: HCG Quantitative < 2 mIU/mL
--- NOTE | 2021-09-27 19:50 | ED_ITS ---
HPI - Psych General Chief Complaint: Psychiatric Symptoms <KAELA Garcia - Last Filed: 09/27/21 20:30> Stated Complaint: behavioral eval. <KAELA Garcia Last Filed: 09/27/21 20:30> Time Seen by Provider: 09/27/21 17:21 <KAELA Garcia Last Filed: 09/27/21 20:30> Source: patient and family (Mother at bedside) <KAELA Garcia Last Filed: 09/27/21 20:30> Mode of arrival: ambulatory <KAELA Garcia Last Filed: 09/27/21 20:30> Limitations: no limitations <KAELA Garcia Last Filed: 09/27/21 20:30> History of Present Illness HPI Narrative: 40-year-old female with a past medical history of multiple sclerosis, anxiety disorder, depression, schizoaffective disorder and alcohol use disorder presenting to the ED with mother at bedside with complaints of disorganized thoughts over the past few days. Reports that she was also seen by her ophtha lmologist and they told her she had a stye and placed on erythromycin and Bactrim that she is taking as prescribed. Reports that they reported that she should not tried a I and D the abscess due to it is already draining and that she should continue warm compresses. She denies any SI/HI/auditory v isualizations or thoughts of self injury reports she feels like she might need to be admitted for psychiatric care for depression and schizoaffective disorder. She denies any recent alcohol or drug usage. She denies any fevers, chills, neck pain/stiffness, trouble swallowing or breathing, chest pain or shortness of breath, dyspnea on exertion, orthopnea, palpitations, paresthesias, nausea/vomiting/diarrhea constipation, black or bloody stools, dysuria, abnormal vaginal discharge, recent travel or sick contacts, cough sore throat or any other symptoms complaints or concerns at this time. <KAELA Garcia Last Filed: 09/27/21 20:30> MD complaint: feels depressed and anxiety <KAELA Garcia Last Filed: 09/27/21 20:30> Onset (ago): day(s) <KAELA Garcia Last Filed: 09/27/21 20:30> Duration: constant and getting worse <KAELA Garcia - Last Filed: 09/27/21 20:30> History of same: Yes <KAELA Garcia - Last Filed: 09/27/21 20:30> Relieving factors: none <KAELA Garcia - Last Filed: 09/27/21 20:30> Exacerbating factors: none <KAELA Garcia Last Filed: 09/27/21 20:30> Associated psychiatric symptoms: depression, suicidal ideation and racing thoughts <KAELA Garcia - Last Filed: 09/27/21 20:30> Associated symptoms: denies other symptoms <KAELA Garcia Last Filed: 09/27/21 20:30> Treatments prior to arrival: none <KAELA Garcia Last Filed: 09/27/21 20:30> If self harm: admits thoughts of self harm (No plan in place) <KAELA Garcia - Last Filed: 09/27/21 20:30> Related Data Home Medications: Home Medications Medication Instructions Recorded Confirmed erythromycin 5 mg/gram (0.5 %) eye 1 appl ophthalmic-Right TID 09/27/21 09/27/21 ointment tobramycin 0.3 %-dexamethasone 0.1 1 drp ophthalmic-Right QID 09/27/21 09/27/21 % eye drops,suspension Previous Rx's Medication Instructions Recorded clonidine HCl 0.1 mg tablet 0.1 mg PO BID #60 tabs 09/18/21 cyclobenzaprine 5 mg tablet 5 mg PO TID PRN muscle spasms #90 09/18/21 tabs lamotrigine 100 mg tablet 100 mg PO BID #60 tabs 09/18/21 lorazepam 0.5 mg tablet 0.5 mg PO BID PRN Anxiety #14 tabs 09/18/21 mirtazapine 15 mg tablet 15 mg PO BEDTIME #30 tabs 09/18/21 <KAELA Garcia - Last Filed: 09/27/21 20:30> Allergies/Adverse Reactions: Allergies Allergy/AdvReac Type Severity Reaction Status Date / Time cephalexin [From KEFLEX] Allergy Unknown ANAPHYLAXIS Unverified 11/03/19 19:04 <KAELA Garcia Last Filed: 09/27/21 20:30> Review of Systems Review of Systems: Constitutional : No Fever, No Chills ENT/Mouth : No Ear Pain, No Nasal Congestion, No sore throat Eyes: + right upper eyelid swelling with stye and preseptal cellulitis, no orbital cellulitis, No Eye Pain, No Swelling, No Redness Cardiovascular : No Chest Pain, No SOB Respiratory : No Cough, No Sputum, No Dyspnea Gastrointestinal : No ingestions, No Nausea, No Vomiting, No Diarrhea, No Hematochezia, No Melena Genitourinary : No Dysuria, No Urinary Frequency, No Hematuria Musculoskeletal : No Myalgias Skin : No Skin Lesions, No rash Neuro : No Weakness, No Numbness, No Paresthesias, No Dizziness, No Headache Psych : + Anxiety, + Depression, No SI, No thoughts of self injury, No HI, No AVH, Heme/Lymph: No Lymphadenopathy Endocrine : No Polyuria, No Polydipsia <KAELA Garcia Last Filed: 09/27/21 20:30> Yes all other systems are reviewed and are negative <KAELA Garcia - Last Filed: 09/27/21 20:30> [facility] Past Medical History Attestation statement: The following information was validated with the patient. <KAELA Garcia - Last Filed: 09/27/21 20:30> Source: old records reviewed and nursing notes reviewed <KAELA Garcia - Last Filed: 09/27/21 20:30> Medical History: Medical History Multiple sclerosis <KAELA Garcia - Last Filed: 09/27/21 20:30> Social History Social History: Social History Household Members: Family Household Members Other:: Biological mother Housing: House Do you presently have visiting nurse or other home services: No Patient Tobacco Use Status: Current everyday Tobacco user Tobacco use type: Cigarette Cigarette Packs Per Day: 0.5 Cigarettes Per Day: 10.0 Years Smoked: 10 years e-Cigarette/Vaping Use: Never Used Second Hand Smoke Exposure: No Advance Directives: No Advance Directives Information Provided: No Healthcare Proxy: No Guardian: No service: No Sexual orientation: Did not discuss <KAELA Garcia - Last Filed: 09/27/21 20:30> Physical Exam Vital Signs: Vital Signs: Last Vital Signs Temp 97.7 F 09/28/21 21:58 Pulse 81 09/28/21 21:58 Resp 18 09/28/21 21:58 BP 105/62 09/28/21 21:58 Pulse Ox 99 09/28/21 21:58 O2 Del Method 09/28/21 21:58 BMI result Body Mass Index 20.2 vital signs have been reviewed as normal and appeared to be correct. Blood pressure normal. Heart rate normal. Respiration rate normal. Temperature normal. Oxygen saturation normal. <KAELA Garcia - Last Filed: 09/27/21 20:30> Vital Signs: Last Vital Signs Temp 97.7 F 09/28/21 21:58 Pulse 81 09/28/21 21:58 Resp 18 09/28/21 21:58 BP 105/62 09/28/21 21:58 Pulse Ox 99 09/28/21 21:58 O2 Del Method 09/28/21 21:58 BMI result Body Mass Index 20.2 <KAELA Fenton - Last Filed: 09/28/21 11:54> Vital Signs: Last Vital Signs Temp 97.7 F 09/28/21 21:58 Pulse 81 09/28/21 21:58 Resp 18 09/28/21 21:58 BP 105/62 09/28/21 21:58 Pulse Ox 99 09/28/21 21:58 O2 Del Method 09/28/21 21:58 BMI result Body Mass Index 20.2 <Itzel Leary MD - Last Filed: 09/28/21 15:38> Vital Signs: Last Vital Signs Temp 97.7 F 09/28/21 21:58 Pulse 81 09/28/21 21:58 Resp 18 09/28/21 21:58 BP 105/62 09/28/21 21:58 Pulse Ox 99 09/28/21 21:58 O2 Del Method 09/28/21 21:58 BMI result Body Mass Index 20.2 <Sherri Jacobs MD - Last Filed: 09/29/21 04:27> Appearance: Alert. Oriented X3. No acute distress. Head: Normal external exam. Normocephalic. Atraumatic. Eyes: PERRLA. EOMI. Conjunctiva and sclera normal. Left eyelids within normal limits. Right upper eyelid with a large thigh that is now draining with preseptal cellulitis not consistent with orbital cellulitis. ENT: EAC normal. TM's Normal. Pharynx normal. Uvula midline. Moist mucous membranes. No trismus noted. No drooling noted. No muffled voice noted. Neck: Normal inspection. Neck supple. FROM. No adenopathy. Thyroid Normal. No meningeal signs. No neck mass noted. CVS: Normal heart rate and rhythm. Heart sound normal. No murmurs noted. Pulses normal throughout. Respiratory: No respiratory distress. Painless inspiration. Breath sounds normal. No wheezes/rales/rhonchi noted. Chest nontender. No accessory muscle usage noted or decreased air movement noted. Abdomen: Soft and nontender. Bowel sounds normal in all 4 quadrants. No distention noted. No organomegaly noted. No visible injury noted. Back: No CVA tenderness. Full range of motion noted. Skin: Skin warm and dry. Normal skin color. Normal skin turgor. No rashes/lesions/lacerations noted. Extremities: No lower extremity edema. Extremities exhibit normal range of motion. Extremities nontender. Neuro: Oriented X 3. No motor deficit. No sensory deficit. Reflexes normal. CN's II-XII intact bilaterally? Psych: Appearance grossly normal, well-kept, mental status normal, speech and movement normal, speech clear, normal affect. Is cooperative. Normal thought process. Normal thought content. Normal good insight. Judgment good. <KAELA Garcia - Last Filed: 09/27/21 20:30> Course Course Course Narrative: 20:26 - 40-year-old female with a past medical history of multiple sclerosis, anxiety disorder, depression, schizoaffective disorder and alcohol use disorder presenting to the ED with mother at bedside with complaints of disorganized thoughts over the past few days. Reports that she was also seen by her cat and dog bather and they told her she had a stye and placed on erythromycin and Bactrim that she is taking as prescribed. Reports that they reported that she should not tried a I and D the abscess due to it is already draining and that she should continue warm compresses. She denies any SI/HI/auditory visualizations or thoughts of self injury reports she feels like she might need to be admitted for psychiatric care for depression and schizoaffective disorder. Labs reviewed patient with an H&H of 11.9/35.6 although she patient reports she is currently on her menstrual period and is not bleeding rectally. Otherwise all other labs are within normal limits. Serum quant negative for . UA revealed blood and leukocytes patient most likely UTI although she is already on Bactrim for her stye therefore will await urine culture. Patient was evaluated by the care team and patient will be an ADY follow-up tomorrow morning. reports that she is discharged tomorrow he will pick her up and bring her home as she denies any SI/HI/auditory visualizations or thoughts of self injury. At this time she is placed in Physician observation Will continue to monitor until then. <KAELA Garcia - Last Filed: 09/27/21 20:30> Reevaluation(s) Reevaluation #1: 09/28/21-- physician observation continued. labs reviewed. Plan for ADY f/u this morning, no complaints overnight <KAELA Fenton - Last Filed: 09/28/21 11:54> Time: 11:53 <KALEA Fenton - Last Filed: 09/28/21 11:54> Reevaluation #2: Seen by care team and recommendation is for inpatient bed search. <Itzel Leary MD - Last Filed: 09/28/21 15:38> Time: 15:37 <Itzel Leary MD - Last Filed: 09/28/21 15:38> Time: 04:26 <Sherri Jacobs MD - Last Filed: 09/29/21 04:27> Consultations Consultation #1: No events overnight, vitals stable. The care team continues the bed search. Physician observation continues <Sherri Jacobs MD - Last Filed: 09/29/21 04:27> MDM - Psych Medical Records Attestation: I reviewed the patient's medical records. <KAELA Garcia - Last Filed: 09/27/21 20:30> Lab Data Attestation: I reviewed the patient's lab results. <KAELA Garcia - Last Filed: 09/27/21 20:30> Result diagrams: : 09/27/21 17:52 09/27/21 17:52 <KAELA Garcia - Last Filed: 09/27/21 20:30> Labs: Lab Results 09/27/21 09/27/21 09/27/21 Range/Units 17:40 17:40 17:40 WBC (4.8-10.8) X10*3/uL RBC (4.20-5.50) X10*6/uL Hgb (12.0-16.0) g/dl Hct (37.0-47.0) % MCV (80.0-98.0) fL MCH (27.0-33.0) pg MCHC (31.0-35.0) g/dl RDW (11.0-16.0) % Plt Count (160-400) X10*3/uL MPV (9.4-12.3) fL Immature Gran % (Auto) (0.0-0.4) % Neut % (Auto) (45-73) % Lymph % (Auto) (20-40) % Evangeline % (Auto) (2-11) % Eos % (Auto) (0-4) % Baso % (Auto) (0-2) % Lymph # (Auto) (1.2-4.9) X10*3/uL Evangeline # (Auto) (0.1-1.2) X10*3/uL Eos # (Auto) (0.0-0.4) X10*3/uL Baso # (Auto) (0.0-0.2) X10*3/uL Abs Immat Gran (auto) (0.00-0.03) X10*3/uL Absolute Neuts (auto) (2.0-8.3) x10*3/uL Absolute Nucleated RBC (0.0-0.012) X10*3/uL Nucleated RBC % (auto) (0.0-0.2) /100WBC Sodium (135-145) mmol/L Potassium (3.3-5.1) mmol/L Chloride (96-108) mmol/L Carbon Dioxide (22-29) mmol/L Anion Gap (12-20) BUN (9-16) mg/dL Creatinine (0.5-1.4) mg/dL Estim Creat Clear Calc Estimated GFR Random Glucose (60-115) mg/dL Calcium (8.4-10.2) mg/dL Magnesium (1.6-2.6) mg/dL Beta HCG, Quant mIU/mL Urine Color YELLOW Urine Appearance HAZY Urine pH 6.0 (5.0-8.0) Ur Specific [place] 1.025 (1.005-1.025) Urine Protein NEG (NEG-TRACE) MG/DL Urine Glucose (UA) NEG (NEG) MG/DL Urine Ketones 5 (NEG) MG/DL Urine Blood 3+ H (NEG) Urine Nitrite NEG (NEG) Ur Leukocyte Esterase TRACE H (NEG) Urine RBC TNTC H (0) /HPF Urine WBC 1-4 (0-4) /HPF Ur Squamous Epith Cells 1+ /LPF Urine Bacteria TRACE /LPF Urine Test NEGATIVE (NEGATIVE) Urine Opiates Screen Not Detected (Not Detect) Urine Fentanyl Screen Not Detected (Not Detect) Ur Barbiturates Screen Not Detected (Not Detect) Ur Phencyclidine Scrn Not Detected (Not Detect) Ur Amphetamines Screen Not Detected (Not Detect) U Benzodiazepines Scrn Not Detected (Not Detect) Urine Cocaine Screen Not Detected (Not Detect) U Marijuana (THC) Screen Not Detected (Not Detect) COVID-19 (CLAUDINE) (Negative) COVID-19 Clin Com 09/27/21 09/27/21 09/27/21 Range/Units 17:41 17:52 17:52 WBC 8.4 (4.8-10.8) X10*3/uL RBC 3.88 L (4.20-5.50) X10*6/uL Hgb 11.9 L (12.0-16.0) g/dl Hct 35.6 L (37.0-47.0) % MCV 91.8 (80.0-98.0) fL MCH 30.7 (27.0-33.0) pg MCHC 33.4 (31.0-35.0) g/dl RDW 13.6 (11.0-16.0) % Plt Count 214 D (160-400) X10*3/uL MPV 12.0 (9.4-12.3) fL Immature Gran % (Auto) 0.6 H (0.0-0.4) % Neut % (Auto) 67.2 (45-73) % Lymph % (Auto) 24.1 (20-40) % Evangeline % (Auto) 6.0 (2-11) % Eos % (Auto) 1.3 (0-4) % Baso % (Auto) 0.8 (0-2) % Lymph # (Auto) 2.0 (1.2-4.9) X10*3/uL Evangeline # (Auto) 0.5 (0.1-1.2) X10*3/uL Eos # (Auto) 0.1 (0.0-0.4) X10*3/uL Baso # (Auto) 0.1 (0.0-0.2) X10*3/uL Abs Immat Gran (auto) 0.05 H (0.00-0.03) X10*3/uL Absolute Neuts (auto) 5.6 (2.0-8.3) x10*3/uL Absolute Nucleated RBC 0.000 (0.0-0.012) X10*3/uL Nucleated RBC % (auto) 0.0 (0.0-0.2) /100WBC Sodium 139 (135-145) mmol/L Potassium 4.1 (3.3-5.1) mmol/L Chloride 102 (96-108) mmol/L Carbon Dioxide 24 (22-29) mmol/L Anion Gap 17 (12-20) BUN 12 (9-16) mg/dL Creatinine 1.20 (0.5-1.4) mg/dL Estim Creat Clear Calc 56.4 Estimated GFR 49 Random Glucose 76 (60-115) mg/dL Calcium 9.4 (8.4-10.2) mg/dL Magnesium 2.1 (1.6-2.6) mg/dL Beta HCG, Quant mIU/mL Urine Color Urine Appearance Urine pH (5.0-8.0) Ur Specific [place] (1.005-1.025) Urine Protein (NEG-TRACE) MG/DL Urine Glucose (UA) (NEG) MG/DL Urine Ketones (NEG) MG/DL Urine Blood (NEG) Urine Nitrite (NEG) Ur Leukocyte Esterase (NEG) Urine RBC (0) /HPF Urine WBC (0-4) /HPF Ur Squamous Epith Cells /LPF Urine Bacteria /LPF Urine Test (NEGATIVE) Urine Opiates Screen (Not Detect) Urine Fentanyl Screen (Not Detect) Ur Barbiturates Screen (Not Detect) Ur Phencyclidine Scrn (Not Detect) Ur Amphetamines Screen (Not Detect) U Benzodiazepines Scrn (Not Detect) Urine Cocaine Screen (Not Detect) U Marijuana (THC) Screen (Not Detect) COVID-19 (CLAUDINE) Negative (Negative) COVID-19 Clin Com See Note 09/27/21 Range/Units 17:52 WBC (4.8-10.8) X10*3/uL RBC (4.20-5.50) X10*6/uL Hgb (12.0-16.0) g/dl Hct (37.0-47.0) % MCV (80.0-98.0) fL MCH (27.0-33.0) pg MCHC (31.0-35.0) g/dl RDW (11.0-16.0) % Plt Count (160-400) X10*3/uL MPV (9.4-12.3) fL Immature Gran % (Auto) (0.0-0.4) % Neut % (Auto) (45-73) % Lymph % (Auto) (20-40) % Evangeline % (Auto) (2-11) % Eos % (Auto) (0-4) % Baso % (Auto) (0-2) % Lymph # (Auto) (1.2-4.9) X10*3/uL Ev[place]eline # (Auto) (0.1-1.2) X10*3/uL Eos # (Auto) (0.0-0.4) X10*3/uL Baso # (Auto) (0.0-0.2) X10*3/uL Abs Immat Gran (auto) (0.00-0.03) X10*3/uL Absolute Neuts (auto) (2.0-8.3) x10*3/uL Absolute Nucleated RBC (0.0-0.012) X10*3/uL Nucleated RBC % (auto) (0.0-0.2) /100WBC Sodium (135-145) mmol/L Potassium (3.3-5.1) mmol/L Chloride (96-108) mmol/L Carbon Dioxide (22-29) mmol/L Anion Gap (12-20) BUN (9-16) mg/dL Creatinine (0.5-1.4) mg/dL Estim Creat Clear Calc Estimated GFR Random Glucose (60-115) mg/dL Calcium (8.4-10.2) mg/dL Magnesium (1.6-2.6) mg/dL Beta HCG, Quant < 2 mIU/mL Urine Color Urine Appearance Urine pH (5.0-8.0) Ur Specific [place] (1.005-1.025) Urine Protein (NEG-TRACE) MG/DL Urine Glucose (UA) (NEG) MG/DL Urine Ketones (NEG) MG/DL Urine Blood (NEG) Urine Nitrite (NEG) Ur Leukocyte Esterase (NEG) Urine RBC (0) /HPF Urine WBC (0-4) /HPF Ur Squamous Epith Cells /LPF Urine Bacteria /LPF Urine Test (NEGATIVE) Urine Opiates Screen (Not Detect) Urine Fentanyl Screen (Not Detect) Ur Barbiturates Screen (Not Detect) Ur Phencyclidine Scrn (Not Detect) Ur Amphetamines Screen (Not Detect) U Benzodiazepines Scrn (Not Detect) Urine Cocaine Screen (Not Detect) U Marijuana (THC) Screen (Not Detect) COVID-19 (CLAUDINE) (Negative) COVID-19 Clin Com <KAELA Garcia - Last Filed: 09/27/21 20:30> Lab Results 09/27/21 09/27/21 09/27/21 Range/Units 17:40 17:40 17:40 WBC (4.8-10.8) X10*3/uL RBC (4.20-5.50) X10*6/uL Hgb (12.0-16.0) g/dl Hct (37.0-47.0) % MCV (80.0-98.0) fL MCH (27.0-33.0) pg MCHC (31.0-35.0) g/dl RDW (11.0-16.0) % Plt Count (160-400) X10*3/uL MPV (9.4-12.3) fL Immature Gran % (Auto) (0.0-0.4) % Neut % (Auto) (45-73) % Lymph % (Auto) (20-40) % Evangeline % (Auto) (2-11) % Eos % (Auto) (0-4) % Baso % (Auto) (0-2) % Lymph # (Auto) (1.2-4.9) X10*3/uL Ev[place]eline # (Auto) (0.1-1.2) X10*3/uL Eos # (Auto) (0.0-0.4) X10*3/uL Baso # (Auto) (0.0-0.2) X10*3/uL Abs Immat Gran (auto) (0.00-0.03) X10*3/uL Absolute Neuts (auto) (2.0-8.3) x10*3/uL Absolute Nucleated RBC (0.0-0.012) X10*3/uL Nucleated RBC % (auto) (0.0-0.2) /100WBC Sodium (135-145) mmol/L Potassium (3.3-5.1) mmol/L Chloride (96-108) mmol/L Carbon Dioxide (22-29) mmol/L Anion Gap (12-20) BUN (9-16) mg/dL Creatinine (0.5-1.4) mg/dL Estim Creat Clear Calc Estimated GFR Random Glucose (60-115) mg/dL Calcium (8.4-10.2) mg/dL Magnesium (1.6-2.6) mg/dL Beta HCG, Quant mIU/mL Urine Color YELLOW Urine Appearance HAZY Urine pH 6.0 (5.0-8.0) Ur Specific [place] 1.025 (1.005-1.025) Urine Protein NEG (NEG-TRACE) MG/DL Urine Glucose (UA) NEG (NEG) MG/DL Urine Ketones 5 (NEG) MG/DL Urine Blood 3+ H (NEG) Urine Nitrite NEG (NEG) Ur Leukocyte Esterase TRACE H (NEG) Urine RBC TNTC H (0) /HPF Urine WBC 1-4 (0-4) /HPF Ur Squamous Epith Cells 1+ /LPF Urine Bacteria TRACE /LPF Urine Test NEGATIVE (NEGATIVE) Urine Opiates Screen Not Detected (Not Detect) Urine Fentanyl Screen Not Detected (Not Detect) Ur Barbiturates Screen Not Detected (Not Detect) Ur Phencyclidine Scrn Not Detected (Not Detect) Ur Amphetamines Screen Not Detected (Not Detect) U Benzodiazepines Scrn Not Detected (Not Detect) Urine Cocaine Screen Not Detected (Not Detect) U Marijuana (THC) Screen Not Detected (Not Detect) COVID-19 (CLAUDINE) (Negative) COVID-19 Clin Com 09/27/21 09/27/21 09/27/21 Range/Units 17:41 17:52 17:52 WBC 8.4 (4.8-10.8) X10*3/uL RBC 3.88 L (4.20-5.50) X10*6/uL Hgb 11.9 L (12.0-16.0) g/dl Hct 35.6 L (37.0-47.0) % MCV 91.8 (80.0-98.0) fL MCH 30.7 (27.0-33.0) pg MCHC 33.4 (31.0-35.0) g/dl RDW 13.6 (11.0-16.0) % Plt Count 214 D (160-400) X10*3/uL MPV 12.0 (9.4-12.3) fL Immature Gran % (Auto) 0.6 H (0.0-0.4) % Neut % (Auto) 67.2 (45-73) % Lymph % (Auto) 24.1 (20-40) % Evangeline % (Auto) 6.0 (2-11) % Eos % (Auto) 1.3 (0-4) % Baso % (Auto) 0.8 (0-2) % Lymph # (Auto) 2.0 (1.2-4.9) X10*3/uL Evangeline # (Auto) 0.5 (0.1-1.2) X10*3/uL Eos # (Auto) 0.1 (0.0-0.4) X10*3/uL Baso # (Auto) 0.1 (0.0-0.2) X10*3/uL Abs Immat Gran (auto) 0.05 H (0.00-0.03) X10*3/uL Absolute Neuts (auto) 5.6 (2.0-8.3) x10*3/uL Absolute Nucleated RBC 0.000 (0.0-0.012) X10*3/uL Nucleated RBC % (auto) 0.0 (0.0-0.2) /100WBC Sodium 139 (135-145) mmol/L Potassium 4.1 (3.3-5.1) mmol/L Chloride 102 (96-108) mmol/L Carbon Dioxide 24 (22-29) mmol/L Anion Gap 17 (12-20) BUN 12 (9-16) mg/dL Creatinine 1.20 (0.5-1.4) mg/dL Estim Creat Clear Calc 56.4 Estimated GFR 49 Random Glucose 76 (60-115) mg/dL Calcium 9.4 (8.4-10.2) mg/dL Magnesium 2.1 (1.6-2.6) mg/dL Beta HCG, Quant mIU/mL Urine Color Urine Appearance Urine pH (5.0-8.0) Ur Specific [place] (1.005-1.025) Urine Protein (NEG-TRACE) MG/DL Urine Glucose (UA) (NEG) MG/DL Urine Ketones (NEG) MG/DL Urine Blood (NEG) Urine Nitrite (NEG) Ur Leukocyte Esterase (NEG) Urine RBC (0) /HPF Urine WBC (0-4) /HPF Ur Squamous Epith Cells /LPF Urine Bacteria /LPF Urine Test (NEGATIVE) Urine Opiates Screen (Not Detect) Urine Fentanyl Screen (Not Detect) Ur Barbiturates Screen (Not Detect) Ur Phencyclidine Scrn (Not Detect) Ur Amphetamines Screen (Not Detect) U Benzodiazepines Scrn (Not Detect) Urine Cocaine Screen (Not Detect) U Marijuana (THC) Screen (Not Detect) COVID-19 (CLAUDINE) Negative (Negative) COVID-19 Clin Com See Note 09/27/21 Range/Units 17:52 WBC (4.8-10.8) X10*3/uL RBC (4.20-5.50) X10*6/uL Hgb (12.0-16.0) g/dl Hct (37.0-47.0) % MCV (80.0-98.0) fL MCH (27.0-33.0) pg MCHC (31.0-35.0) g/dl RDW (11.0-16.0) % Plt Count (160-400) X10*3/uL MPV (9.4-12.3) fL Immature Gran % (Auto) (0.0-0.4) % Neut % (Auto) (45-73) % Lymph % (Auto) (20-40) % Evangeline % (Auto) (2-11) % Eos % (Auto) (0-4) % Baso % (Auto) (0-2) % Lymph # (Auto) (1.2-4.9) X10*3/uL [place] # (Auto) (0.1-1.2) X10*3/uL Eos # (Auto) (0.0-0.4) X10*3/uL Baso # (Auto) (0.0-0.2) X10*3/uL Abs Immat Gran (auto) (0.00-0.03) X10*3/uL Absolute Neuts (auto) (2.0-8.3) x10*3/uL Absolute Nucleated RBC (0.0-0.012) X10*3/uL Nucleated RBC % (auto) (0.0-0.2) /100WBC Sodium (135-145) mmol/L Potassium (3.3-5.1) mmol/L Chloride (96-108) mmol/L Carbon Dioxide (22-29) mmol/L Anion Gap (12-20) BUN (9-16) mg/dL Creatinine (0.5-1.4) mg/dL Estim Creat Clear Calc Estimated GFR Random Glucose (60-115) mg/dL Calcium (8.4-10.2) mg/dL Magnesium (1.6-2.6) mg/dL Beta HCG, Quant < 2 mIU/mL Urine Color Urine Appearance Urine pH (5.0-8.0) Ur Specific [place] (1.005-1.025) Urine Protein (NEG-TRACE) MG/DL Urine Glucose (UA) (NEG) MG/DL Urine Ketones (NEG) MG/DL Urine Blood (NEG) Urine Nitrite (NEG) Ur Leukocyte Esterase (NEG) Urine RBC (0) /HPF Urine WBC (0-4) /HPF Ur Squamous Epith Cells /LPF Urine Bacteria /LPF Urine Test (NEGATIVE) Urine Opiates Screen (Not Detect) Urine Fentanyl Screen (Not Detect) Ur Barbiturates Screen (Not Detect) Ur Phencyclidine Scrn (Not Detect) Ur Amphetamines Screen (Not Detect) U Benzodiazepines Scrn (Not Detect) Urine Cocaine Screen (Not Detect) U Marijuana (THC) Screen (Not Detect) COVID-19 (CLAUDINE) (Negative) COVID-19 Clin Com <KAELA Fenton - Last Filed: 09/28/21 11:54> Lab Results 09/27/21 09/27/21 09/27/21 Range/Units 17:40 17:40 17:40 WBC (4.8-10.8) X10*3/uL RBC (4.20-5.50) X10*6/uL Hgb (12.0-16.0) g/dl Hct (37.0-47.0) % MCV (80.0-98.0) fL MCH (27.0-33.0) pg MCHC (31.0-35.0) g/dl RDW (11.0-16.0) % Plt Count (160-400) X10*3/uL MPV (9.4-12.3) fL Immature Gran % (Auto) (0.0-0.4) % Neut % (Auto) (45-73) % Lymph % (Auto) (20-40) % [place] % (Auto) (2-11) % Eos % (Auto) (0-4) % Baso % (Auto) (0-2) % Lymph # (Auto) (1.2-4.9) X10*3/uL [place] # (Auto) (0.1-1.2) X10*3/uL Eos # (Auto) (0.0-0.4) X10*3/uL Baso # (Auto) (0.0-0.2) X10*3/uL Abs Immat Gran (auto) (0.00-0.03) X10*3/uL Absolute Neuts (auto) (2.0-8.3) x10*3/uL Absolute Nucleated RBC (0.0-0.012) X10*3/uL Nucleated RBC % (auto) (0.0-0.2) /100WBC Sodium (135-145) mmol/L Potassium (3.3-5.1) mmol/L Chloride (96-108) mmol/L Carbon Dioxide (22-29) mmol/L Anion Gap (12-20) BUN (9-16) mg/dL Creatinine (0.5-1.4) mg/dL Estim Creat Clear Calc Estimated GFR Random Glucose (60-115) mg/dL Calcium (8.4-10.2) mg/dL Magnesium (1.6-2.6) mg/dL Beta HCG, Quant mIU/mL Urine Color YELLOW Urine Appearance HAZY Urine pH 6.0 (5.0-8.0) Ur Specific [place] 1.025 (1.005-1.025) Urine Protein NEG (NEG-TRACE) MG/DL Urine Glucose (UA) NEG (NEG) MG/DL Urine Ketones 5 (NEG) MG/DL Urine Blood 3+ H (NEG) Urine Nitrite NEG (NEG) Ur Leukocyte Esterase TRACE H (NEG) Urine RBC TNTC H (0) /HPF Urine WBC 1-4 (0-4) /HPF Ur Squamous Epith Cells 1+ /LPF Urine Bacteria TRACE /LPF Urine Test NEGATIVE (NEGATIVE) Urine Opiates Screen Not Detected (Not Detect) Urine Fentanyl Screen Not Detected (Not Detect) Ur Barbiturates Screen Not Detected (Not Detect) Ur Phencyclidine Scrn Not Detected (Not Detect) Ur Amphetamines Screen Not Detected (Not Detect) U Benzodiazepines Scrn Not Detected (Not Detect) Urine Cocaine Screen Not Detected (Not Detect) U Marijuana (THC) Screen Not Detected (Not Detect) COVID-19 (CLAUDINE) (Negative) COVID-19 Clin Com 09/27/21 09/27/21 09/27/21 Range/Units 17:41 17:52 17:52 WBC 8.4 (4.8-10.8) X10*3/uL RBC 3.88 L (4.20-5.50) X10*6/uL Hgb 11.9 L (12.0-16.0) g/dl Hct 35.6 L (37.0-47.0) % MCV 91.8 (80.0-98.0) fL MCH 30.7 (27.0-33.0) pg MCHC 33.4 (31.0-35.0) g/dl RDW 13.6 (11.0-16.0) % Plt Count 214 D (160-400) X10*3/uL MPV 12.0 (9.4-12.3) fL Immature Gran % (Auto) 0.6 H (0.0-0.4) % Neut % (Auto) 67.2 (45-73) % Lymph % (Auto) 24.1 (20-40) % Evangeline % (Auto) 6.0 (2-11) % Eos % (Auto) 1.3 (0-4) % Baso % (Auto) 0.8 (0-2) % Lymph # (Auto) 2.0 (1.2-4.9) X10*3/uL Evangeline # (Auto) 0.5 (0.1-1.2) X10*3/uL Eos # (Auto) 0.1 (0.0-0.4) X10*3/uL Baso # (Auto) 0.1 (0.0-0.2) X10*3/uL Abs Immat Gran (auto) 0.05 H (0.00-0.03) X10*3/uL Absolute Neuts (auto) 5.6 (2.0-8.3) x10*3/uL Absolute Nucleated RBC 0.000 (0.0-0.012) X10*3/uL Nucleated RBC % (auto) 0.0 (0.0-0.2) /100WBC Sodium 139 (135-145) mmol/L Potassium 4.1 (3.3-5.1) mmol/L Chloride 102 (96-108) mmol/L Carbon Dioxide 24 (22-29) mmol/L Anion Gap 17 (12-20) BUN 12 (9-16) mg/dL Creatinine 1.20 (0.5-1.4) mg/dL Estim Creat Clear Calc 56.4 Estimated GFR 49 Random Glucose 76 (60-115) mg/dL Calcium 9.4 (8.4-10.2) mg/dL Magnesium 2.1 (1.6-2.6) mg/dL Beta HCG, Quant mIU/mL Urine Color Urine Appearance Urine pH (5.0-8.0) Ur Specific [place] (1.005-1.025) Urine Protein (NEG-TRACE) MG/DL Urine Glucose (UA) (NEG) MG/DL Urine Ketones (NEG) MG/DL Urine Blood (NEG) Urine Nitrite (NEG) Ur Leukocyte Esterase (NEG) Urine RBC (0) /HPF Urine WBC (0-4) /HPF Ur Squamous Epith Cells /LPF Urine Bacteria /LPF Urine Test (NEGATIVE) Urine Opiates Screen (Not Detect) Urine Fentanyl Screen (Not Detect) Ur Barbiturates Screen (Not Detect) Ur Phencyclidine Scrn (Not Detect) Ur Amphetamines Screen (Not Detect) U Benzodiazepines Scrn (Not Detect) Urine Cocaine Screen (Not Detect) U Marijuana (THC) Screen (Not Detect) COVID-19 (CLAUDINE) Negative (Negative) COVID-19 Clin Com See Note 09/27/21 Range/Units 17:52 WBC (4.8-10.8) X10*3/uL RBC (4.20-5.50) X10*6/uL Hgb (12.0-16.0) g/dl Hct (37.0-47.0) % MCV (80.0-98.0) fL MCH (27.0-33.0) pg MCHC (31.0-35.0) g/dl RDW (11.0-16.0) % Plt Count (160-400) X10*3/uL MPV (9.4-12.3) fL Immature Gran % (Auto) (0.0-0.4) % Neut % (Auto) (45-73) % Lymph % (Auto) (20-40) % Evangeline % (Auto) (2-11) % Eos % (Auto) (0-4) % Baso % (Auto) (0-2) % Lymph # (Auto) (1.2-4.9) X10*3/uL Evangeline # (Auto) (0.1-1.2) X10*3/uL Eos # (Auto) (0.0-0.4) X10*3/uL Baso # (Auto) (0.0-0.2) X10*3/uL Abs Immat Gran (auto) (0.00-0.03) X10*3/uL Absolute Neuts (auto) (2.0-8.3) x10*3/uL Absolute Nucleated RBC (0.0-0.012) X10*3/uL Nucleated RBC % (auto) (0.0-0.2) /100WBC Sodium (135-145) mmol/L Potassium (3.3-5.1) mmol/L Chloride (96-108) mmol/L Carbon Dioxide (22-29) mmol/L Anion Gap (12-20) BUN (9-16) mg/dL Creatinine (0.5-1.4) mg/dL Estim Creat Clear Calc Estimated GFR Random Glucose (60-115) mg/dL Calcium (8.4-10.2) mg/dL Magnesium (1.6-2.6) mg/dL Beta HCG, Quant < 2 mIU/mL Urine Color Urine Appearance Urine pH (5.0-8.0) Ur Specific [place] (1.005-1.025) Urine Protein (NEG-TRACE) MG/DL Urine Glucose (UA) (NEG) MG/DL Urine Ketones (NEG) MG/DL Urine Blood (NEG) Urine Nitrite (NEG) Ur Leukocyte Esterase (NEG) Urine RBC (0) /HPF Urine WBC (0-4) /HPF Ur Squamous Epith Cells /LPF Urine Bacteria /LPF Urine Test (NEGATIVE) Urine Opiates Screen (Not Detect) Urine Fentanyl Screen (Not Detect) Ur Barbiturates Screen (Not Detect) Ur Phencyclidine Scrn (Not Detect) Ur Amphetamines Screen (Not Detect) U Benzodiazepines Scrn (Not Detect) Urine Cocaine Screen (Not Detect) U Marijuana (THC) Screen (Not Detect) COVID-19 (CLAUDINE) (Negative) COVID-19 Clin Com <Itzel Leary MD - Last Filed: 09/28/21 15:38> Lab Results 09/27/21 09/27/21 09/27/21 Range/Units 17:40 17:40 17:40 WBC (4.8-10.8) X10*3/uL RBC (4.20-5.50) X10*6/uL Hgb (12.0-16.0) g/dl Hct (37.0-47.0) % MCV (80.0-98.0) fL MCH (27.0-33.0) pg MCHC (31.0-35.0) g/dl RDW (11.0-16.0) % Plt Count (160-400) X10*3/uL MPV (9.4-12.3) fL Immature Gran % (Auto) (0.0-0.4) % Neut % (Auto) (45-73) % Lymph % (Auto) (20-40) % Evangeline % (Auto) (2-11) % Eos % (Auto) (0-4) % Baso % (Auto) (0-2) % Lymph # (Auto) (1.2-4.9) X10*3/uL Evangeline # (Auto) (0.1-1.2) X10*3/uL Eos # (Auto) (0.0-0.4) X10*3/uL Baso # (Auto) (0.0-0.2) X10*3/uL Abs Immat Gran (auto) (0.00-0.03) X10*3/uL Absolute Neuts (auto) (2.0-8.3) x10*3/uL Absolute Nucleated RBC (0.0-0.012) X10*3/uL Nucleated RBC % (auto) (0.0-0.2) /100WBC Sodium (135-145) mmol/L Potassium (3.3-5.1) mmol/L Chloride (96-108) mmol/L Carbon Dioxide (22-29) mmol/L Anion Gap (12-20) BUN (9-16) mg/dL Creatinine (0.5-1.4) mg/dL Estim Creat Clear Calc Estimated GFR Random Glucose (60-115) mg/dL Calcium (8.4-10.2) mg/dL Magnesium (1.6-2.6) mg/dL Beta HCG, Quant mIU/mL Urine Color YELLOW Urine Appearance HAZY Urine pH 6.0 (5.0-8.0) Ur Specific [place] 1.025 (1.005-1.025) Urine Protein NEG (NEG-TRACE) MG/DL Urine Glucose (UA) NEG (NEG) MG/DL Urine Ketones 5 (NEG) MG/DL Urine Blood 3+ H (NEG) Urine Nitrite NEG (NEG) Ur Leukocyte Esterase TRACE H (NEG) Urine RBC TNTC H (0) /HPF Urine WBC 1-4 (0-4) /HPF Ur Squamous Epith Cells 1+ /LPF Urine Bacteria TRACE /LPF Urine Test NEGATIVE (NEGATIVE) Urine Opiates Screen Not Detected (Not Detect) Urine Fentanyl Screen Not Detected (Not Detect) Ur Barbiturates Screen Not Detected (Not Detect) Ur Phencyclidine Scrn Not Detected (Not Detect) Ur Amphetamines Screen Not Detected (Not Detect) U Benzodiazepines Scrn Not Detected (Not Detect) Urine Cocaine Screen Not Detected (Not Detect) U Marijuana (THC) Screen Not Detected (Not Detect) COVID-19 (CLAUDINE) (Negative) COVID-19 Clin Com 09/27/21 09/27/21 09/27/21 Range/Units 17:41 17:52 17:52 WBC 8.4 (4.8-10.8) X10*3/uL RBC 3.88 L (4.20-5.50) X10*6/uL Hgb 11.9 L (12.0-16.0) g/dl Hct 35.6 L (37.0-47.0) % MCV 91.8 (80.0-98.0) fL MCH 30.7 (27.0-33.0) pg MCHC 33.4 (31.0-35.0) g/dl RDW 13.6 (11.0-16.0) % Plt Count 214 D (160-400) X10*3/uL MPV 12.0 (9.4-12.3) fL Immature Gran % (Auto) 0.6 H (0.0-0.4) % Neut % (Auto) 67.2 (45-73) % Lymph % (Auto) 24.1 (20-40) % Evangeline % (Auto) 6.0 (2-11) % Eos % (Auto) 1.3 (0-4) % Baso % (Auto) 0.8 (0-2) % Lymph # (Auto) 2.0 (1.2-4.9) X10*3/uL Evangeline # (Auto) 0.5 (0.1-1.2) X10*3/uL Eos # (Auto) 0.1 (0.0-0.4) X10*3/uL Baso # (Auto) 0.1 (0.0-0.2) X10*3/uL Abs Immat Gran (auto) 0.05 H (0.00-0.03) X10*3/uL Absolute Neuts (auto) 5.6 (2.0-8.3) x10*3/uL Absolute Nucleated RBC 0.000 (0.0-0.012) X10*3/uL Nucleated RBC % (auto) 0.0 (0.0-0.2) /100WBC Sodium 139 (135-145) mmol/L Potassium 4.1 (3.3-5.1) mmol/L Chloride 102 (96-108) mmol/L Carbon Dioxide 24 (22-29) mmol/L Anion Gap 17 (12-20) BUN 12 (9-16) mg/dL Creatinine 1.20 (0.5-1.4) mg/dL Estim Creat Clear Calc 56.4 Estimated GFR 49 Random Glucose 76 (60-115) mg/dL Calcium 9.4 (8.4-10.2) mg/dL Magnesium 2.1 (1.6-2.6) mg/dL Beta HCG, Quant mIU/mL Urine Color Urine Appearance Urine pH (5.0-8.0) Ur Specific [place] (1.005-1.025) Urine Protein (NEG-TRACE) MG/DL Urine Glucose (UA) (NEG) MG/DL Urine Ketones (NEG) MG/DL Urine Blood (NEG) Urine Nitrite (NEG) Ur Leukocyte Esterase (NEG) Urine RBC (0) /HPF Urine WBC (0-4) /HPF Ur Squamous Epith Cells /LPF Urine Bacteria /LPF Urine Test (NEGATIVE) Urine Opiates Screen (Not Detect) Urine Fentanyl Screen (Not Detect) Ur Barbiturates Screen (Not Detect) Ur Phencyclidine Scrn (Not Detect) Ur Amphetamines Screen (Not Detect) U Benzodiazepines Scrn (Not Detect) Urine Cocaine Screen (Not Detect) U Marijuana (THC) Screen (Not Detect) COVID-19 (CLAUDINE) Negative (Negative) COVID-19 Clin Com See Note 09/27/21 Range/Units 17:52 WBC (4.8-10.8) X10*3/uL RBC (4.20-5.50) X10*6/uL Hgb (12.0-16.0) g/dl Hct (37.0-47.0) % MCV (80.0-98.0) fL MCH (27.0-33.0) pg MCHC (31.0-35.0) g/dl RDW (11.0-16.0) % Plt Count (160-400) X10*3/uL MPV (9.4-12.3) fL Immature Gran % (Auto) (0.0-0.4) % Neut % (Auto) (45-73) % Lymph % (Auto) (20-40) % Evangeline % (Auto) (2-11) % Eos % (Auto) (0-4) % Baso % (Auto) (0-2) % Lymph # (Auto) (1.2-4.9) X10*3/uL Ev[place]eline # (Auto) (0.1-1.2) X10*3/uL Eos # (Auto) (0.0-0.4) X10*3/uL Baso # (Auto) (0.0-0.2) X10*3/uL Abs Immat Gran (auto) (0.00-0.03) X10*3/uL Absolute Neuts (auto) (2.0-8.3) x10*3/uL Absolute Nucleated RBC (0.0-0.012) X10*3/uL Nucleated RBC % (auto) (0.0-0.2) /100WBC Sodium (135-145) mmol/L Potassium (3.3-5.1) mmol/L Chloride (96-108) mmol/L Carbon Dioxide (22-29) mmol/L Anion Gap (12-20) BUN (9-16) mg/dL Creatinine (0.5-1.4) mg/dL Estim Creat Clear Calc Estimated GFR Random Glucose (60-115) mg/dL Calcium (8.4-10.2) mg/dL Magnesium (1.6-2.6) mg/dL Beta HCG, Quant < 2 mIU/mL Urine Color Urine Appearance Urine pH (5.0-8.0) Ur Specific [place] (1.005-1.025) Urine Protein (NEG-TRACE) MG/DL Urine Glucose (UA) (NEG) MG/DL Urine Ketones (NEG) MG/DL Urine Blood (NEG) Urine Nitrite (NEG) Ur Leukocyte Esterase (NEG) Urine RBC (0) /HPF Urine WBC (0-4) /HPF Ur Squamous Epith Cells /LPF Urine Bacteria /LPF Urine Test (NEGATIVE) Urine Opiates Screen (Not Detect) Urine Fentanyl Screen (Not Detect) Ur Barbiturates Screen (Not Detect) Ur Phencyclidine Scrn (Not Detect) Ur Amphetamines Screen (Not Detect) U Benzodiazepines Scrn (Not Detect) Urine Cocaine Screen (Not Detect) U Marijuana (THC) Screen (Not Detect) COVID-19 (CLAUDINE) (Negative) COVID-19 Clin Com <Sherri Jacobs MD - Last Filed: 09/29/21 04:27> Discharge Plan Discharge Clinical Impression: Generalized anxiety disorder, Stye external, UTI (urinary tract inf ection), Preseptal cellulitis of right upper eyelid <KAELA Garcia - Last Filed: 09/27/21 20:30> Patient Disposition: Still a Patient <KAELA Garcia - Last Filed: 09/27/21 20:30> Prescriptions: No Action clonidine HCl 0.1 mg Tablet 0.1 mg PO BID Qty: 60 0RF Protocol: Hold for SBP< HOLD for SBP < : 90 lorazepam 0.5 mg Tablet 0.5 mg PO BID PRN (Reason: Anxiety) Qty: 14 4RF mirtazapine 15 mg Tablet 15 mg PO BEDTIME Qty: 30 0RF lamotrigine 100 mg Tablet 100 mg PO BID Qty: 60 0RF cyclobenzaprine 5 mg Tablet 5 mg PO TID PRN (Reason: muscle spasms) Qty: 90 0RF erythromycin 5 mg/gram (0.5 %) Ointment 1 appl OPHTHALMIC-RIGHT TID tobramycin-dexamethasone 0.3-0.1 % Drops,Suspension 1 drp OPHTHALMIC-RIGHT QID <KAELA Garcia - Last Filed: 09/27/21 20:30>
[2021-09-27] MEDS: cloNIDine HCL 0.1 MG TABLET PO (22:36)
[2021-09-27] MEDS: Mirtazapine 15 MG TABLET PO (22:36)
[2021-09-27] MEDS: lamoTRIgine 100 MG TABLET PO (22:39)
[2021-09-27] MEDS: Erythromycin Base 0.5% Oph Oin 1 GM TUBE 1 CM EYE-RIGHT (22:39)
[2021-09-27] MEDS: Sulfamethox/Trimeth 800/160 TABLET 1 TAB PO (22:39)
[2021-09-27 22:45] VITALS: BP 104/79; PULSE 75; RESP 16; TEMP 36.9; O2SAT 98
[2021-09-28 06:13] VITALS: BP 124/73; PULSE 84; RESP 16; TEMP 36.8; O2SAT 98
--- NOTE | 2021-09-28 07:18 | PC.NURSE ---
patient appearsd to remain at rest at present resp[irations are even and unlabored patient appears in no distress
[2021-09-28] MEDS: Sulfamethox/Trimeth 800/160 TABLET 1 TAB PO ×2 (09:12→21:58)
[2021-09-28] MEDS: lamoTRIgine 100 MG TABLET PO ×2 (09:12→21:58)
[2021-09-28] MEDS: cloNIDine HCL 0.1 MG TABLET PO ×2 (09:12→21:58)
[2021-09-28] MEDS: Erythromycin Base 0.5% Oph Oin 1 GM TUBE 1 CM EYE-RIGHT ×3 (09:12→22:00)
[2021-09-28] MEDS: LORazepam 0.5 MG TABLET PO (13:36)
[2021-09-28 14:07] VITALS: BP 109/63; PULSE 86; RESP 16; TEMP 36.8; O2SAT 98
[2021-09-28] MEDS: hydrOXYzine HCL 50 MG TABLET PO (15:17)
[2021-09-28 21:58] VITALS: BP 105/62; PULSE 81; RESP 18; TEMP 36.5; O2SAT 99
[2021-09-28] MEDS: Mirtazapine 15 MG TABLET PO (21:58)
[2021-09-29 06:13] VITALS: BP 108/59; PULSE 82; RESP 16; TEMP 36.8; O2SAT 96
--- NOTE | 2021-09-29 07:05 | PC.NURSE ---
patient appears to remain at rest at present patient sits in room eating breakfast patient appears in no distress
--- NOTE | 2021-09-29 07:09 | PC.NURSE ---
Patient slept through the night, no distress observed/reported, patient report multiple needs, visits bathroom frequently however, unable to provide urine sample, awaiting BHN evaluation, BHn called for ETA/no clinician available yesterday, patient will be evaluated today, medication compliant, behavior non concerning, VSS, will continue to monitor.
--- NOTE | 2021-09-29 07:18 | PC.NURSE ---
Patient slept through the night, no distress observed/reported, disposition per care team is section 12 inpatient bed search, medication compliant, behavior non concerning, VSS, will continue to monitor.
[2021-09-29] MEDS: cloNIDine HCL 0.1 MG TABLET PO (08:09)
[2021-09-29] MEDS: Sulfamethox/Trimeth 800/160 TABLET 1 TAB PO ×2 (08:10→21:07)
[2021-09-29] MEDS: Erythromycin Base 0.5% Oph Oin 1 GM TUBE 1 CM EYE-RIGHT ×3 (08:10→21:08)
[2021-09-29] MEDS: lamoTRIgine 100 MG TABLET PO ×2 (08:10→21:07)
--- NOTE | 2021-09-29 09:10 | PHA.MEDREC ---
Pharmacy Consult ? Medication Reconciliation Pharmacy has completed the medication reconciliation. PT NEVER STARTED COPAXONE AND WANTS TO WAIT UNTIL OUT OF HOSPITAL. SHE HAD ORDERS TO START LATUDA FROM [facility]TE 09/18/21. SHE HAD BEEN GETTING 40 MG PO DAILY@1700. SHE DID NOT FILL THE RX FOR #3 PILLS BECAUSE IT WAS $51. SHE HAS SINCE GOTTEN INSURANCE APPROVAL FOR LAUTDA AND WANTED TO MAKE SURE IT WAS ON HER MED LIST.
[2021-09-29 11:33] VITALS: BP 95/53; PULSE 76; RESP 18; O2SAT 98
[2021-09-29 16:04] VITALS: BP 99/63; PULSE 76; RESP 20; TEMP 37.1; O2SAT 97
[2021-09-29] MEDS: LORazepam 0.5 MG TABLET PO (16:36)
[2021-09-29 21:05] VITALS: BP 101/55; PULSE 73; RESP 16; TEMP 37.2; O2SAT 96
[2021-09-29] MEDS: Mirtazapine 15 MG TABLET PO (21:07)
[2021-09-30 06:17] VITALS: BP 99/64; PULSE 70; RESP 16; TEMP 37.2; O2SAT 96
--- NOTE | 2021-09-30 06:27 | PC.NURSE ---
Patient slept through the night, no distress observed/reported, disposition per care team is section 12 inpatient bed search, no update on bed search, medication compliant, held HS Clonidine 0.1 mg for low BP, behavior non concerning, VSS, will continue to monitor.
[2021-09-30 08:06] VITALS: BP 114/65; PULSE 84; RESP 14; TEMP 36.8; O2SAT 97
[2021-09-30] MEDS: LORazepam 0.5 MG TABLET PO ×2 (09:35→15:59)
[2021-09-30] MEDS: lamoTRIgine 100 MG TABLET PO ×2 (09:35→20:00)
[2021-09-30] MEDS: Erythromycin Base 0.5% Oph Oin 1 GM TUBE 1 CM EYE-RIGHT ×3 (09:35→20:00)
[2021-09-30] MEDS: cloNIDine HCL 0.1 MG TABLET PO ×2 (09:35→20:00)
[2021-09-30] MEDS: Sulfamethox/Trimeth 800/160 TABLET 1 TAB PO ×2 (09:35→20:00)
[2021-09-30 11:45] LABS: IDNOW Serial# 9DB6401D
[2021-09-30 11:46] LABS: COVID-19 Test Negative (Negative)
--- NOTE | 2021-09-30 13:42 | PC.NURSE ---
Patient has been pleasant, calm/cooperative, throughout this RN's shift. Pt able to make needs known, ambulates with steady gait. Pt took all medications as ordered without issue. Has swelling/pain to right eyelid, to which antibiotics and eye drops are applied as ordered. Currently reading a book, and spoke with her mother earlier. Anticipated visit from mother shortly.
[2021-09-30 15:30] VITALS: BP 123/73; PULSE 102; RESP 18; TEMP 36.8; O2SAT 96
--- NOTE | 2021-09-30 17:28 | PC.ADMIT ---
Pt is a 40 year old, Yoruba speaking, female, who is familiar to , arrived from the ED at 1520 on 09/30/2021. Pt is COVID neg and Tox negative. Pt has a hx of ETOH substance use and is in remission for 3+ years. Pt is here due to [facility] recommendation of higher care due to pt presentation at [facility] intake of crying and disorganized thoughts. Pt has good insight in seeking care at the ED but appears to have been neglecting self care such as bathing. Pt reports needing reminders to eat and reports she doesn't eat a lot. Pt reports a previous suicide attempt a couple weeks ago but no attempts since her last discharge from . Pt advocates for self, is help seeking, and goal oriented. Pt wants to become more organized and more of a support to her family. Pt reports wanting to possibly go back to work in the future. Pt appears with a blunted affect, is tearful during admission when talking about children. Provider notified upon admission and orders are placed. Pt denies AH at this time but reports having them. Pt denies SI/HI/VH. Pt reports feeling safe on the unit. Pt is calm, cooperative and pleasant. Stable mood. Start treatment and monitor for safety.
[2021-09-30] MEDS: Lurasidone HCl 40 MG TABLET PO (17:47)
[2021-09-30 19:45] VITALS: BP 108/67; PULSE 76; TEMP 36.7
[2021-09-30] MEDS: Mirtazapine 15 MG TABLET PO (20:00)
[2021-10-01] MEDS: lamoTRIgine 100 MG TABLET PO ×2 (08:27→20:01)
[2021-10-01] MEDS: Erythromycin Base 0.5% Oph Oin 1 GM TUBE 1 CM EYE-RIGHT ×3 (08:27→20:01)
[2021-10-01] MEDS: cloNIDine HCL 0.1 MG TABLET PO (08:27)
[2021-10-01] MEDS: Sulfamethox/Trimeth 800/160 TABLET 1 TAB PO ×2 (08:27→20:01)
[2021-10-01 08:35] VITALS: BP 110/66; PULSE 80; RESP 17; TEMP 36.8; O2SAT 97
[2021-10-01 09:40] LABS: Estimated Average Glucose 94 mg/dL; Hemoglobin A1c % 4.9 %
[2021-10-01 09:53] LABS: Cholesterol 204 mg/dL; HDL Cholesterol 73 mg/dL; LDL Cholesterol Calculated 119 mg/dl; Magnesium 2.1 mg/dL (1.6-2.6); Triglycerides 61 mg/dL
--- NOTE | 2021-10-01 10:01 | P.HPPS_ITS ---
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 At last admission, Patient was started on Latuda however because of insurance issue she was not able to continue it. Initially, Patient has a hard time describing whether she has auditory hallucinations or if it is her own thoughts. However she is able to fully conclude that she has both and has been experiencing an increase in auditory hallucinations that sound like a computer generated voice and tell her things like she is going to lose her kids, she should fast...should stop drinking coffee. Patient also reports that for the past 3 months she has had increasing troubles concentrating and focusing on things and is not sure why. Chief finds it hard sometimes to articulate her thoughts or get the word she wants; she and her family noticed that she is forgetful, like leaving the burner on. She is not sure if it is due to MS (two new lesions were found), medications or something else. Patient shares that abo ut a year ago she started believing she has [place] syndrome (documented syndrome suffered by diplomats living in [place]) and says there is good evidence that civilians in [place] are being targeted. She said there was a person she thought had too much information about her..(she thinks one possible reason she's been targeted is that her 's uncle has a high ranking [facility] official). On further inquiry she said this was an issue for her months ago but that she no longer thinks about it at all. Patient is open to medication changes. She really wants something to help her focus in the morning but agrees that medication like antipsychotics could help. Agrees to Abilify Patient expresses some OCD like symptoms and wonders if she has OCD. She denies any SI at all; has remained sober for 4 years and no other drug use; denies history of manic episodes; denies trauma hx Past Psychiatric History: Med trials: sertraline (exacerbated SI), lamotrigine, risperidone (flattening, decreased energy). [facility] August 2021 Prior hospitalizations [facility]: 2X, [place], [place] 08/16/21-08/20/21. Other hospitalization was 5 years ago. Several detox stays (alcohol) Has current therapist (Mckay Iyer) and psychiatric provider (Gita Morales) through [facility]. Patient said that she was fully functional without problems up until about 37 years old. Medication history: Risperdal for 4 years (which means around 36 years old) which was helpful but cause some sedation (it was b.i.d.) Zoloft: A little over a month ago, after 2 weeks caused suicidal ideation Wellbutrin: Only took for 2 days; is still open to it Medical Evaluation Reviewed: Yes [facility] Medical History (Updated 10/01/21 @ 17:38 by Ariel Nicole MD) Multiple sclerosis Family History: Father: Alcohol use Disorder Grandfather: Alcohol use disorder Social History: Raised by single mother, only child. Met developmental milestones as expected. 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 , with 2 middle school age children. Has been home schooling her children, they are transitioning to other school. Her mother also lives in home. Describes family as supportive. Finances are not a stressor. No service. No legal concerns. Trauma History: None Diagnostics Vital Signs (24Hr): Vital Signs - 24 hr 09/30/21 15:30 09/30/21 19:45 10/01/21 08:35 Temperature 98.3 F 98.1 F 98.2 F Pulse Rate 102 H 76 80 Respiratory Rate 18 17 Blood Pressure 123/73 108/67 110/66 Pulse Oximetry 96 97 Oxygen Delivery Method Room Air Room Air BMI result Body Mass Index 20.2 Labs Results: 09/27/21 17:52 09/27/21 17:52 Labs: Laboratory Results - last 48 hr 09/30/21 10/01/21 10/01/21 10:37 08:24 08:24 Estimat Average Glucose 94 Hemoglobin A1c % 4.9 Magnesium 2.1 Triglycerides 61 Cholesterol 204 LDL Cholesterol, Calc 119 HDL Cholesterol 73 COVID-19 (CLAUDINE) Negative COVID-19 Clin Com See Note Meds/Allergies Meds Home Medications Medication Instructions Recorded Confirmed Type erythromycin 5 mg/gram (0.5 %) eye 1 appl ophthalmic-Right TID 09/27/21 09/27/21 History ointment tobramycin 0.3 %-dexamethasone 0.1 1 drp ophthalmic-Right QID 09/27/21 09/27/21 History % eye drops,suspension lurasidone 40 mg tablet (Latuda) 40 mg PO DAILY@1700 09/29/21 09/29/21 History Allergies Allergies Allergy/AdvReac Type Severity Reaction Status Date / Time cephalexin [From KEFLEX] Allergy Unknown ANAPHYLAXIS Verified 09/30/21 13:17 Mental Status Exam Mental Status Exam Narrative: Pt is alert and oriented; behavior is cooperative, friendly, anxious; dressed in casual attire; right eyelid red and swollen; adequate hygiene; mood is described as anxious and affect congruent; eye contact appropriate; Speech is normal rate, volume and prosody and not pressured; no psychomotor agitation/retardation present; thought process can be distracted but also organized and goal directed; Thought content is on tx, on family, on guilt, dealing with AH; some delusional content; but able to remain pertinent to relevant topics; denies any SI/HI. AH; Patients insight and judgment are impaired. 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 Patient was recently started on Latuda however because of insurance issue she was not able to continue it. Initially, Patient has a hard time describing whether she has auditory hallucinations or if it is her own thoughts. However she is able to fully conclude that she has both and has been experiencing an increase in auditory hallucinations that sound like a computer generated voice and tell her things like she is going to lose her kids, she should fast...should stop drinking coffee. Patient also reports that for the past 3 months she has had increasing troubles concentrating and focusing on things and is not sure why. Chief finds it hard sometimes to articulate her thoughts or get the word she wants; she and her family noticed that she is forgetful, like leaving the burner on. She is not sure if it is due to MS (two new lesions were found), medications or something else. Patient shares that about a year ago she started believing she has [place] syndrome (documented syndrome suffered by diplomats living in [place]) and says there is good evidence that civilians in [place] are being targeted. She said there was a person she thought had too much information about her..(she thinks one possible reason she's been targeted is that her 's uncle has a high ranking [facility] official). On further inquiry she said this was an issue for her months ago but that she no longer thinks about it at all. Patient is open to medication changes. She really wants something to help her focus in the morning but agrees that medication like antipsychotics could help. Agrees to Abilify Patient expresses some OCD like symptoms and wonders if she has OCD. She denies any SI at all; has remained sober for 4 years and no other drug use; denies history of manic episodes. PLan: CV Q 15 minutes checks Will start Abilify (wants antipsychotic that is not sedating) Continue Lamictal 100 mg b.i.d.; not sure if this causes any daytime sedation Change clonidine to p.r.n. Continue mirtazapine 15 mg q.h.s. Will consider whether increased cognitive dysfunction (trouble paying attention/focusing) is due to psychiatric illness or MS; reach out to Dr. Ortiz (at [facility]) will consider restarting Wellbutrin; stimulant medication consideration Patient educated on: diagnosis, medication risk/benefits, substance abuse and therapeutic strategies Informed Consent: understands Reason for continued inpatient stay Substantial Risk for: med/psych decompensation
[2021-10-01 10:18] LABS: Free T4 (Free Thyroxine) 1.02 ng/dL (0.71-1.85); Thyroid Stimulating Hormone 1.06 uIU/mL (0.32-4.0)
[2021-10-01 11:00] LABS: Vitamin B12 650 pg/mL (200-900)
[2021-10-01] MEDS: LORazepam 0.5 MG TABLET PO (13:23)
[2021-10-01] MEDS: ARIPiprazole 2 MG TABLET PO (17:10)
[2021-10-01 18:45] VITALS: BP 103/52; PULSE 85; TEMP 36.9
[2021-10-01] MEDS: Mirtazapine 15 MG TABLET PO (20:01)
[2021-10-02 06:00] VITALS: BP 123/66; PULSE 87; RESP 14; TEMP 36.6; O2SAT 96
[2021-10-02] MEDS: Sulfamethox/Trimeth 800/160 TABLET 1 TAB PO ×2 (08:53→20:31)
[2021-10-02] MEDS: lamoTRIgine 100 MG TABLET PO ×2 (08:53→20:31)
[2021-10-02] MEDS: Erythromycin Base 0.5% Oph Oin 1 GM TUBE 1 CM EYE-RIGHT ×3 (08:54→20:31)
[2021-10-02 09:21] LABS: Alanine Aminotransferase 14 U/L (0-31); Albumin Level 4.7 g/dL (3.5-5.0); Alkaline Phosphatase 61 U/L (39-117); Aspartate Amino Transferase 18 U/L (5-31); Bilirubin Direct < 0.2 mg/dL (0.0-0.5); Bilirubin Total 0.2 mg/dL (0.0-1.0); Iron 119 mcg/dL (30-160); Percent Iron Saturation 30 % (15-50); Total Iron Binding Capacity 396 mcg/dL (228-428); Total Protein 7.1 g/dL (6.5-8.0); Unsaturated Iron Binding 277 ug/dL
[2021-10-02] MEDS: LORazepam 0.5 MG TABLET PO ×2 (10:13→17:07)
--- NOTE | 2021-10-02 10:31 | P.PNPSI_ITS ---
Subjective Subjective Date of Service: 10/02/21 Reason For Visit: Schizoaffective D/O Depressed Interim History: Continues to have auditory hallucinations telling her not to eat into fast. Telling her that if she stops eating and drinking it will help her family. Patient ambivalent about these voices. She says she knows it is not sense and the not real however she also feels very guilty if she does eat as she has concerns there might be truth to what the voices say. Discussed medication and no side effects from starting Abilify. Wants to continue and would prefer to remain at current dose and go up slowly as needed. Patient shared more about history of paranoid delusions that started at age 37 and how she was feeling stalked by the father of 1 of her kids friends, thinking she was a targeted person with technology that weapon eyes did noises. Her did not think she was being stalked but she was so upset about it they did eventually move. This is when the auditory hallucinations started and she was admitted to [facility] about oral her 1st psychiatric admission. There started on Risperdal. Mental Status Exam Mental Status Exam Narrative: Pt is alert and oriented; behavior is cooperative, friendly, anxious; dressed in casual attire; right eyelid red and swollen; some tongue fasciculations, likely TD; adequate hygiene; mood is described as anxious and affect congruent; eye contact appropriate; Speech is normal rate, volume and prosody and not pressured; no psychomotor agitation/retardation present; thought process can be distracted but also organized and goal directed; Thought content is on tx, on family, on guilt, dealing with AH; some delusional content; but able to remain pertinent to relevant topics; denies any SI/HI. AH; Patients insight and judgment are impaired. Diagnostics Vital Signs (24Hr): Vital Signs - 24 hr 10/01/21 18:45 10/02/21 06:00 Temperature 98.5 F 97.9 F Pulse Rate 85 87 Respiratory Rate 14 Blood Pressure 103/52 L 123/66 Pulse Oximetry 96 Oxygen Delivery Method Room Air BMI result Body Mass Index 20.2 Labs Results: 09/27/21 17:52 09/27/21 17:52 Labs: Laboratory Results - last 48 hr 09/30/21 10/01/21 10/01/21 10:37 08:24 08:24 Estimat Average Glucose 94 Hemoglobin A1c % 4.9 Magnesium 2.1 Iron TIBC % Saturation Unsat Iron Binding Total Bilirubin Direct Bilirubin AST ALT Alkaline Phosphatase Total Protein Albumin Triglycerides 61 Cholesterol 204 LDL Cholesterol, Calc 119 HDL Cholesterol 73 Vitamin B12 Folate TSH 1.06 Free T4 1.02 COVID-19 ([facility]) Negative COVID-19 Clin Com See Note 10/01/21 10/02/21 08:24 08:11 Estimat Average Glucose Hemoglobin A1c % Magnesium Iron 119 TIBC 396 % Saturation 30 Unsat Iron Binding 277 Total Bilirubin 0.2 Direct Bilirubin < 0.2 AST 18 ALT 14 Alkaline Phosphatase 61 Total Protein 7.1 Albumin 4.7 Triglycerides Cholesterol LDL Cholesterol, Calc HDL Cholesterol Vitamin B12 650 Folate 15.0 TSH Free T4 COVID-19 ([facility]) COVID-19 Clin Com Medications Medications Current Medications Acetaminophen (Acetaminophen 325 Mg Tablet) 650 mg PO Q6H PRN PRN Reason: Headache/Pain Mild Scale (1-3) Al Hydroxide/Mg Hydroxide (Magnesium Hydrox/Alum Hydrox 30 Ml Oral.Susp) 30 ml PO Q6H PRN PRN Reason: Heartburn/Nausea Aripiprazole (Aripiprazole 5 Mg Tablet) 5 mg PO DAILY [facility] Clonidine HCl (Clonidine Hcl 0.1 Mg Tablet) 0.1 mg PO BID PRN; Protocol PRN Reason: anxiety Cyclobenzaprine HCl (Cyclobenzaprine Hcl 5 Mg Tablet) 5 mg PO TID PRN PRN Reason: muscle spasms Erythromycin (Erythromycin Base 0.5% Oph Oin 1 Gm Tube) 1 cm EYE-RIGHT TID [facility] Last Admin: 10/02/21 08:54 Dose: 1 cm Hydroxyzine HCl (Hydroxyzine Hcl 25 Mg Tablet) 25 mg PO Q6H PRN PRN Reason: Anxiety Lamotrigine (Lamotrigine 100 Mg Tablet) 100 mg PO BID [facility] Last Admin: 10/02/21 08:53 Dose: 100 mg Lorazepam (Lorazepam 0.5 Mg Tablet) 0.5 mg PO TID PRN PRN Reason: Anxiety Last Admin: 10/02/21 10:13 Dose: 0.5 mg Magnesium Hydroxide (Milk Of Magnesia 30 Ml Oral.Susp) 30 ml PO DAILY PRN PRN Reason: Constipation Mirtazapine (Mirtazapine 15 Mg Tablet) 15 mg PO BEDTIME [facility] Last Admin: 10/01/21 20:01 Dose: 15 mg Nicotine (Nicotine 21 Mg Patch.Td24) 21 mg TRANSDERMA DAILY [facility] Last Admin: 10/02/21 08:54 Dose: Not Given Nicotine Polacrilex (Nicotine Polacrilex Lozenge 4 Mg Lozenge) 4 mg BUCCAL Q2H PRN PRN Reason: Nicotine Cravings Pt Own (Tobramycin- Dexamethasone 0.3-0. 1 % Drops,Suspension ) 1 drop EYE- RIGHT QID [facility] Last Admin: 10/02/21 09:06 Dose: 1 drop Trazodone HCl (Trazodone Hcl 50 Mg Tablet) 50 mg PO BEDTIME PRN PRN Reason: Insomnia Trimethoprim/Sulfamethoxazole (Sulfamethox/Trimeth 800/160 Tablet) 1 tab PO BID [facility] Stop: 10/07/21 21:29 Last Admin: 10/02/21 08:53 Dose: 1 tab Allergies Allergies Allergy/AdvReac Type Severity Reaction Status Date / Time cephalexin [From KEFLEX] Allergy Unknown ANAPHYLAXIS Verified 09/30/21 13:17 Assessment & Plan Assessment & Plan (1) Schizoaffective disorder, depressive type: Status: Acute Code(s): F25.1 - Schizoaffective disorder, depressive type (2) UTI (urinary tract infection): Status: Acute Code(s): N39.0 - Urinary tract infection, site not specified (3) Generalized anxiety disorder: Status: Acute Code(s): F41.1 - Generalized anxiety disorder Assessment and Plan: Vs OCD (4) Alcohol use disorder, severe, in sustained remission: Status: Acute Code(s): F10.21 - Alcohol dependence, in remission (5) Preseptal cellulitis of right upper eyelid: Status: Acute Code(s): L03.213 - Periorbital cellulitis Plan 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 Patient was recently started on Latuda however because of insurance issue she was not able to continue it. Initially, Patient has a hard time describing whether she has auditory hallucinations or if it is her own thoughts. However she is able to fully conclude that she has both and has been experiencing an increase in auditory hallucinations that sound like a computer generated voice and tell her things like she is going to lose her kids, she should fast...should stop drinking coffee. Patient also reports that for the past 3 months she has had increasing troubles concentrating and focusing on things and is not sure why. Chief finds it hard sometimes to articulate her thoughts or get the word she wants; she and her family noticed that she is forgetful, like leaving the burner on. She is not sure if it is due to MS (two new lesions were found), medications or something else. Patient shares that about a year ago she started believing she has [place] syndrome (documented syndrome suffered by diplomats living in [place]) and says there is good evidence that civilians in [place] are being targeted. She said there was a person she thought had too much information about her..(she thinks one possible reason she's been targeted is that her 's uncle has a high ranking [facility] official). On further inquiry she said this was an issue for her months ago but that she no longer thinks about it at all. Patient is open to medication changes. She really wants something to help her focus in the morning but agrees that medication like antipsychotics could help. Agrees to Abilify Patient expresses some OCD like symptoms and wonders if she has OCD. She denies any SI at all; has remained sober for 4 years and no other drug use; denies history of manic episodes. 10/02 continued AH; confused about how to handle...intellectual reasons it's not true but can't stop feeling it might be. review of literature indicates though rare, MS can cause psychotic symptoms including delusions. The fact that pt's symptoms reportedly started at 37, gives some weight to MS as etiology. That said, it is very uncommon. Will continue to assess. PLan: CV Q 15 minutes checks Continue Abilify 5mg (wants antipsychotic that is not sedating) Continue Lamictal 100 mg b.i.d.; not sure if this causes any daytime sedation Change clonidine to p.r.n. Continue mirtazapine 15 mg q.h.s. Will consider whether increased cognitive dysfunction (trouble paying attention/focusing) is due to psychiatric illness or MS; reach out to Dr. Ortiz (at [facility]) will consider restarting Wellbutrin; stimulant medication consideration I spent minutes with the patient and/or on the patient floor today, greater than?50% of which was spent counseling/coordinating care. Patient educated on: diagnosis and medication risk/benefits Informed Consent: understands Reason for contiued inpatient stay Substantial Risk for: rapid decompensation
[2021-10-02] MEDS: ARIPiprazole 5 MG TABLET PO (12:43)
[2021-10-02] MEDS: Cyclobenzaprine HCl 5 MG TABLET PO (16:48)
[2021-10-02 20:25] VITALS: BP 116/73; PULSE 78; TEMP 36.2; O2SAT 96
[2021-10-02] MEDS: cloNIDine HCL 0.1 MG TABLET PO (20:30)
[2021-10-02] MEDS: Mirtazapine 15 MG TABLET PO (20:31)
[2021-10-03 06:00] VITALS: BP 100/55; PULSE 61; TEMP 37.2; O2SAT 98
[2021-10-03 07:00] VITALS: BMI 20.1
[2021-10-03] MEDS: Sulfamethox/Trimeth 800/160 TABLET 1 TAB PO ×2 (08:40→21:01)
[2021-10-03] MEDS: ARIPiprazole 5 MG TABLET PO (08:40)
[2021-10-03] MEDS: lamoTRIgine 100 MG TABLET PO ×2 (08:40→21:01)
[2021-10-03] MEDS: Erythromycin Base 0.5% Oph Oin 1 GM TUBE 1 CM EYE-RIGHT ×3 (08:41→21:01)
--- NOTE | 2021-10-03 10:26 | HO.PSYCHPN ---
Subjective Subjective Date of Service: 10/03/21 Reason For Visit: Schizoaffective D/O Depressed Interim History: Feeling better. AH remains but she says it bothers her less today. She is interested in increased dose of Abilify. Mood is a little better. Would like to try Adderall for troubles with cognition Mental Status Exam Mental Status Exam Narrative: Pt is alert and oriented; behavior is cooperative, friendly, anxious; dressed in casual attire; right eyelid red and swollen; some tongue fasciculations, likely TD; adequate hygiene; mood is described as better and affect congruent; eye contact appropriate; Speech is normal rate, volume and prosody and not pressured; no psychomotor agitation/retardation present; thought process can be distracted but also organized and goal directed; Thought content is on tx, on family, on guilt, dealing with AH; some delusional content; but able to remain pertinent to relevant topics; denies any SI/HI. AH; Patients insight and judgment are impaired. Diagnostics Vital Signs (24Hr): Vital Signs - 24 hr 10/02/21 20:25 10/03/21 06:00 Temperature 97.1 F 98.9 F Pulse Rate 78 61 Blood Pressure 116/73 100/55 L Pulse Oximetry 96 98 BMI result Body Mass Index 20.2 Labs Results: 09/27/21 17:52 09/27/21 17:52 Labs: Laboratory Results - last 48 hr 10/01/21 10/02/21 08:24 08:11 Iron 119 TIBC 396 % Saturation 30 Unsat Iron Binding 277 Total Bilirubin 0.2 Direct Bilirubin < 0.2 AST 18 ALT 14 Alkaline Phosphatase 61 Total Protein 7.1 Albumin 4.7 Vitamin B12 650 Folate 15.0 Medications Medications Current Medications Acetaminophen (Acetaminophen 325 Mg Tablet) 650 mg PO Q6H PRN PRN Reason: Headache/Pain Mild Scale (1-3) Al Hydroxide/Mg Hydroxide (Magnesium Hydrox/Alum Hydrox 30 Ml Oral.Susp) 30 ml PO Q6H PRN PRN Reason: Heartburn/Nausea Aripiprazole (Aripiprazole 5 Mg Tablet) 5 mg PO DAILY [facility] Last Admin: 10/03/21 08:40 Dose: 5 mg Clonidine HCl (Clonidine Hcl 0.1 Mg Tablet) 0.1 mg PO BID PRN; Protocol PRN Reason: anxiety Last Admin: 10/02/21 20:30 Dose: 0.1 mg Cyclobenzaprine HCl (Cyclobenzaprine Hcl 5 Mg Tablet) 5 mg PO TID PRN PRN Reason: muscle spasms Last Admin: 10/02/21 16:48 Dose: 5 mg Erythromycin (Erythromycin Base 0.5% Oph Oin 1 Gm Tube) 1 cm EYE-RIGHT TID [facility] Last Admin: 10/03/21 08:41 Dose: 1 cm Hydroxyzine HCl (Hydroxyzine Hcl 25 Mg Tablet) 25 mg PO Q6H PRN PRN Reason: Anxiety Lamotrigine (Lamotrigine 100 Mg Tablet) 100 mg PO BID [facility] Last Admin: 10/03/21 08:40 Dose: 100 mg Lorazepam (Lorazepam 0.5 Mg Tablet) 0.5 mg PO TID PRN PRN Reason: Anxiety Last Admin: 10/02/21 17:07 Dose: 0.5 mg Magnesium Hydroxide (Milk Of Magnesia 30 Ml Oral.Susp) 30 ml PO DAILY PRN PRN Reason: Constipation Mirtazapine (Mirtazapine 15 Mg Tablet) 15 mg PO BEDTIME [facility] Last Admin: 10/02/21 20:31 Dose: 15 mg Nicotine (Nicotine 21 Mg Patch.Td24) 21 mg TRANSDERMA DAILY [facility] Last Admin: 10/03/21 09:19 Dose: Not Given Nicotine Polacrilex (Nicotine Polacrilex Lozenge 4 Mg Lozenge) 4 mg BUCCAL Q2H PRN PRN Reason: Nicotine Cravings Pt Own (Tobramycin- Dexamethasone 0.3-0. 1 % Drops,Suspension ) 1 drop EYE-RIGHT QID [facility] Last Admin: 10/03/21 08:41 Dose: 1 drop Trazodone HCl (Trazodone Hcl 50 Mg Tablet) 50 mg PO BEDTIME PRN PRN Reason: Insomnia Trimethoprim/Sulfamethoxazole (Sulfamethox/Trimeth 800/160 Tablet) 1 tab PO BID [facility] Stop: 10/07/21 21:29 Last Admin: 10/03/21 08:40 Dose: 1 tab Allergies Allergies Allergy/AdvReac Type Severity Reaction Status Date / Time cephalexin [From KEFLEX] Allergy Unknown ANAPHYLAXIS Verified 09/30/21 13:17 Assessment & Plan Assessment & Plan (1) Schizoaffective disorder, depressive type: Status: Acute Code(s): F25.1 - Schizoaffective disorder, depressive type (2) UTI (urinary tract infection): Status: Acute Code(s): N39.0 - Urinary tract infection, site not specified (3) Generalized anxiety disorder: Status: Acute Code(s): F41.1 - Generalized anxiety disorder Assessment and Plan: Vs OCD (4) Alcohol use disorder, severe, in sustained remission: Status: Acute Code(s): F10.21 - Alcohol dependence, in remission (5) Preseptal cellulitis of right upper eyelid: Status: Acute Code(s): L03.213 - Periorbital cellulitis Plan 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 Patient was recently started on Latuda however because of insurance issue she was not able to continue it. Initially, Patient has a hard time describing whether she has auditory hallucinations or if it is her own thoughts. However she is able to fully conclude that she has both and has been experiencing an increase in auditory hallucinations that sound like a computer generated voice and tell her things like she is going to lose her kids, she should fast...should stop drinking coffee. Patient also reports that for the past 3 months she has had increasing troubles concentrating and focusing on things and is not sure why. Chief finds it hard sometimes to articulate her thoughts or get the word she wants; she and her family noticed that she is forgetful, like leaving the burner on. She is not sure if it is due to MS (two new lesions were found), medications or something else. Patient shares that about a year ago she started believing she has [place] syndrome (documented syndrome suffered by diplomats living in [place]) and says there is good evidence that civilians in [place] are being targeted. She said there was a person she thought had too much information about her..(she thinks one possible reason she's been targeted is that her 's uncle has a high ranking [employer] official). On further inquiry she said this was an issue for her months ago but that she no longer thinks about it at all. Patient is open to medication changes. She really wants something to help her focus in the morning but agrees that medication like antipsychotics could help. Agrees to Abilify Patient expresses some OCD like symptoms and wonders if she has OCD. She denies any SI at all; has remained sober for 4 years and no other drug use; denies history of manic episodes. 10/02 continued AH; confused about how to handle...intellectual reasons it's not true but can't stop feeling it might be. review of literature indicates though rare, MS can cause psychotic symptoms including delusions. The fact that pt's symptoms reportedly started at 37, gives some weight to MS as etiology. That said, it is very uncommon. Will continue to assess. 10/03 Mood is better. Abilify trial seems to have helped lower auditory hallucinations and there intrusiveness; she had interested in trying higher dose. Also would like to try Adderall. Radarman reviewed literature (see excerpt below) and stimulant medication is used for cognitive dysfunction in patients with MS PLan: CV Q 15 minutes checks Continue Abilify 5mg (wants antipsychotic that is not sedating) Continue Lamictal 100 mg b.i.d.; not sure if this causes any daytime sedation Change clonidine to p.r.n. Continue mirtazapine 15 mg q.h.s. Will consider whether increased cognitive dysfunction (trouble paying attention/focusing) is due to psychiatric illness or MS; reach out to Dr. Ortiz (at [facility]) will consider restarting Wellbutrin; stimulant medication consideration Literature regarding treatment for cognitive dysfunction in patients with MS: ...crossover RCT...found signifcant medium-size treatment efects for a single dose of l-amphetamine 45?mg relative to placebo on information processing speed measures [PASAT, SDMT, and part A of the [place]-Making Test (Gonzalez?s d=0.36?0.45)]; Lower doses of l-amphetamine (15 or 30?mg) were not found to be more efcacious in improving cognitive function than placebo in this study.(Cognitive Efcacy of?Pharmacologic Treatments in?Multiple Sclerosis: A?Systematic Review Amee?Alena.?Chen1,2?? Philly?Goverover1,3?? Ashlyn?M.?Genova1,2?? Dwain?DeLuca1,2 Published online: 18 Jun 2019) I spent minutes with the patient and/or on the patient floor today, greater than?50% of which was spent counseling/coordinating care. Patient educated on: diagnosis and medication risk/benefits Informed Consent: understands Reason for contiued inpatient stay Substantial Risk for: stable for discharge
[2021-10-03] MEDS: LORazepam 0.5 MG TABLET PO (13:14)
[2021-10-03] MEDS: cloNIDine HCL 0.1 MG TABLET PO (21:01)
[2021-10-03] MEDS: Mirtazapine 15 MG TABLET PO (21:01)
[2021-10-03 21:06] VITALS: BP 138/81; PULSE 91; RESP 16; TEMP 36.5
[2021-10-04 06:00] VITALS: BP 115/73; PULSE 93; TEMP 36.7; O2SAT 96
[2021-10-04] MEDS: LORazepam 0.5 MG TABLET PO (09:09)
[2021-10-04] MEDS: ARIPiprazole 5 MG TABLET PO (09:09)
[2021-10-04] MEDS: Sulfamethox/Trimeth 800/160 TABLET 1 TAB PO ×2 (09:09→20:06)
[2021-10-04] MEDS: lamoTRIgine 100 MG TABLET PO ×2 (09:09→20:06)
[2021-10-04] MEDS: Erythromycin Base 0.5% Oph Oin 1 GM TUBE 1 CM EYE-RIGHT ×3 (09:10→20:06)
[2021-10-04] MEDS: Dextroamphetamine/Amphetamine XR 5 MG CAP.ER.24H PO (12:42)
[2021-10-04] MEDS: ARIPiprazole 2 MG TABLET PO (14:21)
[2021-10-04 16:23] VITALS: BP 119/80; PULSE 88; TEMP 37.2; O2SAT 99
--- NOTE | 2021-10-04 17:20 | P.PNPSI_ITS ---
Subjective Subjective Date of Service: 10/04/21 Reason For Visit: Schizoaffective D/O Depressed Interim History: Patient also feeling better today and auditory hallucinations again not bother her much. Oil Field Tester reviewed risks/side effects of Abilify. Given patient's continued improvement, she decided not to increase the dose at this time so as not to increase risk of side effects. Patient reports feeling benefit from Adderall, able to organize better and be more engaged. Discussed patient's tongue fasciculation and possibility that it might be due to TD from history of Risperdal Oil Field Tester talked to Dr. Yadav from [facility]; he reviewed MRI from May 2021 and reports there is very minimal lesion burden for patient and thus they Thought that psychiatric symptoms May be due to psychiatric Etiology rather than due to MS. Mental Status Exam Mental Status Exam Narrative: Pt is alert and oriented; behavior is cooperative, friendly, calmer; dressed in casual attire; right eyelid red and swollen; some tongue fasciculations, likely TD; adequate hygiene; mood is described as better and affect congruent, brighter; eye contact appropriate; Speech is normal rate, volume and prosody and not pressured; no psychomotor agitation/retardation present; thought process can be distracted but also organized and goal directed; Thought content is on tx, on family, on guilt, dealing with AH; some delusional content; but able to remain pertinent to relevant topics; denies any SI/HI. AH; Patients insight and judgment improved and adequate. Diagnostics Vital Signs (24Hr): Vital Signs - 24 hr 10/03/21 21:06 10/04/21 06:00 10/04/21 16:23 Temperature 97.7 F 98.1 F 98.9 F Pulse Rate 91 93 88 Respiratory Rate 16 Blood Pressure 138/81 115/73 119/80 Pulse Oximetry 96 99 Oxygen Delivery Method Room Air Room Air BMI result Body Mass Index 20.1 Labs Results: 09/27/21 17:52 09/27/21 17:52 Medications Medications Current Medications Acetaminophen (Acetaminophen 325 Mg Tablet) 650 mg PO Q6H PRN PRN Reason: Headache/Pain Mild Scale (1-3) Al Hydroxide/Mg Hydroxide (Magnesium Hydrox/Alum Hydrox 30 Ml Oral.Susp) 30 ml PO Q6H PRN PRN Reason: Heartburn/Nausea Amphetamine/Dextroamphetamine (Dextroamphetamine/Amphetamine Xr 5 Mg Cap.Er.24h) 5 mg PO DAILY [facility] Aripiprazole (Aripiprazole 5 Mg Tablet) 5 mg PO DAILY [facility] Clonidine HCl (Clonidine Hcl 0.1 Mg Tablet) 0.1 mg PO BID PRN; Protocol PRN Reason: anxiety Last Admin: 10/03/21 21:01 Dose: 0.1 mg Cyclobenzaprine HCl (Cyclobenzaprine Hcl 5 Mg Tablet) 5 mg PO TID PRN PRN Reason: muscle spasms Last Admin: 10/02/21 16:48 Dose: 5 mg Erythromycin (Erythromycin Base 0.5% Oph Oin 1 Gm Tube) 1 cm EYE-RIGHT TID [facility] Last Admin: 10/04/21 14:16 Dose: 1 cm Hydroxyzine HCl (Hydroxyzine Hcl 25 Mg Tablet) 25 mg PO Q6H PRN PRN Reason: Anxiety Lamotrigine (Lamotrigine 100 Mg Tablet) 100 mg PO BID [facility] Last Admin: 10/04/21 09:09 Dose: 100 mg Lorazepam (Lorazepam 0.5 Mg Tablet) 0.5 mg PO TID PRN PRN Reason: Anxiety Last Admin: 10/04/21 09:09 Dose: 0.5 mg Magnesium Hydroxide (Milk Of Magnesia 30 Ml Oral.Susp) 30 ml PO DAILY PRN PRN Reason: Constipation Mirtazapine (Mirtazapine 15 Mg Tablet) 15 mg PO BEDTIME [facility] Last Admin: 10/03/21 21:01 Dose: 15 mg Nicotine (Nicotine 21 Mg Patch.Td24) 21 mg TRANSDERMA DAILY [facility] Last Admin: 10/04/21 09:10 Dose: Not Given Nicotine Polacrilex (Nicotine Polacrilex Lozenge 4 Mg Lozenge) 4 mg BUCCAL Q2H PRN PRN Reason: Nicotine Cravings Pt Own (Tobramycin- Dexamethasone 0.3-0. 1 % Drops,Suspension ) 1 drop EYE- RIGHT QID [facility] Last Admin: 10/04/21 16:20 Dose: 1 drop Trazodone HCl (Trazodone Hcl 50 Mg Tablet) 50 mg PO BEDTIME PRN PRN Reason: Insomnia Trimethoprim/Sulfamethoxazole (Sulfamethox/Trimeth 800/160 Tablet) 1 tab PO BID [facility] Stop: 10/07/21 21:29 Last Admin: 10/04/21 09:09 Dose: 1 tab Allergies Allergies Allergy/AdvReac Type Severity Reaction Status Date / Time cephalexin [From KEFLEX] Allergy Unknown ANAPHYLAXIS Verified 09/30/21 13:17 Assessment & Plan Assessment & Plan (1) Schizoaffective disorder, depressive type: Status: Acute Code(s): F25.1 - Schizoaffective disorder, depressive type (2) UTI (urinary tract infection): Status: Acute Code(s): N39.0 - Urinary tract infection, site not specified (3) Generalized anxiety disorder: Status: Acute Code(s): F41.1 - Generalized anxiety disorder Assessment and Plan: Vs OCD (4) Alcohol use disorder, severe, in sustained remission: Status: Acute Code(s): F10.21 - Alcohol dependence, in remission (5) Preseptal cellulitis of right upper eyelid: Status: Acute Code(s): L03.213 - Periorbital cellulitis Plan 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 Patient was recently started on Latuda however because of insurance issue she was not able to continue it. Initially, Patient has a hard time describing whether she has auditory hallucinations or if it is her own thoughts. However she is able to fully conclude that she has both and has been experiencing an increase in auditory hallucinations that sound like a computer generated voice and tell her things like she is going to lose her kids, she should fast...should stop drinking coffee. Patient also reports that for the past 3 months she has had increasing troubles concentrating and focusing on things and is not sure why. Chief finds it hard sometimes to articulate her thoughts or get the word she wants; she and her family noticed that she is forgetful, like leaving the burner on. She is not sure if it is due to MS (two new lesions were found), medications or something else. Patient shares that about a year ago she started believing she has [place] syndrome (documented syndrome suffered by diplomats living in [place]) and says there is good evidence that civilians in [place] are being targeted. She said there was a person she thought had too much information about her..(she thinks one possible reason she's been targeted is that her 's uncle has a high ranking [facility] official). On further inquiry she said this was an issue for her months ago but that she no longer thinks about it at all. Patient is open to medication changes. She really wants something to help her focus in the morning but agrees that medication like antipsychotics could help. Agrees to Abilify Patient expresses some OCD like symptoms and wonders if she has OCD. She denies any SI at all; has remained sober for 4 years and no other drug use; denies history of manic episodes. 10/02 continued AH; confused about how to handle...intellectual reasons it's not true but can't stop feeling it might be. review of literature indicates though rare, MS can cause psychotic symptoms including delusions. The fact that pt's symptoms reportedly started at 37, gives some weight to MS as etiology. That said, it is very uncommon. Will continue to assess. 10/03 Mood is better. Abilify trial seems to have helped lower auditory hallucinations and there intrusiveness; she had interested in trying higher dose. Also would like to try Adderall. Oil Field Tester reviewed literature (see excerpt below) and stimulant medication is used for cognitive dysfunction in patients with MS 10/04 Continues to feel better and AH remains less intrusive; feels Adderall is helping PLan: CV Q 15 minutes checks Start Adderall XR 5mg daily Continue Abilify 5mg (wants antipsychotic that is not sedating) Continue Lamictal 100 mg b.i.d.; not sure if this causes any daytime sedation Change clonidine to p.r.n. Continue mirtazapine 15 mg q.h.s. Will consider whether increased cognitive dysfunction (trouble paying attention/focusing) is due to psychiatric illness or MS; reach out to Dr. Ortiz (at [facility]) will consider restarting Wellbutrin; stimulant medication consideration Literature regarding treatment for cognitive dysfunction in patients with MS: ...crossover RCT...found signifcant medium-size treatment efects for a single dose of l-amphetamine 45?mg relative to placebo on information processing speed measures [PASAT, SDMT, and part A of the [place]-Making Test (Gonzalez?s d=0.36?0.45)]; Lower doses of l-amphetamine (15 or 30?mg) were not found to be more efcacious in improving cognitive function than placebo in this study.(Cognitive Efcacy of?Pharmacologic Treatments in?Multiple Sclerosis: A?Systematic Review Amee?Van?Mellissa1,2?? Philly?Michelle1,3?? Ashlyn?Radha.?Genvioletta1,2?? Dwain?Clinton1,2 Published online: 18 Jun 2019) I spent minutes with the patient and/or on the patient floor today, greater than?50% of which was spent counseling/coordinating care. Patient educated on: diagnosis and medication risk/benefits Informed Consent: understands Reason for contiued inpatient stay Substantial Risk for: stable for discharge
[2021-10-04] MEDS: Cyclobenzaprine HCl 5 MG TABLET PO (18:59)
[2021-10-04] MEDS: Mirtazapine 15 MG TABLET PO (20:05)
[2021-10-04] MEDS: traZODone HCL 50 MG TABLET PO (22:11)
[2021-10-05 05:27] VITALS: BP 135/79; PULSE 100; RESP 16; TEMP 36.9; O2SAT 98
[2021-10-05 08:13] LABS: Cholesterol 213 mg/dL; HDL Cholesterol 79 mg/dL; LDL Cholesterol Calculated 117 mg/dl; Triglycerides 88 mg/dL
[2021-10-05] MEDS: Dextroamphetamine/Amphetamine XR 5 MG CAP.ER.24H PO (08:24)
[2021-10-05] MEDS: Erythromycin Base 0.5% Oph Oin 1 GM TUBE 1 CM EYE-RIGHT ×3 (08:24→20:38)
[2021-10-05] MEDS: lamoTRIgine 100 MG TABLET PO ×2 (08:25→20:20)
[2021-10-05] MEDS: Sulfamethox/Trimeth 800/160 TABLET 1 TAB PO ×2 (08:25→20:20)
[2021-10-05] MEDS: ARIPiprazole 5 MG TABLET PO (08:25)
[2021-10-05 09:18] LABS: Reflex LDLD? No
[2021-10-05 17:00] VITALS: BP 154/74
[2021-10-05] MEDS: cloNIDine HCL 0.1 MG TABLET PO (17:02)
[2021-10-05 17:10] VITALS: BP 154/72; PULSE 92; RESP 16; TEMP 36.6; O2SAT 99
--- NOTE | 2021-10-05 19:59 | P.PNPSI_ITS ---
Subjective Subjective Date of Service: 10/05/21 Reason For Visit: Schizoaffective D/O Depressed Interim History: good mood; AH is low and able to be ignored; improved insight knowing AH are mind tricks and not real, pt not giving any credibility to them. Adderall helping; pt feels ready for discharge. Mental Status Exam Mental Status Exam Narrative: Pt is alert and oriented; behavior is cooperative, friendly, calm; dressed in casual attire; right eyelid red but less swollen; some tongue fasciculations, likely TD; adequate hygiene; mood is described as good and affect congruent, brighter; eye contact appropriate; Speech is normal rate, volume and prosody and not pressured; no psychomotor agitation/retardation present; thought process can be distracted but also organized and goal directed; Thought content is on tx, on family, discharge; no delusional thoughts expressed; remain pertinent to relevant topics; denies any SI/HI. minimal AH; Patients insight and judgment good Diagnostics Vital Signs (24Hr): Vital Signs - 24 hr 10/05/21 05:27 10/05/21 17:10 10/05/21 17:00 Temperature 98.5 F 97.9 F Pulse Rate 100 92 Respiratory Rate 16 16 Blood Pressure 135/79 154/72 H 154/74 H Pulse Oximetry 98 99 Oxygen Delivery Method Room Air Room Air BMI result Body Mass Index 20.1 Labs Results: 09/27/21 17:52 09/27/21 17:52 Labs: Laboratory Results - last 48 hr 10/05/21 07:20 Triglycerides 88 Cholesterol 213 LDL Cholesterol, Calc 117 HDL Cholesterol 79 Medications Medications Current Medications Acetaminophen (Acetaminophen 325 Mg Tablet) 650 mg PO Q6H PRN PRN Reason: Headache/Pain Mild Scale (1-3) Al Hydroxide/Mg Hydroxide (Magnesium Hydrox/Alum Hydrox 30 Ml Oral.Susp) 30 ml PO Q6H PRN PRN Reason: Heartburn/Nausea Amphetamine/Dextroamphetamine (Dextroamphetamine/Amphetamine Xr 5 Mg Cap.Er.24h) 5 mg PO DAILY [facility] Last Admin: 10/05/21 08:24 Dose: 5 mg Aripiprazole (Aripiprazole 5 Mg Tablet) 5 mg PO DAILY [facility] Last Admin: 10/05/21 08:25 Dose: 5 mg Clonidine HCl (Clonidine Hcl 0.1 Mg Tablet) 0.1 mg PO BID PRN; Protocol PRN Reason: anxiety Last Admin: 10/05/21 17:02 Dose: 0.1 mg Cyclobenzaprine HCl (Cyclobenzaprine Hcl 5 Mg Tablet) 5 mg PO TID PRN PRN Reason: muscle spasms Last Admin: 10/04/21 18:59 Dose: 5 mg Erythromycin (Erythromycin Base 0.5% Oph Oin 1 Gm Tube) 1 cm EYE-RIGHT TID [facility] Last Admin: 10/05/21 14:05 Dose: 1 cm Hydroxyzine HCl (Hydroxyzine Hcl 25 Mg Tablet) 25 mg PO Q6H PRN PRN Reason: Anxiety Lamotrigine (Lamotrigine 100 Mg Tablet) 100 mg PO BID [facility] Last Admin: 10/05/21 08:25 Dose: 100 mg Magnesium Hydroxide (Milk Of Magnesia 30 Ml Oral.Susp) 30 ml PO DAILY PRN PRN Reason: Constipation Mirtazapine (Mirtazapine 15 Mg Tablet) 15 mg PO BEDTIME [facility] Last Admin: 10/04/21 20:05 Dose: 15 mg Nicotine (Nicotine 21 Mg Patch.Td24) 21 mg TRANSDERMA DAILY [facility] Last Admin: 10/05/21 08:25 Dose: Not Given Nicotine Polacrilex (Nicotine Polacrilex Lozenge 4 Mg Lozenge) 4 mg BUCCAL Q2H PRN PRN Reason: Nicotine Cravings Pt Own (Tobramycin- Dexamethasone 0.3-0. 1 % Drops,Suspension ) 1 drop EYE- RIGHT QID [facility] Last Admin: 10/05/21 17:09 Dose: 1 drop Trazodone HCl (Trazodone Hcl 50 Mg Tablet) 50 mg PO BEDTIME PRN PRN Reason: Insomnia Last Admin: 10/04/21 22:11 Dose: 50 mg Trimethoprim/Sulfamethoxazole (Sulfamethox/Trimeth 800/160 Tablet) 1 tab PO BID [facility] Stop: 10/07/21 21:29 Last Admin: 10/05/21 08:25 Dose: 1 tab Allergies Allergies Allergy/AdvReac Type Severity Reaction Status Date / Time cephalexin [From KEFLEX] Allergy Unknown ANAPHYLAXIS Verified 09/30/21 13:17 Assessment & Plan Assessment & Plan (1) Schizoaffective disorder, depressive type: Status: Acute Code(s): F25.1 - Schizoaffective disorder, depressive type (2) UTI (urinary tract infection): Status: Acute Code(s): N39.0 - Urinary tract infection, site not specified (3) Generalized anxiety disorder: Status: Acute Code(s): F41.1 - Generalized anxiety disorder Assessment and Plan: Vs OCD (4) Alcohol use disorder, severe, in sustained remission: Status: Acute Code(s): F10.21 - Alcohol dependence, in remission (5) Preseptal cellulitis of right upper eyelid: Status: Acute Code(s): L03.213 - Periorbital cellulitis Plan 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 Patient was recently started on Latuda however because of insurance issue she was not able to continue it. Initially, Patient has a hard time describing whether she has auditory hallucinations or if it is her own thoughts. However she is able to fully conclude that she has both and has been experiencing an increase in auditory hallucinations that sound like a computer generated voice and tell her things like she is going to lose her kids, she should fast...should stop drinking coffee. Patient also reports that for the past 3 months she has had increasing troubles concentrating and focusing on things and is not sure why. Chief finds it hard sometimes to articulate her thoughts or get the word she wants; she and her family noticed that she is forgetful, like leaving the burner on. She is not sure if it is due to MS (two new lesions were found), medications or something else. Patient shares that about a year ago she started believing she has [place] syndrome (documented syndrome suffered by diplomats living in [place]) and says there is good evidence that civilians in [place] are being targeted. She said there was a person she thought had too much information about her..(she thinks one possible reason she's been targeted is that her 's uncle has a high ranking [facility] official). On further inquiry she said this was an issue for her months ago but that she no longer thinks about it at all. Patient is open to medication changes. She really wants something to help her focus in the morning but agrees that medication like antipsychotics could help. Agrees to Abilify Patient expresses some OCD like symptoms and wonders if she has OCD. She denies any SI at all; has remained sober for 4 years and no other drug use; denies history of manic episodes. 10/02 continued AH; confused about how to handle...intellectual reasons it's not true but can't stop feeling it might be. review of literature indicates though rare, MS can cause psychotic symptoms including delusions. The fact that pt's symptoms reportedly started at 37, gives some weight to MS as etiology. That said, it is very uncommon. Will continue to assess. 10/03 Mood is better. Abilify trial seems to have helped lower auditory hallucinations and there intrusiveness; she had interested in trying higher dose. Also would like to try Adderall. Plastics Fitter reviewed literature (see excerpt below) and stimulant medication is used for cognitive dysfunction in patients with MS 10/04 Continues to feel better and AH remains less intrusive; feels Adderall is helping 10/05 good mood; minimal AH; good insight; pt asks for discharge, returning to supportive family; appropriate for discharge home PLan: CV Q 15 minutes checks Start Adderall XR 5mg daily Continue Abilify 5mg (wants antipsychotic that is not sedating) Continue Lamictal 100 mg b.i.d.; not sure if this causes any daytime sedation Change clonidine to p.r.n. Continue mirtazapine 15 mg q.h.s. Literature regarding treatment for cognitive dysfunction in patients with MS: ...crossover RCT...found signifcant medium-size treatment efects for a single dose of l-amphetamine 45?mg relative to placebo on information processing speed measures [PASAT, SDMT, and part A of the [place]-Making Test (Gonzalez?s d=0.36?0.45)]; Lower doses of l-amphetamine (15 or 30?mg) were not found to be more efcacious in improving cognitive function than placebo in this study.(Cognitive Efcacy of?Pharmacologic Treatments in?Multiple Sclerosis: A?Systematic Review Amee?Alena.?Chen1,2?? Philly?Goverover1,3?? Ashlyn?M.?Adrianna va1,2?? Dwain?DeLuca1,2 Published online: 18 Jun 2019) I spent minutes with the patient and/or on the patient floor today, greater than?50% of which was spent counseling/coordinating care. Patient educated on: diagnosis, medication risk/benefits and therapeutic strategies Informed Consent: understands Reason for contiued inpatient stay Substantial Risk for: stable for discharge
[2021-10-05] MEDS: Mirtazapine 15 MG TABLET PO (20:20)
[2021-10-06 05:40] VITALS: BP 129/68; PULSE 85; RESP 18; TEMP 36.3; O2SAT 97
[2021-10-06] MEDS: Dextroamphetamine/Amphetamine XR 5 MG CAP.ER.24H PO (08:14)
[2021-10-06] MEDS: Erythromycin Base 0.5% Oph Oin 1 GM TUBE 1 CM EYE-RIGHT (08:14)
[2021-10-06] MEDS: Sulfamethox/Trimeth 800/160 TABLET 1 TAB PO (08:14)
[2021-10-06] MEDS: lamoTRIgine 100 MG TABLET PO (08:14)
[2021-10-06] MEDS: ARIPiprazole 5 MG TABLET PO (08:14)
--- NOTE | 2021-10-06 09:45 | P.DS_ITS ---
DS: Providers Provider Date of Service: 10/06/21 Date of admission: 09/30/21 12:44 Date of discharge: 10/06/21 Primary care physician: Frances Rankin DO Attending physician on admission: Ariel Nicole Attending physician on discharge: Ariel Nicole DS: Diagnosis Discharge Diagnosis (1) Schizoaffective disorder, depressive type: Status: Acute (2) UTI (urinary tract infection): Status: Acute (3) Generalized anxiety disorder: Status: Acute (4) Alcohol use disorder, severe, in sustained remission: Status: Acute (5) Preseptal cellulitis of right upper eyelid: Status: Acute DS: Medications Discharge Medications Home Medications: Home Medications Medication Instructions Recorded Confirmed erythromycin 5 mg/gram (0.5 %) eye 1 appl ophthalmic-Right TID 09/27/21 09/27/21 ointment tobramycin 0.3 %-dexamethasone 0.1 1 drp ophthalmic-Right QID 09/27/21 09/27/21 % eye drops,suspension Previous Rx's Medication Instructions Recorded cyclobenzaprine 5 mg tablet 5 mg PO TID PRN muscle spasms #90 09/18/21 tabs lamotrigine 100 mg tablet 100 mg PO BID #60 tabs 09/18/21 lorazepam 0.5 mg tablet 0.5 mg PO BID PRN Anxiety #14 tabs 09/18/21 mirtazapine 15 mg tablet 15 mg PO BEDTIME #30 tabs 09/18/21 aripiprazole 5 mg tablet (Abilify) 5 mg PO BEDTIME 30 days #30 tabs 10/05/21 clonidine HCl 0.1 mg tablet 0.1 mg PO BID PRN anxiety #60 tabs 10/05/21 dextroamphetamine-amphetamine ER 5 5 mg PO DAILY 30 days #30 caps 10/05/21 mg 24hr capsule,extend release Mental Status Exam Mental Status Exam Narrative: Pt is alert and oriented; behavior is cooperative, friendly, calm; dressed in casual attire; right eyelid red but less swollen; some tongue fasciculations, likely TD; adequate hygiene; mood is described as good and affect congruent, brighter; eye contact appropriate; Speech is normal rate, volume and prosody and not pressured; no psychomotor agitation/retardation present; thought process linear and organized; Thought content is on going home, future plans, tx, on family; no delusional thoughts expressed; remain pertinent to relevant topics; denies any SI/HI. minimal AH; Patients insight and judgment good Data Data Completed and Pending Completed studies during hospitalization [Text1]: 09/30/21 10/01/21 10/01/21 10:37 08:24 08:24 Estimat Average Glucose 94 Hemoglobin A1c % 4.9 Magnesium 2.1 Iron TIBC % Saturation Unsat Iron Binding Total Bilirubin Direct Bilirubin AST ALT Alkaline Phosphatase Total Protein Albumin Triglycerides 61 Cholesterol 204 LDL Cholesterol, Calc 119 HDL Cholesterol 73 Vitamin B12 Folate TSH 1.06 Free T4 1.02 COVID-19 ([facility]) Negative COVID-19 Clin Com See Note 10/01/21 10/02/21 10/05/21 08:24 08:11 07:20 Estimat Average Glucose Hemoglobin A1c % Magnesium Iron 119 TIBC 396 % Saturation 30 Unsat Iron Binding 277 Total Bilirubin 0.2 Direct Bilirubin < 0.2 AST 18 ALT 14 Alkaline Phosphatase 61 Total Protein 7.1 Albumin 4.7 Triglycerides 88 Cholesterol 213 LDL Cholesterol, Calc 117 HDL Cholesterol 79 Vitamin B12 650 Folate 15.0 TSH Free T4 COVID-19 ([facility]) COVID-19 Clin Com DS: Summary Hospital Course Hospital Course: HPI: 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 Patient was recently started on Latuda however because of insurance issue she was not able to continue it.? Initially,? Patient has a hard time describing whether she has auditory hallucinations or if it is her own thoughts.? However she is able to fully conclude that she has both and has been experiencing an increase in auditory hallucinations that sound like a computer generated voice and tell her things like she is going to lose her kids, she should fast...should stop drinking coffee. Patient also reports that for the past 3 months she has had increasing troubles concentrating and focusing on things and is not sure why.? Chief finds it hard sometimes to articulate her thoughts or get the word she wants; she and her family noticed that she is forgetful, like leaving the burner on.? She is not sure if it is due to MS (two new lesions were found), medications or some thing else.? Patient shares that about a year ago she started believing she has Varney syndrome (documented syndrome suffered by diplomats living in [place]) and says there is good evidence that civilians in [place] are being targeted.? She said there was a person she thought had too much information about her..(she thinks one possible reason she's been targeted is that her 's uncle has a high ranking [employer] official).? On further inquiry she said this was an issue for her months ago but that she no longer thinks about it at all.? Patient is open to medication changes.? She really wants something to help her focus in the morning but agrees that medication like antipsychotics could help.? Agrees to Abilify She denies any SI at all; has remained sober for 4 years and no other drug use; denies history of manic episodes. Hospital course: On admission, patient calm, cooperative, polite and engaged in treatment. She reports continued AH and expresses some delusional thoughts however she says that the thoughts are pretty able to be ignored. Patient feels like liver acetone is sedating and was not that helpful; Risperdal had been helpful in the past but she also found at sedating. She agrees to a trial of Abilify which was well tolerated and mitigated the experience of auditory hallucinations, really getting them to the background and making them able to be ignored. Patient's mood significantly improved and her affect was noticeably brighter. She said she was starting to feel like her regular self again. She continued to complain of struggles with clear thinking and focus and wanted to try Adderall. Literature indicates that this is appropriate treatment for patients with MS who have cognitive dysfunction; underwriter solicitation director discussed this with Neurology at [facility] who agreed. Patient was started on Adderall to good effect and she wanted to continue using it. Patient remained in good mood, with AH at [place] and feeling ready to go home and ready for discharge. 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 Throughout her stay on the unit she was with appropriate behaviors and impulse control and got along well with both staff and peers, attending groups and invested in treatment. Patient signed a 3 day notice. Patient returns to her supportive and family and has outpatient providers in place. Patient not in imminent risk for harm to self or others and her request for discharge honored. Regarding diagnosis (schizoaffective verse MS induced psychotic symptoms): On the 1 hand it is uncommon for someone to suddenly develop psychotic symptoms age 37 with a dx of schizophrenia. And although rare, it is also possible for MS to cause psychotic symptoms including delusions and AH. On the other hand, after discussing her MS with covering neurologist at [facility], it was reported the patient has a very low lesion burden which makes the development of such psychotic symptoms quite unlikely. Either way the treatment is the same regardless of etiology. Time spent discussing smoking cessation with patient: 3 to 10 minutes Status at Discharge Functional status at discharge: independent ambulation Overall status at discharge: patient is back to baseline Time Spent with Patient Time attestation: Total time spent providing and/or coordinating discharge services: Time spent: Less than 30 minutes Discharge Plan Discharge Patient Disposition: Home, Self-Care Discharge Diagnosis: schizoaffective disorder (provisional; r/o psychotic symptoms due to MS) Referrals: Partial Hospitalization Program (PHP) [Other] - 10/08/21 2:00 pm (This re- assessment appointment is in-person. You will begin PHP the following day on Thursday morning) Frances Rankin DO [Primary Care Provider] - 1 Week (pt to contact PCP 10/07/21 to schedule follow up appt (Unable to schedule due to weekend) ) Discharge Medications: New aripiprazole [Abilify] 5 mg Tablet 5 mg PO BEDTIME 30 Days Qty: 30 0RF dextroamphetamine-amphetamine 5 mg Capsule,Extended Release 24hr 5 mg PO DAILY 30 Days Qty: 30 0RF Rx Instructions: Partial Fill upon patient request. Continued lorazepam 0.5 mg Tablet 0.5 mg PO BID PRN (Reason: Anxiety) Qty: 14 4RF mirtazapine 15 mg Tablet 15 mg PO BEDTIME Qty: 30 0RF cyclobenzaprine 5 mg Tablet 5 mg PO TID PRN (Reason: muscle spasms) Qty: 90 0RF erythromycin 5 mg/gram (0.5 %) Ointment 1 appl OPHTHALMIC-RIGHT TID tobramycin-dexamethasone 0.3-0.1 % Drops,Suspension 1 drp OPHTHALMIC-RIGHT QID lamotrigine 100 mg Tablet 100 mg PO BID 30 Days Qty: 60 0RF Changed clonidine HCl 0.1 mg Tablet 0.1 mg PO BID PRN (Reason: anxiety) Qty: 60 0RF Protocol: Hold for SBP< HOLD for SBP < : 90 Discontinued Latuda 40 mg Tablet 40 mg PO DAILY@1700 Rx Instructions: must administer with food (at least 350 calories) Discharge Orders: Discharge Order (Routine); Ordered 10/06/21 Ordered By: Ariel Nicole Diet: Regular diet Activity on Discharge: As tolerated Stand Alone Forms: Patient Portal Discharge page, Community Support Care Plan Goals: Maintain mood and safe behaviors Take medications as prescribed Continue to pursue sobriety Practice coping skills Continue with outpatient providers and reach out to them as needed Health Concerns: Mood stability and behaviors MS Plan of Treatment: Follow up with your PCP, psychiatric provider and other outpatient providers regarding above concerns Take medications as prescribed Assessment: Risk assessment at time of discharge:? Patient was interviewed prior to discharg e and found to be fully oriented and without any SI or HI. Patient has insight and demonstrates good judgment in terms of wanting to pursue treatment. Patient is not in imminent risk of harm to self or others and has a safety plan that includes presenting to the closest ER or calling 911 if feeling unsafe.? Patient has been observed closely by nursing and unit staff throughout admission; patient has not engaged in any behaviors that suggest dangerousness to self or others and has demonstrated appropriate behaviors and impulse control Discharge Date/Time: 10/06/21 11:17
== END 2021-10-06 11:17 | disposition home or self-care (01) | DRG 750 ==
LOC: HO.ED 20:23 → HO.PM5 09-30 14:19
PROVIDERS: Clinical Nurse Specialist Psychiatric/Mental Health, Adult; Emergency Medicine; Physician Assistant Medical; Admitting Provider Psychiatry & Neurology Psychiatry; Emergency Provider Emergency Medicine Emergency Medical Services; PCP Family Medicine; Visit Provider Psychiatry & Neurology Psychiatry
DX: F25.1 Schizoaffective disorder, depressive type (principal); F41.1 Generalized anxiety disorder; G35 Multiple sclerosis; N39.0 Urinary tract infection, site not specified; L03.213 Periorbital cellulitis; Z20.822 Contact with and (suspected) exposure to COVID-19; Z87.891 Personal history of nicotine dependence; Z88.1 Allergy status to other antibiotic agents; Z79.899 Other long term (current) drug therapy
CPT/HCPCS: 36415; 80048; 80061; 80076; 80307; 81001; 81025; 82607; 82746; 83036; 83540; 83735; 84439; 84443; 84702; 85025; 87635; 93005; 99285

== ENCOUNTER 2021-10-18 09:38 | Outpatient (RCR) | payer OTHER, SELFPAY | END 2021-10-18 23:59 | disposition home or self-care (01) | LOC: HO.PHPA 09:38 | PROVIDERS: Visit Provider Psychiatry & Neurology Psychiatry | DX: F25.9 Schizoaffective disorder, unspecified (principal) ==